=== PATIENT | male | born 1980 | race Caucasian/White ===

== ENCOUNTER → 2017-06-21 13:48 | Outpatient (CLI) | payer BC, SELFPAY ==
[2017-06-21 14:03] LABS: Bacteria 0 SEEN /hpf (None Seen); Mucous, Urine 0 SEEN /hpf (<or=2+); Red Blood Cells-Urine 0 SEEN /hpf (0-5); White Blood Cells 0 SEEN /hpf (0-5)
[2017-06-21 15:11] LABS: Color, Urine Yellow (Yellow); Glucose, Dipstick Normal (Normal); Ketone-Dipstick Negative (Negative); Leukocyte Esterase-Dipstick Negative /ul (Negative); Nitrite-Dipstick Negative (Negative); Occult Blood-Urine 10 /ul (Negative); Protein-Dipstick 30 mg/dl (Negative); Urine Bilirubin Dipstick Negative (Negative); Urine Clarity Clear (Clear); Urine Urobilinogen Normal (Normal)
[2017-06-21 15:25] LABS: Squamous Epithelial Cells - UA 0-5 SEEN /hpf (0-5)
[2017-06-21 15:39] LABS: Microalbumin:Creatinine Ratio 125.4 mg/g CRE (<30 mg/g CRE); Protein, Urine (Random) 38.9 mg/dL (<11.9); Urea Nitrogen, Urine 836 mg/dL (NO RANGE EST.); Urine Sodium 184 mmol/L (Not Establ.)
== END ==
DX: R80.9 Proteinuria, unspecified (principal)
CPT/HCPCS: 36415; 81001; 82043; 82570; 84156; 84300; 84540; 87086

== ENCOUNTER → 2017-06-22 09:23 | Outpatient (CLI) | payer BC, SELFPAY ==
[2017-06-22 10:25] LABS: Absolute Lymphocyte Count 1.66 X10^3/ul (0.83-4.51); Absolute Neutrophil Count 7.6 X10^3/uL (2.0-7.7); Basophil# 0.04 X10^3/uL; Basophil% 0.4 % (0-1); Eosinophil# 0.24 X10^3/uL; Eosinophils% 2.3 % (0-5); Hematocrit 44.6 % (40-54); Hemoglobin 14.1 g/dl (13.0-16.5); Lymphocyte # 1.66 X10^3/ul (4.0); Lymphocyte % 16.1 % (19-41); Mean Corp Hgb Conc 31.6 g/gl (32-36); Mean Corpuscular Hgb 25.5 pg (27.0-32.0); Mean Corpuscular Volume 80.7 fL (80-94); Mean Platelet Vol. 10.7 fl (6.2-12.0); Monocyte# 0.81 X10^3/uL; Monocyte% 7.8 % (0-10); Neutrophil # 7.56 X10^3/uL (2.7-7.7); Neutrophil % 73.1 % (47-70); POSITIVE COUNT NO; POSITIVE DIFFERENTIAL NO; POSITIVE MORPHOLOGY NO; Platelet Count 377 K/mm3 (150-450); RBC Distribution Width CV 14.4 % (11.6-14.6); RBC Distribution Width SD 41.9 fl (35.1-43.9); Red Blood Count 5.53 M/mm3 (4.6-6.2); White Blood Count 10.3 K/mm3 (4.4-11.0)
[2017-06-22 10:52] LABS: Albumin, Serum 3.4 g/dL (3.2-5.0); BUN 17 mg/dL (7-18); BUN/Creat Ratio 17.1 RATIO (10-20); Calcium,Total 8.9 mg/dL (8.5-10.1); Chloride 102 mmol/L (98-107); Cholesterol 80 mg/dL (200); EST Glomerular Filtration Rate 89 mL/min (>60); Est Glom Filt Rate - Afr Amer 107 mL/min (>60); Glucose 90 mg/dL (74-106); High Density Lipoprotein 47 mg/dL; Phosphorus 3.4 mg/dL (2.5-4.9); Potassium 4.1 mmol/L (3.5-5.1); Sodium Level 138 mmol/L (136-145); Triglycerides 25 mg/dL; Very Low Density Lipoprotein 5 mg/dL (5-40)
== END ==
DX: R80.9 Proteinuria, unspecified (principal)
CPT/HCPCS: 36415; 80061; 80069; 85025

== ENCOUNTER → 2018-09-02 | Outpatient (CLI) | payer BC, SELFPAY ==
[2018-09-02 14:58] LABS: Hematocrit 45.4 % (40-54); Hemoglobin 15.5 g/dl (13.0-16.5); Mean Corp Hgb Conc 34.1 g/gl (32-36); Mean Corpuscular Hgb 28.5 pg (27.0-32.0); Mean Corpuscular Volume 83.5 fL (80-94); Mean Platelet Vol. 11.8 fl (6.2-12.0); Platelet Count 257 K/mm3 (150-450); RBC Distribution Width CV 13.8 % (11.6-14.6); RBC Distribution Width SD 41.7 fl (35.1-43.9); Red Blood Count 5.44 M/mm3 (4.6-6.2); White Blood Count 10.7 K/mm3 (4.4-11.0)
[2018-09-02 15:01] LABS: Scan Indicated on CBC? Y/N NO
[2018-09-02 15:10] LABS: Protein, Urine (Random) 8.7 mg/dL (<11.9); Protein:Creat Ratio 208 mg/g CRE (0-200)
[2018-09-02 15:28] LABS: Albumin, Serum 3.6 g/dL (3.2-5.0); BUN 17 mg/dL (7-18); BUN/Creat Ratio 16.7 RATIO (10-20); Calcium,Total 8.4 mg/dL (8.5-10.1); Chloride 106 mmol/L (98-107); Creatinine, Serum 1.02 mg/dL (0.70-1.30); EST Glomerular Filtration Rate 86 mL/min (>60); Est Glom Filt Rate - Afr Amer 104 mL/min (>60); Glucose 87 mg/dL (74-106); Magnesium 1.7 mg/dL (1.6-2.6); Phosphorus 3.2 mg/dL (2.5-4.9); Potassium 3.9 mmol/L (3.5-5.1); Sodium Level 141 mmol/L (136-145)
== END | disposition home or self-care (01) ==
LOC: LAB 13:54
PROVIDERS: Family Provider Internal Medicine; PCP Internal Medicine; Referring Provider Internal Medicine Nephrology; Visit Provider Internal Medicine Nephrology
DX: K51.90 Ulcerative colitis, unspecified, without complications (principal); R80.9 Proteinuria, unspecified
CPT/HCPCS: 36415; 80069; 82570; 83735; 84156; 85027

== ENCOUNTER 2020-05-02 15:17 | Inpatient (IN) | payer BC, SELFPAY ==
[2020-05-02 15:18] VITALS: BP 153/103; PULSE 108; RESP 17; TEMP 36.3; O2SAT 97; BMI 37.2
[2020-05-02] MEDS: 0.9% Normal Saline 1,000 ML 150 ML IV (16:06)
[2020-05-02 16:08] LABS: Absolute Lymphocyte Count 2.09 X10^3/uL (0.83-4.51); Absolute Neutrophil Count 6.9 X10^3/uL (2.0-7.7); Basophil# 0.08 X10^3/uL; Basophil% 0.8 % (0-1); Eosinophil# 0.39 X10^3/uL; Eosinophils% 3.7 % (0-5); Hematocrit 47.6 % (40-54); Hemoglobin 15.8 g/dL (13.0-16.5); Lymphocyte # 2.09 X10^3/ul (4.0); Lymphocyte % 20.1 % (19-41); Mean Corp Hgb Conc 33.2 g/dL (32-36); Mean Corpuscular Volume 84.4 fL (80-94); Mean Platelet Vol. 11.4 fl (6.2-12.0); Monocyte# 0.85 X10^3/uL; Monocyte% 8.2 % (0-10); NRBC Flagged by Analyzer 0.2 % (0-5); Neutrophil # 6.91 X10^3/uL (2.7-7.7); Neutrophil % 66.2 % (47-70); Platelet Count 268 K/mm3 (150-450); RBC Distribution Width CV 12.9 % (11.6-14.6); RBC Distribution Width SD 39.6 fl (35.1-43.9); Red Blood Count 5.64 M/mm3 (4.6-6.2); White Blood Count 10.4 K/mm3 (4.4-11.0)
[2020-05-02 16:18] LABS: Anion Gap 3 (5-15); BUN 22 mg/dL (7-18); Calcium,Total 9.2 mg/dL (8.5-10.1); Chloride 109 mmol/L (98-107); Creatinine, Serum 1.22 mg/dL (0.70-1.30); EST Glomerular Filtration Rate 69 mL/min (>60); Est Glom Filt Rate - Afr Amer 84 mL/min (>60); Estimated Creatinine Clearance 79.68 ml/min; Glucose 92 mg/dL (74-106); Potassium 4.1 mmol/L (3.5-5.1); Sodium Level 141 mmol/L (136-145)
--- NOTE | 2020-05-02 16:33 | NURSING ---
MED SURG PAINTSIL CELLULITIS LEFT LEG, FAILED OP THERAPY
[2020-05-02 16:42] LABS: Lactic Acid 0.9 mmol/L (0.4-1.9)
--- NOTE | 2020-05-02 16:46 | HP.PCM_ITS ---
<Cody Katz - Last Filed: 05/02/20 16:46> Problem List (1) Cellulitis Status: Acute (2) Ulcerative colitis Status: Chronic (3) Ankylosing spondylitis Status: Chronic (4) Iritis Status: Chronic History of Present Illness Date of Admission: 05/02/20 Chief Complaint: left leg erythema The patient is a 39 year old M with pmhx of ulcerative colitis, ankylosing spondylitis, and iritis, also hx of cellulitis and MRSA who presented to the ER with c/o left lower extremity worsening cellulitic changes. 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 His left anterior distal leg was wounded. He developed erythema and swelling around it. He did have some purulent drainage last wednesday. At that point he went to urgent care and was placed on PO Doxycycline. He has had no further drainage, however the redness is spreading and the swelling has worsening, and the area is pruritic. He denies fevers/chills. No sob/cough, no nausea/vomiting/diarrhea/abdominal pain. [] Past Medical History Past Medical History (Chronic Problems): Chronic Problems Ulcerative colitis (Chronic) Ankylosing spondylitis (Chronic) Iritis (Chronic) Hemorrhagic diarrhea (Chronic) Allergies Iodinated Contrast Media [CONTRASTS] Allergy (Verified 05/02/20 15:18) Hives Home Medications: Ambulatory Orders Medication Instructions Recorded Mesalamine [Lialda] 1.2 gm PO BID 11/28/15 Difluprednate [Durezol] 1 drp LEFT EYE DAILY 05/02/20 Doxycycline 100 mg PO BID 05/02/20 Etanercept [Enbrel] 50 mg SQ FR 05/02/20 Surgical History: no surgical history Psychiatric History: No pertinent psych hx Lives: With Family Smoking Status: Never smoker Tobacco Use: Non-smoker Alcohol: Occasional Drugs: None - *Family History Maternal History Items: - - denies heart disease, stroke, diabetes, cancer Paternal History Items: - - denies heart disease, stroke, diabetes, cancer Review of Systems Constitutional: Denies: Chills, Fever, Weight Change HEENT: Denies: Head Aches, Sinus Congestion, Sinus Drainage Cardiovascular: Denies: Chest Pain, Heaviness, Light Headedness, Palpitations Respiratory: Denies: Cough, Shortness of Breath, Shortness of breath at rest, Sputum production Gastrointestinal: Denies: Abdominal Pain, Diarrhea, Nausea, Vomiting Genitourinary: Denies: Dysuria, Hesitancy, Urgency Musculoskeletal: Denies: Joint Pain, Joint Tenderness, Muscle pain Skin: Reports: Rash, Wounds Neurological: Denies: Numbness, Tingling, Focal weakness Psychiatric: Denies: Anxiety, Depression, Homicidal Ideations, Suicidal Ideations Hematologic/ Lymphatic: Denies: Easy Bruising, Easy Bleeding VTE Information - Inpt Only VTE Present on Admission: No VTE Mechan Device Prophylaxis: None VTE Pharm Prophylaxis ordered?: Yes Patient Problems: Active and Suspected Problems Cellulitis (Acute) - Physical Exam Vitals/I&O's: Vital Signs Temp Pulse Resp BP Pulse Ox 97.4 F L 108 H 17 153/103 H 97 05/02/20 15:18 05/02/20 15:18 05/02/20 15:18 05/02/20 15:18 05/02/20 15:18 Oxygen Delivery Method Room Air Weight: 252 lb 3.341 oz Body Mass Index (BMI) 37.2 General: Alert, Oriented x3, Cooperative HEENT: Atraumatic, PERRLA, EOMI, Normocephalic Neck: Supple, No JVD, Negative Carotid Bruits Lungs: Clear to auscultation, Normal air movement Cardiovascular: Regular rate, No murmurs Abdomen: Bowel Sounds Present, Soft, Non Tender Extremities: No edema, Capillary Refill Less than 3 Seconds Skin: - - left distal leg with erythema, warmth, tenderness, swelling. wound is scabbed over no drainage at this time. Musculoskeletal: No Tenderness to Palpation of Joints or Extremities Neurological: Cranial nerves II-XII grossly intact Psych/Mental Status: Normal Affect, Appropriate, Alert and oriented to time, place, person, mood and affect Laboratory Results 05/02/20 15:50: WBC 10.4, RBC 5.64, Hgb 15.8, Hct 47.6, MCV 84.4, MCH 28.0, MCHC 33.2, RDW Std Deviation 39.6, RDW Coeff of Michael 12.9, Plt Count 268, MPV 11.4, Immature Gran % (Auto) 1.000 H, Neut % (Auto) 66.2, Lymph % (Auto) 20.1, [place] % (Auto) 8.2, Eos % (Auto) 3.7, Baso % (Auto) 0.8, Absolute Neuts (auto) 6.9, Absolute Lymphs (auto) 2.09, Nucleated RBC % 0.2 05/02/20 15:50: Sodium 141, Potassium 4.1, Chloride 109 H, Carbon Dioxide 29.0, Anion Gap 3 L, BUN 22 H, Creatinine 1.22, Estim Creat Clear Calc 79.68, Est GFR (MDRD) Af Amer 84, Est GFR (MDRD) Non-Af 69, BUN/Creatinine Ratio 18.0, Glucose 92, Calcium 9.2 05/02/20 15:50: Lactic Acid 0.9 Current Medications Sodium Chloride () 1,000 mls @ 150 mls/hr IV .Q6H40M [facility] Last Admin: 05/02/20 16:06 Dose: 150 mls/hr Documented by: Vancomycin HCl 1,750 mg/ (Sodium Chloride) 535 mls @ 250 mls/hr IV X1 ONE Stop: 05/02/20 18:08 Assessment/Plan All Active Problems Cellulitis (Acute) 1. Acute cellulitis - LLE, failed outpatient doxy. Immunocompromised patient. Hx MRSA. Continue Vanco/Unasyn. Consult ID. No Leukocytosis, tho left shift present. No fever. Lactate negative. Mild tachy. 2. Hx Ankylosing spondylitis, ulcerative colitis, iritis - pt immunocompromised on biologic agents. DVT ppx: lovenox This patient was seen by Cody Katz PA-C under the supervision of Dr. Patel. <Ileana Patel - Last Filed: 05/02/20 19:24> History of Present Illness The patient is a 39 year old M [] Past Medical History Allergies Iodinated Contrast Media [CONTRASTS] Allergy (Verified 05/02/20 15:18) Hives - Physical Exam Vitals/I&O's: Vital Signs Temp Pulse Resp BP Pulse Ox 98.1 F 84 16 145/95 H 95 05/02/20 17:10 05/02/20 17:10 05/02/20 17:10 05/02/20 17:10 05/02/20 17:10 Oxygen Delivery Method Room Air Weight: 112.7 kg Body Mass Index (BMI) 36.6 Intake and Output for Last 24 Hours 04/30/20 05/01/20 05/02/20 23:59 23:59 23:59 Intake Total 112 / 112 Balance 112 / 112 Laboratory Results 05/02/20 15:50: WBC 10.4, RBC 5.64, Hgb 15.8, Hct 47.6, MCV 84.4, MCH 28.0, MCHC 33.2, RDW Std Deviation 39.6, RDW Coeff of Michael 12.9, Plt Count 268, MPV 11.4, Immature Gran % (Auto) 1.000 H, Neut % (Auto) 66.2, Lymph % (Auto) 20.1, [place] % (Auto) 8.2, Eos % (Auto) 3.7, Baso % (Auto) 0.8, Absolute Neuts (auto) 6.9, Absolute Lymphs (auto) 2.09, Nucleated RBC % 0.2 05/02/20 15:50: Sodium 141, Potassium 4.1, Chloride 109 H, Carbon Dioxide 29.0, Anion Gap 3 L, BUN 22 H, Creatinine 1.22, Estim Creat Clear Calc 79.68, Est GFR (MDRD) Af Amer 84, Est GFR (MDRD) Non-Af 69, BUN/Creatinine Ratio 18.0, Glucose 92, Calcium 9.2 05/02/20 15:50: Lactic Acid 0.9 05/02/20 15:50: Total Bilirubin 0.30, Direct Bilirubin 0.11, AST 46 H, ALT 124 H , Alkaline Phosphatase 101, Total Protein 7.8, Albumin 3.8, Globulin 4.0 Current Medications Acetaminophen (Acetaminophen 325 Mg Tablet) 650 mg PO Q6H PRN PRN PRN Reason: Pain Score 1-10/Temp > 100.7 F Enoxaparin Sodium (Enoxaparin 40 Mg/0.4 Ml Syringe) 40 mg SC DAILY [facility] Sodium Chloride () 1,000 mls @ 150 mls/hr IV .Q6H40M [facility] Last Admin: 05/02/20 16:06 Dose: 150 mls/hr Documented by: Vancomycin IV Pharmacy to Dose (1 ea/ Sodium Chloride) 500 mls @ 250 mls/hr IV PRN PRN; Protocol PRN Reason: Rx to Dose Ampicillin Sodium/Sulbactam (Sodium 3 gm/ Sodium Chloride) 112 mls @ 150 mls/hr IV Q8 [facility] Ondansetron HCl (Ondansetron 4 Mg/2 Ml Vial) 4 mg IV Q8H PRN PRN PRN Reason: NAUSEA/VOMITING Oxycodone HCl (Oxycodone 5 Mg Tablet) 5 mg PO Q4H PRN PRN PRN Reason: Pain Score 4-10 Senna/Docusate Sodium (Senna/Docusate Sodium 1 Tablet) 2 tablet PO BID PRN PRN PRN Reason: Constipation Sodium Chloride (0.9% Saline Lock 10 Ml Syringe) 10 - 40 ml IV UD PRN PRN Reason: SALINE FLUSH Assessment/Plan This patient was seen in conjunction with BRENDA Sabillon. I have independently interviewed and examined the patient and reviewed pertinent historical, laboratory, and other data. Please refer to BRENDA Sabillon note for his patient's presentation, findings, and recommendations. I have reviewed and his note and concur with his documentation 39-year-old male with past medical history of ankylosing spondylitis with h/o iritis, ulcerative colitis who comes in with a 3-week history of left lower extremity ulcer and swelling. 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 He tried to keep the wound clean. Developed swelling erythema. He was seen in the urgent care a week later, started on doxycycline with no improvement. He denied any dizziness or palpitations or fever or chills Rest of review of systems is negative Physical Exam: Gen: Appears very comfortable, not pale, not jaundiced, obese CVS:HS I +II, regular, no murmurs RESP: CTA GI: BS present and normal, soft, nontender, no palpable organs EXT: Left lower leg edema and erythema up to the left knee, left anterior leg wound with scab ASSESSMENT: 1. Acute left lower leg cellulitis/ulcer 2. Left lower leg swelling concerning for possible acute DVT 3. History of MRSA 4. Ankylosing spondylitis with iritis, ulcerative colitis Plan: Doppler ultrasound of the lower extremity start Acute left lower leg cellulitis Started on IV vancomycin and Unasyn; continue same ID consult Repeat blood work in a.m. Follow-up on blood cultures Inpatient E&M: 40324 Init Hosp L3
[2020-05-02 16:53] VITALS: BP 140/87; PULSE 65; RESP 16; TEMP 36.6; O2SAT 98
[2020-05-02 17:01] VITALS: BMI 36.6
[2020-05-02 17:05] VITALS: BMI 36.7
[2020-05-02 17:10] VITALS: BP 145/95; PULSE 84; RESP 16; TEMP 36.7; O2SAT 95
--- NOTE | 2020-05-02 17:58 | PCM.RX.CS ---
Consult Pharmacy has been consulted to manage selected antiobiotic: Vancomycin Type of Consult: New start Suspected Infection: Skin/Soft tissue Prior Doses of Antibiotics Received/Current Regimen: Received 1750mg iv x 1. Labs: Sodium 141 mmol/L (136-145) 05/02/20 15:50 Potassium 4.1 mmol/L (3.5-5.1) 05/02/20 15:50 Chloride 109 mmol/L (98-107) H 05/02/20 15:50 Carbon Dioxide 29.0 mmol/L (21.0-32.0) 05/02/20 15:50 Anion Gap 3 (5-15) L 05/02/20 15:50 BUN 22 mg/dL (7-18) H 05/02/20 15:50 Creatinine 1.22 mg/dL (0.70-1.30) 05/02/20 15:50 Est GFR (MDRD) Af Amer 84 mL/min (>60) 05/02/20 15:50 Est GFR (MDRD) Non-Af 69 mL/min (>60) 05/02/20 15:50 BUN/Creatinine Ratio 18.0 RATIO (10-20) 05/02/20 15:50 Glucose 92 mg/dL (74-106) 05/02/20 15:50 Weight used for dosin.7 kg Estimated Creatinine Clearance: ~80 ml/min Goal Trough: 15-20 mcg/mL Pharmacy Plan for Drug Dosing: Will begin 1750mg iv q12h per policy. Pharmacy Service will continue to monitor and adjust dosing as required. Follow-Up Labs: Trough Vancomycin - 2.6.21 @0430 before 0500 dose
[2020-05-02 18:05] LABS: AST(SGOT) 46 U/L (15-37); Alanine Aminotransfer ALT/SGPT 124 U/L (16-61); Albumin, Serum 3.8 g/dL (3.2-5.0); Alkaline Phosphatase 101 U/L (45-117); Bilirubin, Direct 0.11 mg/dL (0.00-0.30); Protein, Total 7.8 g/dL (6.4-8.2)
--- NOTE | 2020-05-02 19:16 | VDLE_ITS ---
Reason For Study: Swelling Procedure LEFT This is a venous duplex using B-mode, color GSV is normal. flow and spectral Doppler. CFV is compressible, spontaneous, phasic, Exam performed portable in patient room. competent, and demonstrates normal A preliminary report was called and/or faxed augmentation. to MS3 RN. FV is compressible, spontaneous, phasic, competent and demonstrates normal augmentation. POP V is compressible, spontaneous, phasic, competent and demonstrates normal augmentation. T/P Trunk is compressible. PTV is compressible. LT PerV is compressible. Interpretation Summary There is no evidence of left lower extremity deep vein thrombosis. Left great saphenous vein appears patent and compressible segmentally. Ordering Physician: Ilaena Patel Referring Physician: Amalia Wu D.O. Performed By: Christy Ansari RVT
[2020-05-02 20:30] VITALS: BP 138/92; PULSE 81; RESP 16; TEMP 36.5; O2SAT 97
[2020-05-02 21:31] LABS: Probe Check PASS
[2020-05-02 21:32] LABS: M R Staph aureus DNA By PCR POSITIVE (Negative)
--- NOTE | 2020-05-02 22:10 | PCS.PANDOC ---
PANDEMIC DOCUMENTATION INITIATED: Date: 05/02/2019 Time: 2209
[2020-05-03] MEDS: 0.9% Normal Saline 1,000 ML 150 ML IV ×2 (01:24→08:52)
[2020-05-03 03:00] VITALS: BP 115/76; PULSE 75; RESP 16; TEMP 36.6; O2SAT 97
[2020-05-03 07:10] LABS: Absolute Lymphocyte Count 1.55 X10^3/uL (0.83-4.51); Absolute Neutrophil Count 5.1 X10^3/uL (2.0-7.7); Basophil# 0.07 X10^3/uL; Basophil% 0.9 % (0-1); Eosinophil# 0.49 X10^3/uL; Eosinophils% 6.2 % (0-5); Hematocrit 48.9 % (40-54); Lymphocyte # 1.55 X10^3/ul (4.0); Lymphocyte % 19.5 % (19-41); Mean Corp Hgb Conc 32.7 g/dL (32-36); Mean Corpuscular Hgb 27.7 pg (27.0-32.0); Mean Corpuscular Volume 84.6 fL (80-94); Monocyte# 0.69 X10^3/uL; Monocyte% 8.7 % (0-10); NRBC Flagged by Analyzer 0 % (0-5); Neutrophil # 5.06 X10^3/uL (2.7-7.7); Neutrophil % 63.8 % (47-70); Platelet Count 244 K/mm3 (150-450); Red Blood Count 5.78 M/mm3 (4.6-6.2); White Blood Count 7.9 K/mm3 (4.4-11.0)
[2020-05-03 07:52] VITALS: BP 161/92; PULSE 74; RESP 14; TEMP 36.7; O2SAT 97
[2020-05-03 07:52] LABS: ALB/GLOB Ratio 0.9 RATIO (0.9-2.4); AST(SGOT) 46 U/L (15-37); Alanine Aminotransfer ALT/SGPT 111 U/L (16-61); Albumin, Serum 3.3 g/dL (3.2-5.0); Alkaline Phosphatase 91 U/L (45-117); Anion Gap 5 (5-15); BUN 18 mg/dL (7-18); BUN/Creat Ratio 16.7 RATIO (10-20); Calcium,Total 8.3 mg/dL (8.5-10.1); Chloride 108 mmol/L (98-107); Creatinine, Serum 1.08 mg/dL (0.70-1.30); EST Glomerular Filtration Rate 80 mL/min (>60); Est Glom Filt Rate - Afr Amer 97 mL/min (>60); Estimated Creatinine Clearance 90.01 ml/min; Globulin 3.6 g/dL (2.2-4.2); Glucose 102 mg/dL (74-106); Potassium 4.3 mmol/L (3.5-5.1); Protein, Total 6.9 g/dL (6.4-8.2); Sodium Level 140 mmol/L (136-145)
--- NOTE | 2020-05-03 07:52 | PCM.PN.HOSP ---
Patient Problems: Active and Suspected Problems Cellulitis (Acute) Reason for Visit: Follow-up on acute left lower extremity cellulitis Subjective: Patient was seen and examined. Denied any new complaints. Erythema and pain in the left lower leg is improved. Doppler ultrasound left lower extremity is negative for acute DVT. Objective: Physical exam: General: Alert, Oriented x3, Cooperative HEENT: Atraumatic, PERRLA, EOMI, Normocephalic Neck: Supple, No JVD, Negative Carotid Bruits Lungs: Clear to auscultation, Normal air movement Cardiovascular: Regular rate, No murmurs Abdomen: Bowel Sounds Present, Soft, Non Tender Extremities: No edema, Capillary Refill Less than 3 Seconds Skin: - - left distal leg with erythema, warmth, tenderness, swelling, improved. wound is scabbed over no drainage at this time. Musculoskeletal: No Tenderness to Palpation of Joints or Extremities Neurological: Cranial nerves II-XII grossly intact Psych/Mental Status: Normal Affect, Appropriate, Alert and oriented to time, place, person, mood and affect Vitals/I&O's: Vital Signs Temp Pulse Resp BP Pulse Ox 97.8 F 75 16 115/76 97 05/03/20 03:00 05/03/20 03:00 05/03/20 03:00 05/03/20 03:00 05/03/20 03:00 Oxygen Delivery Method Room Air Weight: 112.7 kg Body Mass Index (BMI) 36.6 Intake and Output for Last 24 Hours 05/01/20 05/02/20 05/03/20 23:59 23:59 23:59 Intake Total 1759 / 1759 1247 / 1247 Output Total 550 / 550 Balance 1759 / 1759 697 / 697 Laboratory Results 05/02/20 15:50: WBC 10.4, RBC 5.64, Hgb 15.8, Hct 47.6, MCV 84.4, MCH 28.0, MCHC 33.2, RDW Std Deviation 39.6, RDW Coeff of Michael 12.9, Plt Count 268, MPV 11.4, Immature Gran % (Auto) 1.000 H, Neut % (Auto) 66.2, Lymph % (Auto) 20.1, [place] % (Auto) 8.2, Eos % (Auto) 3.7, Baso % (Auto) 0.8, Absolute Neuts (auto) 6.9, Absolute Lymphs (auto) 2.09, Nucleated RBC % 0.2 05/02/20 15:50: Sodium 141, Potassium 4.1, Chloride 109 H, Carbon Dioxide 29.0, Anion Gap 3 L, BUN 22 H, Creatinine 1.22, Estim Creat Clear Calc 79.68, Est GFR (MDRD) Af Amer 84, Est GFR (MDRD) Non-Af 69, BUN/Creatinine Ratio 18.0, Glucose 92, Calcium 9.2 05/02/20 15:50: Lactic Acid 0.9 05/02/20 15:50: Total Bilirubin 0.30, Direct Bilirubin 0.11, AST 46 H, ALT 124 H, Alkaline Phosphatase 101, Total Protein 7.8, Albumin 3.8, Globulin 4.0 05/02/20 19:15: MRSA (PCR) POSITIVE H 05/03/20 06:45: WBC 7.9, RBC 5.78, Hgb 16.0, Hct 48.9, MCV 84.6, MCH 27.7, MCHC 32.7, RDW Std Deviation 40.0, RDW Coeff of Michael 13.0, Plt Count 244, MPV 11.0, Immature Gran % (Auto) 0.900, Neut % (Auto) 63.8, Lymph % (Auto) 19.5, [place] % (Auto) 8.7, Eos % (Auto) 6.2 H, Baso % (Auto) 0.9, Absolute Neuts (auto) 5.1, Absolute Lymphs (auto) 1.55, Nucleated RBC % 0 05/03/20 06:45: Sodium Pending, Potassium Pending, Chloride Pending, Carbon Dioxide Pending, Anion Gap Pending, BUN Pending, Creatinine Pending, Est GFR (MDRD) Af Amer Pending, Est GFR (MDRD) Non-Af Pending, BUN/Creatinine Ratio Pending, Glucose Pending, Calcium Pending, Total Bilirubin Pending, AST Pending, ALT Pending, Alkaline Phosphatase Pending, Total Protein Pending, Albumin Pending Current Medications Acetaminophen (Acetaminophen 325 Mg Tablet) 650 mg PO Q6H PRN PRN PRN Reason: Pain Score 1-10/Temp > 100.7 F Diphenhydramine HCl (Diphenhydramine 25 Mg Capsule) 25 mg PO Q6H PRN PRN PRN Reason: ITCHING Enoxaparin Sodium (Enoxaparin 40 Mg/0.4 Ml Syringe) 40 mg SC DAILY [facility] Sodium Chloride () 1,000 mls @ 150 mls/hr IV .Q6H40M [facility] Last Infusion: 05/03/20 06:24 Dose: 150 mls/hr Documented by: Vancomycin IV Pharmacy to Dose (1 ea/ Sodium Chloride) 500 mls @ 250 mls/hr IV PRN PRN; Protocol PRN Reason: Rx to Dose Ampicillin Sodium/Sulbactam (Sodium 3 gm/ Sodium Chloride) 112 mls @ 150 mls/hr IV Q8 [facility] Last Infusion: 05/03/20 06:24 Dose: Infused Documented by: Ondansetron HCl (Ondansetron 4 Mg/2 Ml Vial) 4 mg IV Q8H PRN PRN PRN Reason: NAUSEA/VOMITING Oxycodone HCl (Oxycodone 5 Mg Tablet) 5 mg PO Q4H PRN PRN PRN Reason: Pain Score 4-10 Senna/Docusate Sodium (Senna/Docusate Sodium 1 Tablet) 2 tablet PO BID PRN PRN PRN Reason: Constipation Sodium Chloride (0.9% Saline Lock 10 Ml Syringe) 10 - 40 ml IV UD PRN PRN Reason: SALINE FLUSH Medical Necessity - Tobacco Use Smoking Status: Never smoker Tobacco Use: Non-smoker Assessment/Plan All Active Problems Cellulitis (Acute) 1. Acute left lower leg cellulitis/ulcer, improving, MRSA PCR positive, continue IV vancomycin and Unasyn ID consulted, follow-up on recommendations 2. Left lower leg swelling, acute DVT ruled out with negative Doppler ultrasound 3. Ankylosing spondylitis with iritis, ulcerative colitis, etanercept, mesalamine and difluprednate on hold 4. DVT PPx- Lovenox SC Inpatient E&M: [id number] [facility] Hosp L2
--- NOTE | 2020-05-03 10:15 | CASEMGMT ---
RN ROCÍO Face to Face with patient for initial transition planning/care coordination assessment. RN CM introduced self and role at [facility]. Patient lying in bed, alert and oriented. Patient willing to participate in assessment and is able to answer all questions appropriately. Care providers, pharmacy, and demographics verified. Patient wishes to discharge home, denies need for home health at this time. Patient states he has no further needs or concerns at this time. CM to follow for discharge planning needs that may arise. PCP: Bryce Specialists: Faustina theater usher; BOLA Rodrigues; [facility] Preferred Pharmacy: [facility] Insurance: [employer] Prescription Benefit: yes Living Will/HPOA: none LNOK: Living Arrangements: Patient lives with in a 2 story home with bed and bath on first floor. Patient is independent and able to ambulate stairs. Transportation: self/ DME/HHC: patient denies DME or previous HHC. Disposition Plan: Patient to discharge home with family support and follow-up plans in place. Christy DAIGLE, RN, CM
[2020-05-03] MEDS: Enoxaparin 40 MG/0.4 ML Syringe SC (11:05)
[2020-05-03] MEDS: Acetaminophen 325 MG Tablet 650 MG PO (11:07)
[2020-05-03] MEDS: DiphenhydrAMINE 25 MG Capsule PO (11:08)
--- NOTE | 2020-05-03 13:49 | PCM.DC ---
- Discharge Diagnoses Current Active Problems: Current Active and Chronic Problems Cellulitis (Acute) Ulcerative colitis (Chronic) Ankylosing spondylitis (Chronic) Iritis (Chronic) Reason(s) for Visit for Discharge Instructions: Left lower leg cellulitis You will use the following diet at home:: Regular Your food should be the consistency of: Regular Your liquids should be the consistency of: Regular/Thin Discharge Activity: Return to Normal Activity Additional Instructions: Complete your doxycycline as prescribed. Complete Keflex for 5 days. Continue to lift your left lower extremity. Follow-up with your primary care doctor within 1 to 2 weeks. Allergies/Adverse Reactions: Allergies Iodinated Contrast Media [CONTRASTS] Allergy (Verified 05/02/20 15:18) Hives Medications to take at Discharge Mesalamine [Lialda] 1.2 gm PO BID 11/28/15 Difluprednate [Durezol] 1 drp LEFT EYE DAILY 05/02/20 Doxycycline 100 mg PO BID 05/02/20 Etanercept [Enbrel] 50 mg SQ FR 05/02/20 Cephalexin [Keflex] 500 mg PO Q6 5 Days #20 cap 05/03/20 The following prescriptions were given: Cephalexin [Keflex] 500 mg PO Q6 5 Days #20 cap Transmission Status: Pending to [facility] Primary Care Physician: Amalia Wu DO [Primary Care Provider] - Please follow up with your Primary Care Physician in: within 1-2 weeks Test Results: Test results from this visit will be discussed in further detail at your follow-up appointment, if applicable. Proposed Discharge Date: 05/03/20
--- NOTE | 2020-05-03 13:50 | DS.PCM_ITS ---
Discharge Date and Diagnosis - Problem List Patient Problems: Active and Suspected Problems Cellulitis (Acute) Date of Admission: 05/02/20 Date of Discharge: 05/03/20 - Primary Discharge Diagnosis Acute Problems: Active Problems Acute left lower leg cellulitis, status post failed outpatient therapy - Secondary Discharge Diagnosis Chronic Problems: Chronic Problems Ulcerative colitis (Chronic) Ankylosing spondylitis (Chronic) Iritis (Chronic) Hemorrhagic diarrhea (Chronic) Hospital Course and Treatment Operations: None Procedures: - - doppler ultrasound of left lower leg- negative Summary of Care Provided: The patient is a 39 year old M with past medical history of ankylosing spondylitis, ulcerative colitis, iritis who comes in with worsening left lower extremity erythema, pain and swelling. Patient had jumped off a trailer 3 weeks ago and bumped his leg against a metal rail of the truck. He developed the left anterior distal leg wound. Subsequently this has developed erythema and swelling. He was started on p.o. doxycycline in the urgent care. Redness and swelling has worsened. He was admitted and started on IV vancomycin and Unasyn with improvement. He was seen by infectious disease and recommended to be discharged to complete doxycycline and Keflex for 5 days. He will need to follow-up in the outpatient by his primary care doctor within 1- 2 weeks. Patient Problems: Active and Suspected Problems Cellulitis (Acute) Subjective: See progress note of the day Objective: See progress note of the day - Physical Exam Vitals/I&O's: Vital Signs Temp Pulse Resp BP Pulse Ox 98.0 F 74 14 161/92 H 97 05/03/20 07:52 05/03/20 07:52 05/03/20 07:52 05/03/20 07:52 05/03/20 07:52 Oxygen Delivery Method Room Air Weight: 112.7 kg Body Mass Index (BMI) 36.6 Intake and Output for Last 24 Hours 05/01/20 05/02/20 05/03/20 23:59 23:59 23:59 Intake Total 1759 / 1759 1612 / 1612 Output Total 550 / 550 Balance 1759 / 1759 1062 / 1062 Laboratory Results 05/02/20 15:50: WBC 10.4, RBC 5.64, Hgb 15.8, Hct 47.6, MCV 84.4, MCH 28.0, MCHC 33.2, RDW Std Deviation 39.6, RDW Coeff of Michael 12.9, Plt Count 268, MPV 11.4, Immature Gran % (Auto) 1.000 H, Neut % (Auto) 66.2, Lymph % (Auto) 20.1, [place] % (Auto) 8.2, Eos % (Auto) 3.7, Baso % (Auto) 0.8, Absolute Neuts (auto) 6.9, Absolute Lymphs (auto) 2.09, Nucleated RBC % 0.2 05/02/20 15:50: Sodium 141, Potassium 4.1, Chloride 109 H, Carbon Dioxide 29.0, Anion Gap 3 L, BUN 22 H, Creatinine 1.22, Estim Creat Clear Calc 79.68, Est GFR (MDRD) Af Amer 84, Est GFR (MDRD) Non-Af 69, BUN/Creatinine Ratio 18.0, Glucose 92, Calcium 9.2 05/02/20 15:50: Lactic Acid 0.9 05/02/20 15:50: Total Bilirubin 0.30, Direct Bilirubin 0.11, AST 46 H, ALT 124 H , Alkaline Phosphatase 101, Total Protein 7.8, Albumin 3.8, Globulin 4.0 05/02/20 19:15: MRSA (PCR) POSITIVE H 05/03/20 06:45: WBC 7.9, RBC 5.78, Hgb 16.0, Hct 48.9, MCV 84.6, MCH 27.7, MCHC 32.7, RDW Std Deviation 40.0, RDW Coeff of Michael 13.0, Plt Count 244, MPV 11.0, Immature Gran % (Auto) 0.900, Neut % (Auto) 63.8, Lymph % (Auto) 19.5, Custer % (Auto) 8.7, Eos % (Auto) 6.2 H, Baso % (Auto) 0.9, Absolute Neuts (auto) 5.1, Absolute Lymphs (auto) 1.55, Nucleated RBC % 0 05/03/20 06:45: Sodium 140, Potassium 4.3, Chloride 108 H, Carbon Dioxide 27.0, Anion Gap 5, BUN 18, Creatinine 1.08, Estim Creat Clear Calc 90.01, Est GFR (MDRD) Af Amer 97, Est GFR (MDRD) Non-Af 80, BUN/Creatinine Ratio 16.7, Glucose 102, Calcium 8.3 L, Total Bilirubin 0.70, AST 46 H, ALT 111 H, Alkaline Phosphatase 91, Total Protein 6.9, Albumin 3.3, Globulin 3.6, Albumin/Globulin Ratio 0.9 Current Medications Acetaminophen (Acetaminophen 325 Mg Tablet) 650 mg PO Q6H PRN PRN PRN Reason: Pain Score 1-10/Temp > 100.7 F Last Admin: 05/03/20 11:07 Dose: 650 mg Documented by: Diphenhydramine HCl (Diphenhydramine 25 Mg Capsule) 25 mg PO Q6H PRN PRN PRN Reason: ITCHING Last Admin: 05/03/20 11:08 Dose: 25 mg Documented by: Enoxaparin Sodium (Enoxaparin 40 Mg/0.4 Ml Syringe) 40 mg SC DAILY [facility] Last Admin: 05/03/20 11:05 Dose: 40 mg Documented by: Sodium Chloride () 1,000 mls @ 150 mls/hr IV .Q6H40M [facility] Last Admin: 05/03/20 08:52 Dose: 150 mls/hr Documented by: Vancomycin IV Pharmacy to Dose (1 ea/ Sodium Chloride) 500 mls @ 250 mls/hr IV PRN PRN; Protocol PRN Reason: Rx to Dose Ampicillin Sodium/Sulbactam (Sodium 3 gm/ Sodium Chloride) 112 mls @ 150 mls/hr IV Q8 [facility] Last Infusion: 05/03/20 06:24 Dose: Infused Documented by: Ondansetron HCl (Ondansetron 4 Mg/2 Ml Vial) 4 mg IV Q8H PRN PRN PRN Reason: NAUSEA/VOMITING Oxycodone HCl (Oxycodone 5 Mg Tablet) 5 mg PO Q4H PRN PRN PRN Reason: Pain Score 4-10 Senna/Docusate Sodium (Senna/Docusate Sodium 1 Tablet) 2 tablet PO BID PRN PRN PRN Reason: Constipation Sodium Chloride (0.9% Saline Lock 10 Ml Syringe) 10 - 40 ml IV UD PRN PRN Reason: SALINE FLUSH Discharge Diet: No Restrictions Discharge Activity: Return to Normal Activity Home Medications: Medications to take at Discharge Mesalamine [Lialda] 1.2 gm PO BID 11/28/15 Difluprednate [Durezol] 1 drp LEFT EYE DAILY 05/02/20 Doxycycline 100 mg PO BID 05/02/20 Etanercept [Enbrel] 50 mg SQ FR 05/02/20 Cephalexin [Keflex] 500 mg PO Q6 5 Days #20 cap 05/03/20 Following Prescriptions Were Given to Patient: Cephalexin [Keflex] 500 mg PO Q6 5 Days #20 cap Transmission Status: Pending to [facility] Primary Care Physician: Amalia Wu DO [Primary Care Provider] - Please follow up with your Primary Care Physician in: within 1-2 weeks Disposition: Home Minutes spent on discharge:: 40 Patient Condition:: Stable Medical Necessity - Tobacco Use Smoking Status: Never smoker Tobacco Use: Non-smoker Meaningful Use Info Meaningful Use Diagnoses (Choose all that apply): None applicable Inpatient E&M: [id number] [facility]
[2020-05-03 14:25] VITALS: BP 145/87; PULSE 71; RESP 14; TEMP 36.7; O2SAT 98
--- NOTE | 2020-05-03 14:56 | PCM.HP.ID ---
Problem List (1) Cellulitis Status: Acute Reason for Consult: cellulitis Consulted by: Dr. Patel History of Present Illness: The patient is a 39 year old M hit and cut his L jc about 2 weeks on his truck, had progressive redness, pain, swelling, serous drainage. Got put on doxy, not much improvement, came to ED, started vanc/unasyn, no drainage, redness much improved. Full ROS performed and neg except as noted above. - Medical History Past Medical History (Chronic Problems): Chronic Problems Ulcerative colitis (Chronic) Ankylosing spondylitis (Chronic) Iritis (Chronic) Hemorrhagic diarrhea (Chronic) Allergies/Adverse Reactions: Allergies Iodinated Contrast Media [CONTRASTS] Allergy (Verified 05/02/20 15:18) Hives Home Medications: Ambulatory Orders Medication Instructions Recorded Mesalamine [Lialda] 1.2 gm PO BID 11/28/15 Difluprednate [Durezol] 1 drp LEFT EYE DAILY 05/02/20 Doxycycline 100 mg PO BID 05/02/20 Etanercept [Enbrel] 50 mg SQ FR 05/02/20 Cephalexin [Keflex] 500 mg PO Q6 5 Days #20 cap 05/03/20 - Social History Tobacco Use: non-smoker Vital Signs Temp Pulse Resp BP Pulse Ox 98.1 F 71 14 145/87 H 98 05/03/20 14:25 05/03/20 14:25 05/03/20 14:25 05/03/20 14:25 05/03/20 14:25 Oxygen Delivery Method Room Air Weight: 112.7 kg Body Mass Index (BMI) 36.6 Laboratory Tests Past 24 Hrs 05/02/20 05/02/20 05/02/20 15:50 15:50 15:50 WBC 10.4 RBC 5.64 Hgb 15.8 Hct 47.6 MCV 84.4 MCH 28.0 MCHC 33.2 RDW Std Deviation 39.6 RDW Coeff of Michael 12.9 Plt Count 268 MPV 11.4 Immature Gran % (Auto) 1.000 H Neut % (Auto) 66.2 Lymph % (Auto) 20.1 [place] % (Auto) 8.2 Eos % (Auto) 3.7 Baso % (Auto) 0.8 Absolute Neuts (auto) 6.9 Absolute Lymphs (auto) 2.09 Nucleated RBC % 0.2 Sodium 141 Potassium 4.1 Chloride 109 H Carbon Dioxide 29.0 Anion Gap 3 L BUN 22 H Creatinine 1.22 Estim Creat Clear Calc 79.68 Est GFR (MDRD) Af Amer 84 Est GFR (MDRD) Non-Af 69 BUN/Creatinine Ratio 18.0 Glucose 92 Lactic Acid 0.9 Calcium 9.2 Total Bilirubin Direct Bilirubin AST ALT Alkaline Phosphatase Total Protein Albumin Globulin Albumin/Globulin Ratio MRSA (PCR) 05/02/20 05/02/20 05/03/20 15:50 19:15 06:45 WBC 7.9 RBC 5.78 Hgb 16.0 Hct 48.9 MCV 84.6 MCH 27.7 MCHC 32.7 RDW Std Deviation 40.0 RDW Coeff of Michael 13.0 Plt Count 244 MPV 11.0 Immature Gran % (Auto) 0.900 Neut % (Auto) 63.8 Lymph % (Auto) 19.5 [place] % (Auto) 8.7 Eos % (Auto) 6.2 H Baso % (Auto) 0.9 Absolute Neuts (auto) 5.1 Absolute Lymphs (auto) 1.55 Nucleated RBC % 0 Sodium Potassium Chloride Carbon Dioxide Anion Gap BUN Creatinine Estim Creat Clear Calc Est GFR (MDRD) Af Amer Est GFR (MDRD) Non-Af BUN/Creatinine Ratio Glucose Lactic Acid Calcium Total Bilirubin 0.30 Direct Bilirubin 0.11 AST 46 H ALT 124 H Alkaline Phosphatase 101 Total Protein 7.8 Albumin 3.8 Globulin 4.0 Albumin/Globulin Ratio MRSA (PCR) POSITIVE H 05/03/20 06:45 WBC RBC Hgb Hct MCV MCH MCHC RDW Std Deviation RDW Coeff of Michael Plt Count MPV Immature Gran % (Auto) Neut % (Auto) Lymph % (Auto) [place] % (Auto) Eos % (Auto) Baso % (Auto) Absolute Neuts (auto) Absolute Lymphs (auto) Nucleated RBC % Sodium 140 Potassium 4.3 Chloride 108 H Carbon Dioxide 27.0 Anion Gap 5 BUN 18 Creatinine 1.08 Estim Creat Clear Calc 90.01 Est GFR (MDRD) Af Amer 97 Est GFR (MDRD) Non-Af 80 BUN/Creatinine Ratio 16.7 Glucose 102 Lactic Acid Calcium 8.3 L Total Bilirubin 0.70 Direct Bilirubin AST 46 H ALT 111 H Alkaline Phosphatase 91 Total Protein 6.9 Albumin 3.3 Globulin 3.6 Albumin/Globulin Ratio 0.9 MRSA (PCR) - Other Studies Radiology: [] reviewed Other Studies: [] Route of nutrition/ use of supplements: [] Nutritional Intake: [] IV Site: [] Walker Catheter: [] - Physical Exam General: Alert, Oriented x3, Cooperative, No apparent distress HEENT: Atraumatic, PERRLA, EOMI Neck: Supple, No Nodes Lungs: Clear to auscultation, Normal air movement Cardiovascular: Regular rate, Regular Rhythm Abdomen: Soft, Non Tender, Non-Distended Skin: Rash Present - fading L jc Musculoskeletal: No Tenderness to Palpation of Joints or Extremities Neurological: Cranial nerves II-XII grossly intact - Assessment/Plan Antibiotics: [] Assessment/Plan: [] Active and Suspected Problems Cellulitis (Acute) L jc cellulitis, no purulence currently, much improved, ok for d/c home on 5 days doxy and keflex. Will follow as needed, d/w Dr. Patel, thank you
--- NOTE | 2020-05-27 15:36 | ED.DCSUM_ITS ---
- ER Visit Summary Date of Service: 05/27/20 Chief Complaint: [Redness and swelling to left leg] History of Present Illness: The patient is a 39 M [presented to the emergency department with redness and swelling to his left leg that started 3 weeks ago. Patient seen at urgent care 5 days ago and started on doxycycline and was given a tetanus shot. Patient initially had a fall and bumped his leg on metal edge of a trailer. Patient continues to have redness and swelling despite being on antibiotics. He denies fevers or chills or sweats. He denies any Covid exposures. Patient does have history of ankylosing spondylitis and history of iritis as well as ulcerative colitis. Patient allergic to IV dye.] Physical Examination: [HEENT-PERRLA, EOMI. Cranial nerves II through XII grossly intact. TMs clear. Mucous membranes moist. No adenopathy. Cardiovascular-regular rate and rhythm without murmur or ectopy Lungs-clear to auscultation, chest wall stable without crepitus or subcu emphysema Abdomen-normoactive bowel sounds, soft, nontender, no rebound or rigidity, no pe ritoneal signs. Extremities-intact ?4, normal range of motion, normal pulses. Left leg-patient does have a area of redness and swelling to the left leg with cellulitic changes. Neurovascular intact distally.] Test Results: [CBC with differential showing a 10.4, hemoglobin 15.8, hematocrit 47.6, platelets 268. Chemistries unremarkable. Lactate normal.] Emergency Department Course and Treatment: [IV line established on arrival. Patient was started on vancomycin and Unasyn.] Case discussed with hospitalist will evaluate patient for admission. Treatment Plan: Admit [] Disposition: [Admit] Impression: [Cellulitis left leg-failed outpatient therapy] This note was generated with [employer] dictation software. It may contain incorrect words, spelling, and punctuation that were not noted in review of the chart prior to signing ED Disposition - Plan for ED Patient: Disposition: Acute [facility]
== END 2020-05-03 18:59 | disposition home or self-care (01) | DRG 603 ==
LOC: ED 15:49 → MS3 16:46
PROVIDERS: Admitting Provider Internal Medicine; Emergency Provider Emergency Medicine; PCP Internal Medicine; Visit Provider Internal Medicine
DX: L03.116 Cellulitis of left lower limb (principal); K51.90 Ulcerative colitis, unspecified, without complications; H20.9 Unspecified iridocyclitis; D84.9 Immunodeficiency, unspecified; S81.812A Laceration without foreign body, left lower leg, initial encounter; B95.62 Methicillin resistant Staphylococcus aureus infection as the cause of diseases classified elsewhere; M45.9 Ankylosing spondylitis of unspecified sites in spine; Z86.14 Personal history of Methicillin resistant Staphylococcus aureus infection; E66.9 Obesity, unspecified; Z68.36 Body mass index [BMI] 36.0-36.9, adult; W19.XXXA Unspecified fall, initial encounter; Y93.9 Activity, unspecified; Y92.9 Unspecified place or not applicable; Z79.899 Other long term (current) drug therapy
CPT/HCPCS: 36415; 80048; 80053; 80076; 83605; 85025; 87040; 87641; 93971; 99284; J7030; J7040; J0295

== ENCOUNTER → 2024-01-14 | Outpatient (CLI) | payer OTHER, SELFPAY ==
--- NOTE | 2024-01-14 09:23 | US_ITS ---
STUDY: ABDOMINAL ULTRASOUND - RIGHT UPPER QUADRANT; ELASTOGRAPHY REASON FOR VISIT: Male, 43 years old. Elevated liver enzymes. TECHNIQUE: Ultrasound evaluation of the right upper quadrant was performed with real-time and static alexandra-scale imaging. Point quantification shear wave elastography was performed ([id number]). TECHNICAL QUALITY: Limited. Examination limited by bowel gas. COMPARISON: None. FINDINGS: Liver: The liver is enlarged and measures 18.5 cm. There is increased echogenicity consistent with fatty infiltration. The bile ducts are within normal limits. There is hepatic color flow. The direction of portal flow is hepatopetal. There is no demonstrated mass lesion. Median liver stiffness measured 9.9 kPa. Gallbladder: Normal distended gallbladder. The gallbladder wall measures 2.8 mm. There is a negative sonographic Enamorado''s sign. There is no pericholecystic fluid. There are no gallstones. Common Bile Duct (C.B.D.): The common bile duct was not measured due to overlying bowel gas. Pancreas: Nonvisualization of pancreas due to overlying bowel gas. Right Kidney: Normal size of the right kidney. The right kidney measures 13.5 cm x 5.2 cm x 5.8 cm. Normal renal cortex. The right cortex measures 1.7 cm. There is no demonstrated renal mass or cyst. There is no right hydronephrosis. US/ABD Limited w/ Elastography IMPRESSION: 1. Liver stiffness measures 9.9 kPa compatible with F2-F3 (Mild to moderate liver fibrosis) Metavir score. Electronically Signed: Andrew Ramirez MD at 10:21 EDT ,
== END | disposition home or self-care (01) ==
PROVIDERS: PCP Internal Medicine; Referring Provider Internal Medicine Gastroenterology; Visit Provider Internal Medicine Gastroenterology
DX: R94.5 Abnormal results of liver function studies (principal)
CPT/HCPCS: 76705; 76981

== ENCOUNTER 2024-01-31 20:05 | Emergency (ER) | payer OTHER, SELFPAY ==
[2024-01-31 20:05] VITALS: BP 176/111; PULSE 86; RESP 16; TEMP 36.7; O2SAT 98; BMI 36.0
--- NOTE | 2024-01-31 20:21 | EDS_ITS ---
HPI <BRENDA Cervantes - Last Filed: 01/31/24 21:20> History of Present Illness Chief Complaint: Foreign Body Narrative Narrative: 43-year-old male states he was drinking a seltzer and ingested a piece of metal that had broken off the can. It was a small round circular piece that you pop open with the tab. He states he had some irritation in his throat so he drank the rest of the seltzer and it seemed to go down but now is worried maybe he should not have done that. He has no difficulty swallowing or breathing. PFSH <BRENDA Cervantes - Last Filed: 01/31/24 21:20> [facility] Medical History (Updated 01/31/24 @ 21:16 by BRENDA Cervantes) Liver fibrosis Fatty liver Home Medications ?Medication ?Instructions ?Recorded ?Last Taken ?Type mesalamine 1.2 gram tablet,delayed 1.2 g PO BID 11/28/15 05/02/20 History release difluprednate 0.05 % eye drops 1 drp LEFT EYE DAILY 05/02/20 05/01/20 History infliximab 100 mg intravenous IV .q6w 01/31/24 01/03/24 History solution (Remicade) Allergy/AdvReac Type Severity Reaction Status Date / Time Iodinated Contrast Media Allergy Hives Verified 01/31/24 20:06 (CONTRASTS) Social History Smoking Status: Never smoker ROS <BRENDA Cervantes - Last Filed: 01/31/24 21:20> ROS ED ROS Narrative CVS: Negative for chest pain. Respiratory: Negative for shortness of breath. GI: Negative for abdominal pain, nausea, vomiting. EXAM <BRENDA Cervantes - Last Filed: 01/31/24 21:20> Physical Exam Narrative Exam Narrative: CONST: Patient sitting in no acute distress. EYES: Normal inspection. ENT: Normal inspection, moist mucous membranes. NECK: Normal inspection. RESP: No respiratory distress, CTAB. CVS: Regular rate and rhythm, no murmur, no gallop. ABD: Soft and nontender, no guarding or rebound, nondistended. SKIN: Color normal, no rash, warm, dry, intact. EXTREMITIES: Normal appearance, no pedal edema. NEURO: Alert and answering questions appropriately. PSYCH: Normal affect. Const Vital Signs: 01/31/24 20:05 01/31/24 20:28 Temperature 98.1 F Temperature Source Oral Pulse Rate 86 Respiratory Rate 16 Respiratory Effort Normal Respiratory Pattern Normal Blood Pressure 176/111 H Blood Pressure Mean 132 Pulse Ox 98 Oxygen Delivery Method Room Air <Dr. Jason Gomez DO - Last Filed: 01/31/24 21:18> Physical Exam Const Vital Signs: 01/31/24 20:05 01/31/24 20:28 Temperature 98.1 F Temperature Source Oral Pulse Rate 86 Respiratory Rate 16 Respiratory Effort Normal Respiratory Pattern Normal Blood Pressure 176/111 H Blood Pressure Mean 132 Pulse Ox 98 Oxygen Delivery Method Room Air MDM <Amarilis Doran PA - Last Filed: 01/31/24 21:20> [facility] MDM Narrative Medical decision making narrative: Patient thinks he swallowed the metal part of the pop can. PA and lateral of the chest was obtained which showed no foreign body so additional x-rays of the soft tissue neck and KUB were obtained. There is no foreign body seen. This point patient is asymptomatic and is tolerating p.o. intake and can be discharged home. He was told of his findings and return precautions were discussed. He was discharged in stable condition. Radiography Diagnostic Testing: Clinical Impression(s) from Imaging Studies Chest X-Ray 01/31/24 20:30 IMPRESSION: 1. No foreign body identified. 2. Findings consistent with ankylosing spondylitis. Electronically Signed: Justin VHans Klein DO at 21:02 EST , KUB X-Ray 01/31/24 20:45 IMPRESSION: 1. No foreign body is identified. 2. Ankylosing spondylitis. Electronically Signed: Justintrell Klein DO at 21:08 EST , Soft Tissue Neck X-Ray 01/31/24 20:45 IMPRESSION: 1. No evidence of foreign body identified in the [id number]. 2. Evidence of ankylosing spondylitis. Electronically Signed: Justin Klein at 21:08 EST , <Dr. Jason Gomez, DO - Last Filed: 01/31/24 21:18> MDM Radiography Diagnostic Testing: Clinical Impression(s) from Imaging Studies Chest X-Ray 01/31/24 20:30 IMPRESSION: 1. No foreign body identified. 2. Findings consistent with ankylosing spondylitis. Electronically Signed: Justin Klein at 21:02 EST , KUB X-Ray 01/31/24 20:45 IMPRESSION: 1. No foreign body is identified. 2. Ankylosing spondylitis. Electronically Signed: Justin Klein at 21:08 EST , Soft Tissue Neck X-Ray 01/31/24 20:45 IMPRESSION: 1. No evidence of foreign body identified in the [id number]. 2. Evidence of ankylosing spondylitis. Electronically Signed: Justin KleinDO at 21:08 EST , Treatment and Re-Evaluation :: I have personally performed a face to face assessment of the patient and have reviewed the CHRIS Note. I performed a substantive portion of the visit including all aspects of the following. My gil findings include: History: Patient presents with possible foreign body ingestion. Patient states that the top of a soda can came off of his can and he swallowed it. Patient states it felt like something was stuck in his throat. Patient states his pain is worse with swallowing. Patient states his pain feels like a pressure like something is stuck. Patient states it is over the lower neck area. Patient states this occurred approximately 35 minutes prior to arrival. Exam: Vital signs are stable. Patient is afebrile. Patient is in no acute distress. Oral mucosa is pink and moist. Neck is supple. Trachea is midline. There is no JVD. Heart was regular rate and rhythm. Lungs are clear and equal bilaterally. Abdomen is soft. Bowel sounds are normal. There is no tenderness. Cranial nerves II through XII are intact. There are no focal motor or sensory deficits noted. Medical Decision Making: Differential diagnosis includes swallowed foreign body and esophageal abrasion. PA and lateral x-ray of the chest will be obtained to assess for metallic foreign body. X-ray of the soft tissue neck will be obtained to assess for metallic foreign body. KUB will be obtained to assess for metallic foreign body. PA and lateral chest x-ray was obtained. There are 2 views. On my independent interpretation, there is no radiopaque foreign body. There is no acute cardiopulmonary process. Radiologist also interpreted the x-rays and agrees. X-rays of the soft tissue neck were obtained. There are 2 views. On my independent interpretation, there is no radiopaque foreign body. There is no free air. There is no soft tissue swelling. Radiologist also interpreted the x-rays and agrees. X-rays of the abdomen were obtained. There are 2 views. On my independent interpretation, there is no radiopaque foreign body. There is no free air. There is no evidence of obstruction. Radiologist also interpreted the x-rays and agrees. Patient was advised of his findings. Patient was instructed to follow-up with his primary care physician in 5 to 7 days. Patient understood and was agreeable with the plan. All questions were answered. Discharge Plan Triage Chief Complaint: Foreign Body ED Midlevel Provider: Amarilis Doran ED Provider: Jason Gomez Dx/Rx/DC Orders Clinical Impression: Foreign body, swallowed Instructions: ED Swallowed Foreign Body (Adult) Prescriptions: No Action mesalamine 1.2 GM tablet 1.2 g PO BID Patient Comments: difluprednate 5 ML drops 1 drp LEFT EYE DAILY Patient Comments: 1 drop in left eye every other day infliximab [Remicade] 100 mg recon soln IV .q6w Primary Care Provider: Amalia Wu Referrals: Amalia Wu DO [Primary Care Provider] - Print Language: Portuguese Disposition Disposition: Home, Self Care
--- NOTE | 2024-01-31 20:30 | RAD_ITS ---
EXAM: XR CHEST, 2 VIEWS CLINICAL INDICATION: swallowed foreign body TECHNIQUE: Frontal and lateral views of the chest. COMPARISON: 11/28/2015 as well as neck and abdomen radiograph, 01/31/2024. FINDINGS: LUNGS AND PLEURAL SPACES: No significant abnormality. No consolidation or edema. No pneumothorax. No effusion. HEART: No significant abnormality. Cardiac silhouette not enlarged. MEDIASTINUM: Central airways and mediastinal contour are unremarkable. BONES/JOINTS: Findings consistent with ankylosing spondylitis. Diffuse enthesopathic/annular bridging of the vertebrae. No acute fracture. SOFT TISSUES: No significant abnormality. RAD/Chest PA and Lateral IMPRESSION: 1. No foreign body identified. 2. Findings consistent with ankylosing spondylitis. Electronically Signed: Justin Klein DO at 21:02 EST ,
--- NOTE | 2024-01-31 20:45 | RAD_ITS ---
EXAM: XR ABDOMEN, 1 VIEW CLINICAL INDICATION: Swallowed foreign body TECHNIQUE: Frontal supine view of the abdomen/pelvis. COMPARISON: Chest radiograph on the same date. FINDINGS: GASTROINTESTINAL TRACT: No significant abnormality. Non-obstructive. No bowel or stomach distention. ORGANS: Normal as visualized. No organomegaly. No abnormal calcifications. BONES/JOINTS: Ankylosis of spinous processes and bridging enthesophytes are present. Asymmetric bilateral SI joint ankylosis to a greater extent on the right. SOFT TISSUES: No acute pathology. RAD/Abdomen Single View IMPRESSION: 1. No foreign body is identified. 2. Ankylosing spondylitis. Electronically Signed: Justin Klein DO at 21:08 EST ,
--- NOTE | 2024-01-31 20:45 | RAD_ITS ---
EXAM: XR SOFT TISSUE NECK CLINICAL INDICATION: Swallowed foreign body TECHNIQUE: Frontal and lateral views of the soft tissues of the neck. COMPARISON: Chest radiograph on the same date. FINDINGS: AIRWAY: No significant abnormality. Grossly patent. BONES/JOINTS: Ankylosis of multiple cervical segments and additional degenerative changes. SOFT TISSUES: No significant abnormality. No pathologic thickening or enlargement of the epiglottis. No evidence of foreign body identified in the [id number]. RAD/Neck for Soft Tissue IMPRESSION: 1. No evidence of foreign body identified in the [id number]. 2. Evidence of ankylosing spondylitis. Electronically Signed: Justin Klein DO at 21:08 EST ,
[2024-01-31 21:26] VITALS: BP 163/114; PULSE 90; RESP 20; TEMP 36.6; O2SAT 98
== END 2024-01-31 21:27 | disposition home or self-care (01) ==
PROVIDERS: Emergency Provider Emergency Medicine; PCP Internal Medicine; Referring Provider Emergency Medicine; Visit Provider Emergency Medicine
DX: T18.9XXA Foreign body of alimentary tract, part unspecified, initial encounter (principal); W44.D9XA Other magnetic metal objects entering into or through a natural orifice, initial encounter
CPT/HCPCS: 70360; 71046; 74018; 99282

== ENCOUNTER → 2024-03-01 | Outpatient (CLI) | payer OTHER, SELFPAY ==
[2024-03-01 18:29] LABS: Ferritin 189 ng/mL (26-388)
[2024-03-03 14:09] LABS: ANTINUCLEAR ANTIBODIES DIRECT Positive (Negative); Anti-Mitochondrial AB <20.0 Units (0.0-20.0); Anti-Smooth Muscle ABS 10 Units (0-19)
== END | disposition home or self-care (01) ==
PROVIDERS: PCP Internal Medicine; Referring Provider Internal Medicine Gastroenterology; Visit Provider Internal Medicine Gastroenterology
DX: K75.9 Inflammatory liver disease, unspecified (principal)
CPT/HCPCS: 36415; 82728; 83516; 86038

== ENCOUNTER → 2024-03-23 | Outpatient (CLI) | payer OTHER, SELFPAY ==
[2024-03-23 10:33] LABS: Bacteria 0 SEEN /hpf (None Seen); Mucous, Urine 0 SEEN /hpf (<or=2+); Red Blood Cells-Urine 0 SEEN /hpf (0-5); Squamous Epithelial Cells - UA 0 SEEN /hpf (0-5); White Blood Cells 0 SEEN /hpf (0-5)
[2024-03-23 12:09] LABS: Color, Urine Yellow (Yellow); Glucose, Dipstick Normal (Normal); Ketone-Dipstick Negative (Negative); Leukocyte Esterase-Dipstick Negative /ul (Negative); Nitrite-Dipstick Negative (Negative); Occult Blood-Urine Negative /ul (Negative); Protein-Dipstick 30 mg/dl (Negative); Urine Bilirubin Dipstick Negative (Negative); Urine Clarity Clear (Clear); Urine Urobilinogen Normal (Normal); Urine pH 6.5 (5.0 - 8.0)
[2024-03-23 12:10] LABS: Absolute Lymphocyte Count 1.94 X10^3/uL (0.83-4.51); Absolute Neutrophil Count 5.2 X10^3/uL (2.0-7.7); Basophil# 0.07 X10^3/uL; Basophil% 0.9 % (0-1); Eosinophil# 0.18 X10^3/uL; Eosinophils% 2.2 % (0-5); Hematocrit 48.8 % (40-54); Hemoglobin 16.4 g/dL (13.0-16.5); Lymphocyte # 1.94 X10^3/ul (0.83-4.51); Lymphocyte % 24.1 % (19-41); Mean Corp Hgb Conc 33.6 g/dL (32-36); Mean Corpuscular Hgb 29.2 pg (27.0-32.0); Mean Corpuscular Volume 86.8 fL (80-94); Mean Platelet Vol. 11.8 fl (6.2-12.0); Monocyte# 0.67 X10^3/uL; Monocyte% 8.3 % (0-10); NRBC Flagged by Analyzer 0 % (0-5); Neutrophil # 5.15 X10^3/uL (2.7-7.7); Neutrophil % 63.9 % (47-70); Platelet Count 208 K/mm3 (150-450); RBC Distribution Width CV 12.7 % (11.6-14.6); RBC Distribution Width SD 39.8 fl (35.1-43.9); Red Blood Count 5.62 M/mm3 (4.6-6.2); White Blood Count 8.1 K/mm3 (4.4-11.0)
[2024-03-23 12:32] LABS: ALB/GLOB Ratio 0.9 RATIO (0.9-2.4); AST(SGOT) 52 U/L (15-37); Alanine Aminotransfer ALT/SGPT 155 U/L (16-61); Albumin, Serum 3.7 g/dL (3.2-5.0); Alkaline Phosphatase 80 U/L (45-117); Anion Gap 6 (5-15); BUN 13 mg/dL (7-18); BUN/Creat Ratio 14.9 RATIO (10-20); Calcium,Total 8.8 mg/dL (8.5-10.1); Chloride 104 mmol/L (98-107); Cholesterol 116 mg/dL (200); Creatinine, Serum 0.87 mg/dL (0.70-1.30); EST Glomerular Filtration Rate 100 mL/min (>60); Est Glom Filt Rate - Afr Amer 121 mL/min (>60); Globulin 4.1 g/dL (2.2-4.2); Glucose 103 mg/dL (74-106); High Density Lipoprotein 60 mg/dL; Magnesium 2.1 mg/dL (1.6-2.6); Potassium 3.8 mmol/L (3.5-5.1); Protein, Total 7.8 g/dL (6.4-8.2); Sodium Level 135 mmol/L (136-145); T4 Free Direct 1.27 ng/dL (0.76-1.46); Triglycerides 77 mg/dL; Very Low Density Lipoprotein 15 mg/dL (5-40)
[2024-03-25 07:07] LABS: Thyroid Peroxidase AB 12 IU/mL (0-34); Thyroid Stim Immunoglob <0.10 IU/L (0.00-0.55)
[2024-03-28 15:43] LABS: Hemoglobin A1c 5.3 % (3.8-5.6)
== END | disposition home or self-care (01) ==
LOC: MFPLAB 10:28
PROVIDERS: PCP Internal Medicine; Referring Provider Family Medicine; Visit Provider Family Medicine
DX: I10 Essential (primary) hypertension (principal); E01.0 Iodine-deficiency related diffuse (endemic) goiter
CPT/HCPCS: 80053; 80061; 81001; 83036; 83735; 84439; 84443; 84445; 85025; 86376

== ENCOUNTER → 2024-03-27 | Outpatient (CLI) | payer OTHER, SELFPAY ==
--- NOTE | 2024-03-27 14:01 | US_ITS ---
STUDY: THYROID ULTRASOUND REASON FOR EXAM: Male, 43 years old. THYROMEGALY felt by doctor TECHNIQUE: Ultrasound evaluation of the thyroid was performed with real-time and static alexandra-scale imaging. COMPARISON: None. FINDINGS: RIGHT LOBE: The right lobe of the thyroid gland measures 5.4 x 2.0 x 1.8 cm. There is a homogeneous echotexture. There are no demonstrated solid, cystic or complex lesions. LEFT LOBE: The left lobe of the thyroid gland measures 4.9 x 1.9 x 1.8 cm. There is a homogeneous echotexture. There are no demonstrated solid, cystic or complex lesions. ISTHMUS: The isthmus measures 4 mm thick. . The regional lymph nodes are normal. US/Thyroid IMPRESSION: Normal ultrasound examination of the thyroid. Electronically Signed: Quique Oro MD at 13:06 EST ,
== END | disposition home or self-care (01) ==
LOC: US 14:00
PROVIDERS: PCP Family Medicine; Referring Provider Family Medicine; Visit Provider Family Medicine
DX: E01.0 Iodine-deficiency related diffuse (endemic) goiter (principal)
CPT/HCPCS: 76536

== ENCOUNTER → 2024-04-27 | Outpatient (CLI) | payer OTHER, SELFPAY ==
[2024-04-27 13:00] LABS: AST(SGOT) 40 U/L (15-37); Alanine Aminotransfer ALT/SGPT 124 U/L (16-61); Alkaline Phosphatase 93 U/L (45-117); Anion Gap 6 (5-15); BUN 19 mg/dL (7-18); BUN/Creat Ratio 19.7 RATIO (10-20); Calcium,Total 9.1 mg/dL (8.5-10.1); Chloride 106 mmol/L (98-107); Creatinine, Serum 0.96 mg/dL (0.70-1.30); EST Glomerular Filtration Rate 89 mL/min (>60); Est Glom Filt Rate - Afr Amer 108 mL/min (>60); Glucose 104 mg/dL (74-106); Potassium 3.8 mmol/L (3.5-5.1); Sodium Level 138 mmol/L (136-145)
== END | disposition home or self-care (01) ==
LOC: MTLAB 10:02
PROVIDERS: PCP Family Medicine; Referring Provider Family Medicine; Visit Provider Family Medicine
DX: I10 Essential (primary) hypertension (principal)
CPT/HCPCS: 36415; 80053

== ENCOUNTER → 2024-05-11 | Outpatient (CLI) | payer OTHER, SELFPAY ==
--- NOTE | 2024-05-11 12:24 | US_ITS ---
EXAM: US Retroperitoneal Limited, Renal CLINICAL INDICATION: TECHNIQUE: Real-time limited ultrasound of the retroperitoneum with image documentation. COMPARISON: No relevant prior studies available. FINDINGS: RIGHT KIDNEY: Right renal cysts measuring up to 1.9 cm. No stones. No hydronephrosis. The right kidney measures 13.5 x 5.7 x 6.7 cm. LEFT KIDNEY: Unremarkable. No stones. No hydronephrosis. The left kidney measures 30.0 x 5.1 x 6.4 cm. OTHER FINDINGS: Prevoid volume 335 cc. Postvoid volume of 166 cc. US/Kidney and Bladder IMPRESSION: Urinary retention. Simple right renal cyst. Reading [facility]
== END | disposition home or self-care (01) ==
PROVIDERS: PCP Family Medicine; Referring Provider Family Medicine; Visit Provider Family Medicine
DX: I10 Essential (primary) hypertension (principal)
CPT/HCPCS: 76770

== ENCOUNTER → 2024-06-02 | Outpatient (CLI) | payer OTHER, SELFPAY ==
--- NOTE | 2024-06-02 08:52 | RDU_ITS ---
Reason For Study Reason For Study: HTN Right Renal Artery Left Renal Artery Right renal artery ostium 83/27 RSV/EDV. Left renal artery ostium 67/21 PSV/EDV. Right renal artery proximal 92/25 Left renal artery proximal PSV/EDV PSV/EDV. 122/32 . Right renal artery mid 178/57 PSV/EDV. Left renal artery mid 181/45 PSV/EDV . Right renal artery distal 93/24 PSV/EDV. Left renal artery distal 66/23 PSV/EDV. Right Renal Parenchyma Left Renal Parenchyma Upper Pole Medula 51/17 PSV/EDV. Left upper pole medulla 51/17 PSV/EDV . Right upper pole medulla EDR 0.33 . Left upper pole medulla EDR 0.33 . Right upper pole medulla R.I. 0.66 . Left upper pole medulla R.I. 0.68 . Upper Maurice Cortx 27/12 PSV/EDV. UP Cortex 21/8 PSV/EDV. Right upper pole cortex EDR 0.44 . Left upper pole cortex EDR 0.38 . Right upper pole cortex R.I. 0.57 . Left upper pole cortex R.I. 0.60 . Right lower Pole medulla 33/12 PSV/EDV . Left lower Pole medulla 37/12 PSV/EDV . Right lower pole medulla EDR 0.36 . Left lower pole medulla EDR 0.32 . Right lower pole medulla R.I. 0.64 . Left lower pole medulla R.I. 0.67 . Lower Pole Cortex 26/9 PSV/EDV. Lower Pole Cortx 21/8 PSV/EDV. Right lower pole cortex EDR 0.35 . Left lower pole cortex EDR 0.38 . Right lower pole cortex R.I. 0.65 . Left lower pole cortex R.I. 0.60 . Right Renal Hilar Left Renal Hilar Right Hilar avg 108/35 PSV/EDV. LT Hilar avg 60/23 PSV/EDV . Right hilar acceleration time 50 m/sec. Left hilar acceleration time 40 m/sec. Right Renal Dimensions Left Renal Dimensions Right kidney size 13.0 cm . Left kidney size 12.77 cm . Right cortical dimension 1.93 cm . Left cortical dimension 1.95 cm . Aorta Proximal abdominal aorta 1.81cm x 2.06 cm . Proximal abdominal aorta peak systolic velocity is 109 cm/sec . Distal abdominal aorta 1.77cm x 1.97 cm . Distal abdominal aorta peak systolic velocity is 55 cm/sec . VL/Renal Artery Duplex Ultrasound Interpretation Summary Right renal artery patent with normal velocities and no evidence of stenosis. Left renal artery patent with normal velocities and no evidence of stenosis. Right renal vein patent. Left renal vein patent. Right kidney normal in size. Left kidney normal in size. Ordering Physician: Edmund Awan Referring Physician: Edmund Awan Performed By: Lola Sue, MARLENI, RVT
== END | disposition home or self-care (01) ==
LOC: CVS 08:52
PROVIDERS: PCP Family Medicine; Referring Provider Family Medicine; Visit Provider Family Medicine
DX: I10 Essential (primary) hypertension (principal)
CPT/HCPCS: 93975

== ENCOUNTER → 2024-08-10 | Outpatient (CLI) | payer OTHER, SELFPAY ==
[2024-08-10 11:37] LABS: Bacteria 0 SEEN /hpf (None Seen); Mucous, Urine 0 SEEN /hpf (<or=2+); Red Blood Cells-Urine 0 SEEN /hpf (0-5); Squamous Epithelial Cells - UA 0 SEEN /hpf (0-5); White Blood Cells 0 SEEN /hpf (0-5)
[2024-08-10 12:32] LABS: Absolute Neutrophil Count 7.2 X10^3/uL (2.0-7.7); Basophil# 0.07 X10^3/uL; Basophil% 0.7 % (0-1); Eosinophil# 0.18 X10^3/uL; Eosinophils% 1.7 % (0-5); Hematocrit 48.5 % (40-54); Hemoglobin 16.6 g/dL (13.0-16.5); Lymphocyte % 16.5 % (19-41); Mean Corp Hgb Conc 34.2 g/dL (32-36); Mean Corpuscular Hgb 30.3 pg (27.0-32.0); Mean Corpuscular Volume 88.5 fL (80-94); Monocyte# 1.12 X10^3/uL; Monocyte% 10.8 % (0-10); NRBC Flagged by Analyzer 0 % (0-5); Neutrophil # 7.22 X10^3/uL (2.7-7.7); Neutrophil % 69.9 % (47-70); Platelet Count 258 K/mm3 (150-450); RBC Distribution Width CV 12.9 % (11.6-14.6); RBC Distribution Width SD 40.8 fl (35.1-43.9); Red Blood Count 5.48 M/mm3 (4.6-6.2); White Blood Count 10.3 K/mm3 (4.4-11.0)
[2024-08-10 12:45] LABS: Color, Urine Yellow (Yellow); Glucose, Dipstick Normal (Normal); Ketone-Dipstick Negative (Negative); Leukocyte Esterase-Dipstick Negative /ul (Negative); Nitrite-Dipstick Negative (Negative); Occult Blood-Urine Negative /ul (Negative); Protein-Dipstick 15 mg/dl (Negative); Specific Gravity, Urine 1.015 (1.002-1.030); Urine Bilirubin Dipstick Negative (Negative); Urine Clarity Clear (Clear); Urine Urobilinogen Normal (Normal)
[2024-08-10 13:17] LABS: ALB/GLOB Ratio 1.3 RATIO (0.9-2.4); AST(SGOT) 43 U/L (<=37); Alanine Aminotransfer ALT/SGPT 82 U/L (<=46); Albumin, Serum 4.5 g/dL (3.5-5.0); Alkaline Phosphatase 91 U/L (40-129); Anion Gap 11 (5-15); BUN 16 mg/dL (4-19); BUN/Creat Ratio 15.2 RATIO (10-20); Calcium,Total 9.8 mg/dL (7.6-11.0); Carbon Dioxide 27.5 mmol/L (21.0-32.0); Chloride 102 mmol/L (98-108); Cholesterol 105 mg/dL (<=200); Creatinine, Serum 1.05 mg/dL (0.70-1.20); EST Glomerular Filtration Rate 89 (>60); Globulin 3.6 g/dL (2.2-4.2); Glucose 93 mg/dL (70-99); High Density Lipoprotein 51 mg/dL; Low Density Lipoprotein Calc. 40 mg/dL; PSA,Total - Annual Screen 0.56 ng/mL (0.02-4.00); Potassium 4.7 mmol/L (3.3-5.1); Protein, Total 8.1 g/dL (5.9-8.4); Sodium Level 140 mmol/L (133-145); Total Bilirubin 0.77 mg/dL (0.00-1.30); Triglycerides 70 mg/dL; Very Low Density Lipoprotein 14 mg/dL (5-40); cholesterol:hdl ratio screen 2.04
== END | disposition home or self-care (01) ==
LOC: MFPLAB 11:12
PROVIDERS: PCP Family Medicine; Referring Provider Family Medicine; Visit Provider Family Medicine
DX: E03.8 Other specified hypothyroidism (principal); I10 Essential (primary) hypertension; N40.1 Benign prostatic hyperplasia with lower urinary tract symptoms
CPT/HCPCS: 36415; 80053; 80061; 81001; 84153; 84439; 84443; 85025; G0103

== ENCOUNTER → 2024-08-15 | Outpatient (CLI) | payer OTHER, SELFPAY ==
[2024-08-15 12:42] LABS: CPK Total, Creatine Kinase 108 U/L (24-195); Ferritin 190 ng/mL (37-417); HIV Nonreactive (Nonreactive)
[2024-08-15 13:04] LABS: Iron 112 ug/dL (65-175); Iron Binding Capacity,Total 318 ug/dL (250-450); Iron Binding Capacity,Unsat 206 ug/dL (228-428)
[2024-08-18 14:08] LABS: Anti-Centromere B Ab <0.2 AI (0.0-0.9); Anti-Chromatin <0.2 AI (0.0-0.9); Anti-Jo <0.2 AI (0.0-0.9); Anti-Mitochondrial AB <20.0 Units (0.0-20.0); Anti-Scleroderma-70 AB <0.2 AI (0.0-0.9); Anti-dsDNA Ab <1 IU/mL (0-9); Clam <0.10 kU/L (Class 0); Codfish <0.10 kU/L (Class 0); Corn <0.10 kU/L (Class 0); Egg, White <0.10 kU/L (Class 0); Milk (Cow) <0.10 kU/L (Class 0); Peanut <0.10 kU/L (Class 0); RNP Ab <0.2 AI (0.0-0.9); SCALLOP <0.10 kU/L (Class 0); SESAME SEED <0.10 kU/L (Class 0); SJOGREN'S Anti-SS-A test 1.6 AI (0.0-0.9); SJOGREN'S Anti-SS-B test < 0.2 AI (0.0-0.9); Shrimp <0.10 kU/L (Class 0); Smith Ab <0.2 AI (0.0-0.9); Soybean <0.10 kU/L (Class 0); Walnut, (Food) <0.10 kU/L (Class 0); Wheat <0.10 kU/L (Class 0)
== END | disposition home or self-care (01) ==
LOC: LAB 10:33
PROVIDERS: PCP Family Medicine; Referring Provider Internal Medicine Gastroenterology; Visit Provider Internal Medicine Gastroenterology
DX: K75.9 Inflammatory liver disease, unspecified (principal); E66.9 Obesity, unspecified
CPT/HCPCS: 36415; 80074; 82085; 82390; 82525; 82550; 82728; 82784; 83010; 83516; 83540; 83550; 84165; 84402; 84403; 86003; 86037; 86225; 86235; 86334; 86480; 86703

== ENCOUNTER → 2024-08-30 | Outpatient (CLI) | payer OTHER, SELFPAY ==
[2024-08-30] VITALS (14 sets, daily range): BP systolic 115–152; BP diastolic 64–95; PULSE 82–95; RESP 14–18; TEMP 36.5; O2SAT 93–97; BMI 34.0
--- NOTE | 2024-08-30 09:01 | CT_ITS ---
PROCEDURE: LIVER BIOPSY UNDER CT GUIDANCE 08/30/2024 REASON FOR EXAM: ELEVATED LIVER ENZYMES FATTY LIVER. TECHNIQUE: Contiguous axial scans of 2.5 mm slice thicknesses obtained through the liver. One or more dose reduction techniques were used (e.g., automated exposure control, adjustment of mA and/or kv according to patient size, use of iterative reconstruction technique). RADIATION DOSE SUMMARY: DLP: 1153.15 mGycm COMPARISON: Ultrasound dated 05/11/2024 and 01/14/2024. KUB dated 01/31/2024. FINDINGS: The biopsy procedure was explained to the patient. Informed consent was obtained and the patient was given the opportunity to ask questions concerning the procedure. Patient was placed on the gantry table in a supine position. The marker grid was placed on the right hemiabdomen and scanning was initiated. The site of biopsy was localized as usual and documented. Sterile preparation of the skin was performed in the usual fashion. Local anesthesia was accomplished with lidocaine 2%. An 18 gauge, 10 cm in length, coaxial CorVocet biopsy set was utilized to perform the biopsies. A total of 3 core biopsy specimens were obtained and preserved in formalin. Adequate specimens were documented. Following the final biopsy the coaxial needle was removed and firm pressure was applied to the biopsy site. Sterile dressing was applied as usual. Post biopsy imaging shows no signs of hemorrhage or other abnormalities. SEDATION: 3 MG of Versed intravenously. 50 MCG of fentanyl intravenously. The patient's vital signs were monitored by telemetry during the procedure. CT/Biopsy/Inj or Needle Placement IMPRESSION: 1. SUCCESSFUL RANDOM DIAGNOSTIC LIVER BIOPSY UNDER CT GUIDANCE. PATIENT TOLERATED THE PROCEDURE WELL. THANK YOU FOR THIS REFERRAL. Reading Location: [place] [id number]
[2024-08-30 09:11] LABS: Absolute Lymphocyte Count 2.07 X10^3/uL (0.83-4.51); Absolute Neutrophil Count 4.4 X10^3/uL (2.0-7.7); Basophil# 0.07 X10^3/uL; Eosinophil# 0.17 X10^3/uL; Eosinophils% 2.3 % (0-5); Hematocrit 47.6 % (40-54); Hemoglobin 16.3 g/dL (13.0-16.5); Lymphocyte # 2.07 X10^3/ul (0.83-4.51); Lymphocyte % 28.1 % (19-41); Mean Corp Hgb Conc 34.2 g/dL (32-36); Mean Corpuscular Hgb 29.1 pg (27.0-32.0); Mean Corpuscular Volume 84.8 fL (80-94); Mean Platelet Vol. 11.3 fl (6.2-12.0); Monocyte% 8.2 % (0-10); NRBC Flagged by Analyzer 0 % (0-5); Neutrophil # 4.41 X10^3/uL (2.7-7.7); Neutrophil % 59.9 % (47-70); Platelet Count 239 K/mm3 (150-450); RBC Distribution Width CV 12.4 % (11.6-14.6); RBC Distribution Width SD 37.7 fl (35.1-43.9); Red Blood Count 5.61 M/mm3 (4.6-6.2); White Blood Count 7.4 K/mm3 (4.4-11.0)
[2024-08-30 09:19] LABS: International Normalized Ratio 0.9; Prothrombin Time (Protime)PT. 12.5 SECONDS (11.7-14.9)
[2024-08-30 09:20] LABS: Partial Thromboplast Time 25.3 Seconds (24.1-36.2)
[2024-08-30] MEDS: 0.9% Normal Saline (250mL Bag) 250 ML 15 ML IV (09:50)
[2024-08-30] MEDS: Midazolam 2 MG/2 ML Syringe IV ×3 (09:52→10:04)
[2024-08-30] MEDS: fentaNYL 100 MCG/2 ML Ampul IV (09:53)
[2024-08-30] MEDS: Lidocaine 2% (20 ml mdv) 20 ML Vial INFILT (10:07)
[2024-08-30 10:44] LABS: Pathology Sent to OSU SEE PATHOLOGY REPORT
== END | disposition home or self-care (01) ==
LOC: CT 08:48
PROVIDERS: Radiology Diagnostic Radiology; PCP Family Medicine; Referring Provider Internal Medicine Gastroenterology; Visit Provider Internal Medicine Gastroenterology
DX: Z01.818 Encounter for other preprocedural examination (principal); K75.9 Inflammatory liver disease, unspecified; R74.8 Abnormal levels of other serum enzymes; E66.9 Obesity, unspecified
CPT/HCPCS: 47000; 36415; 77012; 85025; 85610; 85730; 99156; A4216

== ENCOUNTER → 2024-09-20 | Outpatient (CLI) | payer OTHER, SELFPAY ==
--- NOTE | 2024-09-20 07:28 | MRI_ITS ---
PROCEDURE: MRCP ABDOMEN WITHOUT CONTRAST, 09/20/2024 REASON FOR EXAM: HEPATITIS TECHNIQUE: Multiplanar multisequence MRI abdomen was performed without IV contrast. MRCP was performed including generation of MIP reconstructions and 3D reformats. COMPARISON: Neither the report nor images from an ultrasound dated 01/14/2024 could be retrieved at the time of dictation. FINDINGS: Variable overall mild motion limitation. Note that the exam is optimized for evaluation of the gallbladder and biliary tree rather than the remaining abdominal viscera. Note also that sensitivity is limited in the absence of IV contrast. Liver: Grossly unremarkable on limited noncontrast evaluation. Gallbladder: Suspected 3 mm polyp along the anterior fundus. No dependent filling defects to suggest cholelithiasis. No wall thickening or convincing adjacent inflammation. Biliary tree: Unremarkable. Nondilated CBD measures 4 mm. No definite choledocholithiasis. Pancreatic ducts: Unremarkable. Other: Tiny presumed renal cyst on the LEFT incompletely characterized in the absence of IV contrast. Likely cortical scarring along the anterior RIGHT lower renal pole. Lumbar spondylosis. MRI/MRCP Abdomen without Contrast IMPRESSION: 1. No biliary dilatation, cholelithiasis, or definite choledocholithiasis ident ified. 2. Suspected 3 mm gallbladder polyp, which would be best evaluated sonographica lly. 3. Additional description as above. Reading Location: [id number]
--- OUTSIDE RECORDS SUMMARY | 2024-09-20 07:28 | XMS RPT_ITS | CCD ---
Author Organization [facility] Care Team Providers Care Customer Consulting Manager Name Role Phone DEX, NIKKI Unavailable Unavailable DEX, NIKKI Unavailable Unavailable DEX, NIKKI Unavailable Unavailable ART GROSS (FOOT CASTER) Unavailable Unavailab le ART GROSS (FOOT CASTER) Unavailable Unavailab le Fast, Amalia A Unavailable Manchak, Alka Unavailable Unavailable Unavailable Unavailable Manchak, Alka Unavailable Unavailable Fast DO, Amalia A Unavailable Manchak ELECTRONIC PUBLISHER, Alka Unavailable Unavailable Unavailable Unavailable Fast DO, Amalia A Attending Unavailable Fast DO, Amalia A Consulting Unavailable Fast DO, Amalia A Unavailable Dr. Amalia Wu DO Primary Care Provider [phone] Dr. Amari Serra MD Attending Provider Dr. Amari Serra MD Referring Provider Dr. Edmund Awan MD Attending Provider Dr. Edmund Awan MD Referring Provider [phone] Dr. Edmund Awan MD Primary Care Provider Dr. Jason Krishna MD Attending Provider Dr. Edmund Awan MD Primary Care Provider Dr. Edmund Awan MD Attending Provider Dr. Edmund Awan MD Referring Provider Dr. Agusto North DO Attending Provider Can DO, Dr. Liz Referring Provider Lv DOWNS, Dr. Edmund Hatfield Primary Care Provider [phone] Lv DOWNS, Dr. Edmund Hatfield Attending Provider Lv DOWNS, Dr. Edmund Hatfield Referring Provider [phone] James DOWNS, Dr. Morales Other Provider Unava onelia Awan MD, Dr. Edmund Hatfield Primary Care Provider Lv DOWNS, Dr. Edmund Hatfield Attending Provider Lv DOWNS, Dr. Edmund Hatfield Referring Provider [phone] Edmund Awan Primary Care Unavailable Friend, Agusto Referring Unavailable Friend, Agusto Attending Unavailable Fast, Amalia Primary Care Unavailable Jabour, Vincent Referring Unavailable Jabour, Vincent Attending Unavailable Fast, Amalia Primary Care Unavailable Jabour, Vincent Referring Unavailable Jabour, Amari Attending Unavailable Schinner, Edmund E Referring Unavailable Jason Krishna Attending Unavailable Schinner, Edmund E Primary Care Unavailable Schinner, Edmund E Primary Care Unavailable Friend, Agusto Attending Unavailable Schinner, Edmund E Referring Unavailable Schinner, Edmund E Referring Unavailable Fast, Amalia Primary Care Unavailable Schinner, Edmund E Attending Unavailable Schinner, Edmund E Referring Unavailable Schinner, Edmund E Attending Unavailable Schinner, Edmund E Primary Care Unavailable Schinner, Edmund E Referring Unavailable Schinner, Edmund E Attending Unavailable Schinner, Edmund E Primary Care Unavailable Fast, Amalia Primary Care Unavailable Schwiger, Jason Referring Unavailable Schwiger Jason Attending Unavailable Schinner, Edmund E Referring Unavailable Schinner, Edmund E Attending Unavailable Schinner, Edmund E Primary Care Unavailable Friend, Agusto Attending Unavailable Schinner, Edmund E Primary Care Unavailable Schinner, Edmund E Referring Unavailable Schinner, Edmund E Primary Care Unavailable Friend, Agusto Referring Unavailable Friend, Agusto Attending Unavailable Schinner, Edmund E Primary Care Unavailable Friend, Agusto Referring Unavailable Friend, Agusto Attending Unavailable Andrew Ramirez Consulting Unavailable Schinner, Edmund E Referring Unavailable Schinner, Edmund E Attending Unavailable Schinner, Edmund E Primary Care Unavailable Schinner, Edmund E Primary Care Unavailable Edmund Awan Referring Unavailable Edmund Awan Attending Unavailable Allergies Allergy Classification Reported Allergen(s) Allergy Type Date of Onset Reaction(s) Facility (1 source) acetaminophen; Translations: [ACETAMINOPHEN] Drug Allergy 06-13-19 [facility] (1 source) aspirin; Translations: [ASPIRIN] Drug Allergy 06-13-19 [facility] (1 source) Cat; Translations: [CATS] Propensity to adverse reactions (disorder) 06-13-19 [facility] Repository (1 source) Contrast media; Translations: [CONTRAST DYE] Propensity to adverse reactions to drug (disorder) 06-30-19 [facility] (1 source) NSAIDs; Translations: [NSAIDS (NON-STEROIDAL ANTI-INFLAMMATORY DRUG)] Propensity to adverse reactions to drug (disorder) 06-13-19 [facility] (13 sources) Cat dander extract Drug Allergy [facility]prehen [facility] Work Phone: (13 sources) Iodinated Contrast; Translations: [Iodinated Contrast] allergy to substance [facility] Work Phone: Comment on above: hives (6 sources) Triiodobenzoic Acids Allergy to substance 01-31-20 [facility] (1 source) Iodinated Contrast Media Drug allergy (disorder) 08-31-19 [facility] Rep[facility] Medications Current Medications Medication Drug Class(es) Dates Sig (Normalized) Sig (Original) amLODIPine 10 mg oral tablet (2 sources) Dihydropyridine Calcium Channel Ángel Start: 08-31-19 25 take 1 tablet by mouth once daily Amlodipine 10 mg tablet Active 10 mg PO DAILY August 30, 2024 12:00am Difluprednate 5 ML drops (6 sources) Start: 05-02-19 21 take 5 mL into the eye(s) once daily Difluprednate 5 ML drops Active 1 NMA LEFT EYE DAILY May 02, 2020 1:00am hydroCHLOROthiazide 25 mg oral tablet (2 sources) Thiazide Diuretic Start: 08-31-19 25 take 1 tablet by mouth once daily Hydrochlorothiazide 25 mg tablet Active 25 mg PO DAILY August 30, 2024 12:00am Infliximab (Remicade) 100 mg recon soln (6 sources) Start: 01-31-20 Infliximab (Remicade) 100 mg recon soln Active 100 mg IV .q6w January 31, 2024 1:00am Start: 01-31-2024 Infliximab (Re micade) 100 mg recon soln Active IV .q6w January 31, 2024 1:00am mesalamine 1200 mg delayed release oral tablet (19 sources) Aminosalicylate Start: 11-28-2015 End: 11-14-2017 take 1 tablet by mouth twice daily Mesalamine 1.2 GM tablet Active 1.2 g PO TWICE A DAY November 28, 2015 12:00am metoprolol tartrate 25 mg oral tablet (2 sources) beta-Adrenergic Ángel Start: 08-30-2024 take 1 tablet by mouth twice daily Metoprolol Tartrate 25 mg tablet Active 25 mg PO TWICE A DAY August 30, 2024 12:00am Resmetirom (Rezdiffra) 100 mg tablet (2 sources) Start: 08-30-2024 take 1 tablet by mouth once daily Resmetirom (Rezdiffra) 100 mg tablet Active 100 mg PO DAILY August 30, 2024 12:00am tamsulosin hydrochloride 0.4 mg oral capsule (2 sources) alpha-Adrenergic Ángel Start: 08-30-2024 take 1 capsule by mouth at bedtime Tamsulosin 0.4 mg capsule Active 0.4 mg PO AT BEDTIME August 30, 2024 12:00am Vitamin E (5 sources) Start: 08-15-2024 vitamin E Active PO August 15, 2024 12:00am Completed/Discontinued Medications Medication Drug Class(es) Dates Sig (Normalized) Sig (Original) [id number] 200 actuat albuterol 0.09 mg/actuat metered dose inhaler (13 sources) beta2-Adrenergic Agonist Start: 10-15-2017 ProAir HFA 108 (90 Base) MCG/ACT Inhalation Aerosol Solution 2 (two) Puff puffs qid prn for 0 days Quantity: 1 {Inhalation} Refills: 3 Ordered: 15-Oct-2017 Fast DO, Amalia A Fast DO, Amalia A Start : 15-Oct-2017 Active Start: 10-15-2017 ProAir HFA 108 (90 Base) MCG/ACT Inhalation Aerosol Solution 2 (two) Puff puffs qid prn for 0 days Quantity: 1 {Inhalation} Refills: 3 Ordered: 15-Oct-2017 Fast DO, Amalia A Fast DO, Amalia A Start : 15-Oct-2017 Active cephalexin 500 mg oral capsule (6 sources) Cephalosporin Antibacterial Start: 05-03-2020 End: 05-08-2020 take 1 capsule by mouth every six hours Cephalexin 500 MG capsule Discontinued 500 mg PO EVERY 6 HOURS 20 May 03, 2020 1:00am May 07, 2020 1:00am May 08, 2020 1:03am difluprednate 0.5 mg/ml ophthalmic suspension (13 sources) Start: 10-15-2017 End: 11-14-2017 Durezol 0.05 % Ophthalmic Emulsion 1 (one) Metric Drop uad for 30 days Refills: 0 Ordered: 30-Nov-2017 DO, Amalia A Fast DO, Amalia A Start : 15-Oct-2017 End : 14-Nov-2017 Inactive Comments: [facility] Comment on above: [facility] doxycycline monohydrate 100 mg oral capsule (6 sources) Tetracycline-class Drug Start: 05-02-2020 End: 01-31-2024 take 1 capsule by mouth twice daily Doxycycline Monohydrate 100 MG capsule Discontinued 100 mg PO TWICE A DAY May 02, 2020 1:00am January 31, 2024 9:34pm Enbrel Mini 50 MG/ML Subcutaneous Solution Cartridge (3 sources) Start: 10-15-2017 End: 11-14-2017 inject 1 mL by subcutaneous injection every week Enbrel Mini 50 MG/ML Subcutaneous Solution Cartridge 1 (one) Milliliter once a week for 30 days Refills: 0 Ordered: 30-Nov-2017 Fast DO, Amalia A Fast DO, Amalia A Start : 15-Oct-2017 End : 14-Nov-2017 Inactive 1 ml etanercept 50 mg/ml prefilled syringe (16 sources) Tumor Necrosis Factor Ángel Start: 05-02-2020 End: 01-31-2024 Etanercept 50 MG/ML syringe Discontinued 50 mg SQ FR May 02, 2020 1:00am January 31, 2024 9:35pm Start: 10-15-2017 End: 11-14-2017 inject 1 mL by subcutaneous injection every week Enbrel Mini 50 MG/ML Subcutaneous Solution Cartridge 1 (one) Milliliter once a week for 30 days Refills: 0 Ordered: 30-Nov-2017 Fast DO, Amalia A Fast DO, Amalia A Start : 15-Oct-2017 End : 14-Nov-2017 Inactive Start: 10-15-2017 End: 11-14-2017 inject 1 mL by subcutaneous injection every week Enbrel Mini 50 MG/ML Subcutaneous Solution Cartridge 1 (one) Milliliter once a week for 30 days Refills: 0 Ordered: 30-Nov-2017 Fast DO, Amalia A Fast DO, Amalia A Start : 15-Oct-2017 End : 14-Nov-2017 Inactive montelukast 10 mg oral tablet (13 sources) Leukotriene Receptor Antagonist Start: 10-15-2017 take 1 tablet by mouth once daily at bedtime Montelukast Sodium 10 MG Oral Tablet 1 (one) Tablet qhs for 0 days Quantity: 30 {Tablet} Refills: 3 Ordered: 15-Oct-2017 Fast DO, Amalia A Fast DO, Amalia A Start : 15-Oct-2017 Active Problems Active Problems Problem Classification Problem Date Documented Da te Episodic/Chronic Acute bronchitis (6 sources) Acute bronchitis; Translations: [Acute bronchitis, unspecified] 11-29-2015 Episodic Asthma (20 sources) Asthma; Translations: [Asthma] 10-15-2017 Chronic Comment on above: hx of silica exposur e- 91/2 years Essential hypertension (1 source) Essential (primary) hypertension; Translations: [Essential (primary) hypertension] Onset: 06-12-2024 Chronic Genitourinary symptoms and ill-defined conditions (20 sources) Proteinuria, unspecified; Translations: [Proteinuria] Onset: 09-22-2017 10-15-2017 Episodic Inflammation; infection of eye (except that caused by tuberculosis or sexually transmitteddisease) (20 sources) Uveitis; 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] Resolved: 10-19-2017 10-19-2017 Episodic Comment on above: Dr Schulz Malaise and fatigue (20 sources) Fatigue; Translations: [Fatigue] 10-15-2017 Episodic Comment on above: needs sleep study Mood disorders (1 source) Major depressive disorder, single episode, severe without psychotic features; Translations: [Major depressive disorder, single episode, severe without psychotic features] Onset: 09-22-2017 Chronic Other aftercare (1 source) Other half-way (current) drug therapy; Translations: [Other half-way (current) drug therapy] Onset: 01-04-2018 Episodic Other gastrointestinal disorders (6 sources) Hemorrhagic diarrhea ; Translations: [Diarrhea, unspecified] 11-28-2015 Episodic Other injuries and conditions due to external causes (6 sources) Swallowed foreign body; Translations: [Foreign body of alimentary tract, part unspecified, initial encounter] 02-08-2024 Episodic Other liver diseases (10 sources) Inflammatory disease of liver; Translations: [Inflammatory liver disease, unspecified] 08-15-2024 Chronic Other liver diseases (2 sources) Inflammatory liver disease, unspecified; Translations: [Inflammatory liver disease, unspecified] Onset: 08-20-2024 Chronic Other lower respiratory disease (20 sources) Hemoptysis; Translations: [Hemoptysis] 10-15-2017 Episodic Other nutritional; endocrine; and metabolic disorders (18 sources) Body mass index 30+ - obesity; Translations: [BMI 33.0-33.9,adult] 10-15-2017 Chronic Other nutritional; endocrine; and metabolic disorders (10 sources) Obesity; Translations: [Obesity, unspecified] 08-15-2024 Chronic Other nutritional; endocrine; and metabolic disorders (2 sources) Obesity, unspecified; Translations: [Obesity, unspecified] Onset: 08-15-2024 Chronic Other upper respiratory disease (20 sources) Allergic rhinitis; Translations: [Allergic rhinitis] 10-15-2017 Chronic Regional enteritis and ulcerative colitis (20 sources) Ulcerative colitis; Translations: [Ulcerative colitis] 10-15-2017 Chronic Residual codes; unclassified (18 sources) H/O: Disorder; Translations: [History of Henoch-Schonlein purpura] 10-15-2017 Episodic Residual codes; unclassified (12 sources) Non-smoker; Translations: [Nonsmoker] 10-15-2017 Episodic Rheumatoid arthritis and related disease (20 sources) Ankylosing spondylitis of multiple sites in spine; Translations: [Ankylosing spondylitis] Onset: 09-24-2017 10-15-2017 Chronic Comment on above: Dr Weems diagnosed around 2014- Skin and subcutaneous tissue infections (6 sources) Cellulitis; Translations: [Cellulitis, unspecified] 05-02-2020 Episodic Spondylosis; intervertebral disc disorders; other back problems (13 sources) Ankylosis of spine; Translations: [Ankylosis of spine] 10-15-2017 Episodic Systemic lupus erythematosus and connective tissue disorders (13 sources) Autoimmune disease; Translations: [Autoimmune disorder] 10-15-2017 Chronic Thyroid disorders (2 sources) Other specified hypothyroidism; Translations: [Iodine-deficiency related diffuse (endemic) goiter] Onset: 04-20-2024 Chronic Past or Other Problems Problem Classification Problem Date Documented Da te Episodic/Chronic Other injuries and conditions due to external causes (1 source) Foreign body of alimentary tract, part unspecified, initial encounter; Translations: [Foreign body of alimentary tract, part unspecified, initial encounter] Onset: 03-31-2024 Episodic Other screening for suspected conditions (not mental disorders or infectious disease) (1 source) Abnormal results of liver function studies; Translations: [Abnormal results of liver function studies] Onset: 02-09-2024 Episodic Unclassified (8 sources) Recurrent iridocyclitis, left Unclassified (20 sources) Unclassified (8 sources) History of Henoch-Schonlein purpura Unclassified (14 sources) Nonsmoker; Translations: [Non-smoker] 10-15-2017 Unclassified (8 sources) BMI 33.0-33.9,adult NEGATED: Highlighted row has been ruled out!Unclassified (13 sources) Problem Onset: 10-15-2017 10-15-2017 Results Test Name Value Interpretation Reference Range Facility Gastroenterology Visit Repor [facility] 09-14-2024 Gastroenterology Visit Report [facility] Gastroenterology [address] [place] [address] OFFICE VISIT Date of Service: 09/14/24 MR#: [id number] Acct: [id number] Name: DORENE VÁZQUEZ Rep #: [id number] : 1980 Provider: Agusto North DO Age/Sex: 44/M Location: [facility] Status: Signed Intake Vital Signs 08/30/24 09:18 Height 5 ft 9 in Intake Visit Reasons: Test Result Allergies Iodinated Contrast Media (CONTRASTS) Allergy (Verified 08/30/24 09:14) Hives Medications ???Medication ???Instructions ???Recorded ???Confirmed ???Type mesalamine 1.2 gram tablet,delayed 1.2 g PO BID 11/28/15 09/14/24 H istory release difluprednate 0.05 % eye drops 1 drp LEFT EYE DAILY 05/02/2008/27 History infliximab 100 mg intravenous 100 mg IV .q6w 01/31/24 09/14/24 H istory solution (Remicade) vitamin E PO 08/15/24 09/14/24 History amlodipine 10 mg tablet 10 mg PO DAILY 08/30/24 09/14/24 H istory hydrochlorothiazide 25 mg tablet 25 mg PO DAILY 08/30/24 09/14/24 H istory metoprolol tartrate 25 mg tablet 25 mg PO BID 08/30/24 09/14/24 His tory resmetirom 100 mg tablet 100 mg PO DAILY 08/30/24 09/14/24 History (Rezdiffra) tamsulosin 0.4 mg capsule 0.4 mg PO QHS 08/30/24 09/14/24 Hi story [facility] Medical History (Updated 08/30/24 @ 09:21 by Vero Booker) Iritis Ankylosing spondylitis Ulcerative colitis Hypertension Liver fibrosis Fatty liver Social History (Updated 08/15/24 @ 11:56 by Jannie Javed) Smoking Status: Never smoker alcohol intake: never substance use type: does not use frequency: 1-2 times per week HPI HPI Details: DORENE VÁZQUEZ, is a 44 M who presents to the office today for follow up. US and elastography 01.14.24 hepatic measurement 18.5cm with fatty infiltration, stiffness measures 9.9kPa compatible with F2-F3 Metavir score. *BGI established 5.20.25 pt reports a PMH of ulcerative colitis, ankylosing spondylitis, and fatty liver. Pt reports that he sees Dr Serra and Dr Awan and they have been trying to get pt on Rezdiffra for about 5 months now, insurance is not approving it, so pt was told he needs to lose weight. Pt reports he would like a second opinion or other advice on how to manage his fatty liver. Has been taking Mesalamine for 8 years for UC and reports it is effective. liver biopsy .07.21 OV 09.14.24 pt reports new symptom of constipation, is having a bm once a day; used to have 2-3 daily. Pt wonders if this is related to increased stress due to waiting for test results. Pt is here to review test results. ROS Const Constitutional: Positive for fatigue; No fever(s) or weight change ENT ENT: No difficulty swallowing Gastro GI: Positive for bloating, change in bowel habits, constipation and excessive flatus; No abdominal pain, belching, change in stool character, coffee ground emesis, cramping, diarrhea, heartburn, difficulty swallowing, feeling full early, incontinent of stools, Vomiting blood/hematemesis, Blood in stool, loose stools, Black,tarry stools, nausea/dyspepsia, pain with swallowing, vomiting or other Musc Musculoskeletal: Positive for joint pain, back pain, joint swelling and stiffness Skin Skin: Positive for itchy eyes; No yellowing of the eye Psych Psychiatric: No anxiety and No depression Endo Endocrine: Positive for fatigue; No weight change Aller/Imm Allergy/Immunologic: Positive for itchy eyes Eze/Lymp Hematologic/Lymphatic: No easy bleeding or easy bruising Assessment and Plan Assessment and Plan (1) Obesity: Status: Acute (2) Hepatitis: Status: Acute Plan: 44-year-old gentleman with past medical history of ankylosing spondylitis on Remicade infusion after failing Humira and Enbrel. Patient also has a history also colitis on Lialda therapy 2.4 g a day. He was identified as having elevated LFTs and underwent FibroScan and was shown to have a fibrosis score of 9.9 kPa. They were trying to get him on Rezdiffra. However his insurance will not pay for it. I do not know if he had any workup for any other chronic liver disease. He has never had a blood transfusion. He has no history of viral hepatitis. Is no family history of liver disease. His current BMI is 30. If Differential diagnosis does include hereditary hemochromatosis, alpha-1 antitrypsin disease, sarcoidosis, amyloidosis, nonalcoholic steatohepatitis, drug-induced liver injury, elevated muscle enzymes. We will do biochemical workup and MRCP. Also different diagnosis is a primary bili cirrhosis and primary sclerosing cholangitis in the setting of ulcerative colitis. His liver biopsy results displayed mild interface hepatitis, mild to moderate macrovascular steatosis, negative iron deposition and negative PASD. His MASH activity score was +1 lobular inflammation +1 hepatocyte (more content not included)... Normal [facility] Absolute lymphocyte countOrd ered By: Andrew Ramirez on 08-30-2024 Lymphocytes Auto (Unsp spec) [#/Vol] 2.07 10*3/uL 0.83-4.51 [facility] Absolute neutrophil countOrd ered By: Andrew Ramirez on 08-30-2024 Neutrophils (Bld) [#/Vol] 4.4 10*3/uL 2.0-7.7 [facility] Activated partial thrombopla stin time (aPTT) in platelet poor plasma by coagulation aOrdered By: Andrew Archerfabiano on 08-30-2024 aPTT Coag (PPP) [Time] 25.3 s 24.1-36.2 [facility] Automated lymphocyte count a s percentage of total leukocytesOrdered By: Andrew Ramirez on 08-30-2024 Lymphocytes/100 WBC Auto (Unsp spec) 28.1 % 19-41 [facility] Basophil percentageOrdered B y: Andrew Ramirez on 08-30-2024 Basophils/100 WBC (Bld) 1.0 % 0-1 [facility] Biopsy/Inj or Needle Placeme nton 08-30-2024 Biopsy/Inj or Needle Placement [facility] Services [address] [place] [id number] Biopsy/Inj or Needle Placement MR#: [id number] Acct: [id number] Name: DORENE VÁZQUEZ Rep #: [id number] : 1980 M 44 From: Jason Egan MD PCP: Dr. Edmund Awan MD Status: [facility] Study: Biopsy/Inj or Needle Placement Date of Exam: 0 08/30/24 Exam# [id number] Ordering Dr: Agusto North DO PROCEDURE: LIVER BIOPSY UNDER CT GUIDANCE 08/30/2024 REASON FOR EXAM: ELEVATED LIVER ENZYMES FATTY LIVER. TECHNIQUE: Contiguous axial scans of 2.5 mm slice thicknesses obtained through the liver. One or more dose reduction techniques were used (e.g., automated exposure control, adjustment of mA and/or kv according to patient size, use of iterative reconstruction technique). RADIATION DOSE SUMMARY: DLP: 1153.15 mGycm COMPARISON: Ultrasound dated 05/11/2024 and 01/14/2024. KUB dated 01/31/2024. FINDINGS: The biopsy procedure was explained to the patient. Informed consent was obtained and the patient was given the opportunity to ask questions concerning the procedure. Patient was placed on the gantry table in a supine position. The marker grid was placed on the right hemiabdomen and scanning was initiated. The site of biopsy was localized as usual and documented. Sterile preparation of the skin was performed in the usual fashion. Local anesthesia was accomplished with lidocaine 2%. An 18 gauge, 10 cm in length, coaxial CorVocet biopsy set was utilized to perform the biopsies. A total of 3 core biopsy specimens were obtained and preserved in formalin. Adequate specimens were documented. Following the final biopsy the coaxial needle was removed and firm pressure was applied to the biopsy site. Sterile dressing was applied as usual. Post biopsy imaging shows no signs of hemorrhage or other abnormalities. SEDATION: 3 MG of Versed intravenously. 50 MCG of fentanyl intravenously. The patient's vital signs were monitored by telemetry during the procedure. CT/Biopsy/Inj or Needle Placement IMPRESSION: 1. SUCCESSFUL RANDOM DIAGNOSTIC LIVER BIOPSY UNDER CT GUIDANCE. PATIENT TOLERATED THE PROCEDURE WELL. THANK YOU FOR THIS REFERRAL. Reading Location: [place] [address] CC: Dr. Edmund Awan MD; Agusto North, Runner Man: Signed Normal [facility] CBC W/Diff, Automatedon 06-0 Absolute Lymph 2.07 X10 3/uL Normal 0.83-4.51 [facility] Comment on above: Performed By: #### L 100.0100, L500.4100, L501.5200, L500.4050, L501.9520 #### [facility] [address] [place], [address] Absolute Neut 4.4 X10 3/uL Normal 2.0-7.7 [facility] Comment on above: Performed By: #### L 100.0100, L500.4100, L501.5200, L500.4050, L501.9520 #### [facility] [address] [place], [address] Basophils/100 WBC (Bld) 1.0 % Normal 0-1 [facility] Comment on above: Performed By: #### L 100.0100, L500.4100, L501.5200, L500.4050, L501.9520 #### [facility] [address] [place], [address] Eosinophils/100 WBC (Bld) 2.3 % Normal 0-5 [facility] Comment on above: Performed By: #### L 100.0100, L500.4100, L501.5200, L500.4050, L501.9520 #### [facility] [address] [place], [address] Erythrocyte distribution width (RBC) [Ratio] 12.4 % Normal 11.6-14.6 [facility] Comment on above: Performed By: #### L 100.0100, L500.4100, L501.5200, L500.4050, L501.9520 #### [facility] [address] [place], [address] Hematocrit (Bld) [Volume fraction] 47.6 % Normal 40-54 [facility] Comment on above: Performed By: #### L 100.0100, L500.4100, L501.5200, L500.4050, L501.9520 #### [facility] [address] [place], [address] Hemoglobin (Bld) [Mass/Vol] 16.3 g/dL Normal 13.0-16.5 [facility] Comment on above: Performed By: #### L 100.0100, L500.4100, L501.5200, L500.4050, L501.9520 #### [facility] [address] [place], [address] IG% 0.500 Normal 0.0-0.9 [facility] Comment on above: Result Comment: IG% - Immature Granulocytes (promyelocytes, myelocytes and metamyelocytes) > 1% indicates that a LEFT SHIFT is Present. Performed By: #### L 100.0100, L500.4100, L501.5200, L500.4050, L501.9520 #### [facility] [address] [place], [address] Lymphocytes/100 WBC (Bld) 28.1 % Normal 19-41 [facility] Comment on above: Performed By: #### L 100.0100, L500.4100, L501.5200, L500.4050, L501.9520 #### [facility] [address] [place], [address] MCH (RBC) [Entitic mass] 29.1 pg Normal 27.0-32.0 [facility] Comment on above: Performed By: #### L 100.0100, L500.4100, L501.5200, L500.4050, L501.9520 #### [facility] [address] [place], [address] MCHC (RBC) [Mass/Vol] 34.2 g/dL Normal 32-36 [facility] Comment on above: Performed By: #### L 100.0100, L500.4100, L501.5200, L500.4050, L501.9520 #### [facility] [address] [place], [address] MCV (RBC) [Entitic vol] 84.8 fL Normal 80-94 [facility] Comment on above: Performed By: #### L 100.0100, L500.4100, L501.5200, L500.4050, L501.9520 #### [facility] [address] [place], [address] Monocytes/100 WBC (Bld) 8.2 % Normal 0-10 [facility] Comment on above: Performed By: #### L 100.0100, L500.4100, L501.5200, L500.4050, L501.9520 #### [facility] [address] [place], [address] Neutrophils/100 WBC (Bld) 59.9 % Normal 47-70 [facility] Comment on above: Performed By: #### L 100.0100, L500.4100, L501.5200, L500.4050, L501.9520 #### [facility] [address] [place], [address] Nucleated RBC (Bld) [#/Vol] 0 10*3/uL Normal 0-5 [facility] Comment on above: Performed By: #### L 100.0100, L500.4100, L501.5200, L500.4050, L501.9520 #### [facility] [address] [place], [address] Platelet mean volume (Bld) [Entitic vol] 11.3 fL Normal 6.2-12.0 [facility] Comment on above: Performed By: #### L 100.0100, L500.4100, L501.5200, L500.4050, L501.9520 #### [facility] [address] [place], [address] Platelets (Bld) [#/Vol] 239 10*3/uL Normal 150-450 [facility] Comment on above: Performed By: #### L 100.0100, L500.4100, L501.5200, L500.4050, L501.9520 #### [facility] [address] [place], [address] RBC (Bld) [#/Vol] 5.61 10*6/uL Normal 4.6-6.2 [facility] Comment on above: Performed By: #### L 100.0100, L500.4100, L501.5200, L500.4050, L501.9520 #### [facility] [address] [place], [address] RDW SD 37.7 fl Normal 35.1-43.9 [facility] Comment on above: Performed By: #### L 100.0100, L500.4100, L501.5200, L500.4050, L501.9520 #### [facility] [address] [place], [address] WBC (Bld) [#/Vol] 7.4 10*3/uL Normal 4.4-11.0 [facility] Comment on above: Performed By: #### L 100.0100, L500.4100, L501.5200, L500.4050, L501.9520 #### [facility] [address] [place], [address] Eosinophil percentageOrdered By: Andrew Ramirez on 08-30-2024 Eosinophils/100 WBC (Bld) 2.3 % 0-5 [facility] Erythrocyte distribution wid th ratioOrdered By: Andrew Ramirez on 08-30-2024 Erythrocyte distribution width (RBC) [Ratio] 12.4 % 11.6-14.6 [facility] Erythrocyte distribution wid th standard deviationOrdered By: Andrew Ramirez on 08-30-2024 Erythrocyte distribution width (RBC) [Ratio] 37.7 fl 35.1-43.9 [facility] Hematocrit Auto (Bld) [Volum e fraction]Ordered By: Andrew Ramirez on 08-30-2024 Hematocrit (Bld) [Volume fraction] 47.6 % 40-54 [facility] Hemoglobin measurementOrdere d By: Andrew Ramirez on 08-30-2024 Hemoglobin (Bld) [Mass/Vol] 16.3 g/dL 13.0-16.5 [facility] Immature granulocytes/100 WB C Auto (Bld)Ordered By: Andrew Ramirez on 08-30-2024 Immature granulocytes/100 WBC (Bld) 0.500 % 0.0-0.9 [facility] Comment on above: IG% - Immature Granu locytes (promyelocytes, myelocytes and metamyelocytes) > 1% indicates that a LEFT SHIFT is Present. International normalized rat io (INR) calculationOrdered By: Andrew Ramirez on 08-30-2024 INR Coag (Bld) [Relative time] 0.9 {INR} [facility] L305.1805on 08-30-2024 Path [facility] SEE PATHOLOGY REPORT Normal [facility] Comment on above: Order Comment: Order Date: 03/23/24 Order Info: 0786-1 - CMP Order Info: [id number] - LIPID Order Info: [id number] - MG Order Info: 3016-3 - TSH Order Info: 3024-7 - T4F Result Comment: Spec imen sent to [facility] Pathology Department. Report available in EMR. Performed By: #### L 100.0100, L500.4100, L501.5200, L500.4050, L501.9520 #### [facility] [address] [place], [place], [address] MCV (mean corpuscular volume ) determinationOrdered By: Andrew Ramirez on 08-30-2024 MCV (RBC) [Entitic vol] 84.8 fL 80-94 [facility] Mean corpuscular hemoglobin (MCH) determinationOrdered By: Andrew Ramirez on 08-30-2024 MCH (RBC) [Entitic mass] 29.1 pg 27.0-32.0 [facility] Mean corpuscular hemoglobin concentration (MCHC) determinationOrdered By: Andrew Ramirez on 08-30-2024 MCHC (RBC) [Mass/Vol] 34.2 g/dL 32-36 [facility] Mean platelet volume determi nationOrdered By: Andrew Ramirez on 08-30-2024 Platelet mean volume (Bld) [Entitic vol] 11.3 fL 6.2-12.0 [facility] Monocyte percentageOrdered B y: Andrew Ramirez on 08-30-2024 Monocytes/100 WBC (Bld) 8.2 % 0-10 [facility] Neutrophil percentageOrdered By: Andrew Ramirez on 08-30-2024 Neutrophils/100 WBC (Bld) 59.9 % 47-70 [facility] Nucleated red blood cell per centageOrdered By: Andrew Ramirez on 08-30-2024 Nucleated RBC/100 WBC (Bld) [Ratio] 0 % 0-5 [facility] Partial Thromboplast Timeon 08-30-2024 aPTT Coag (Bld) [Time] 25.3 s Normal 24.1-36.2 [facility] Comment on above: Performed By: #### L 100.0100, L500.4100, L501.5200, L500.4050, L501.9520 #### [facility] [address] [place], [address] Platelet countOrdered By: Steven Ramirez on 08-30-2024 Platelets (Bld) [#/Vol] 239 10*3/uL 150-450 [facility] Prothrombin Time w/INRon INR Coag (PPP) [Relative time] 0.9 {INR} Normal [facility] Comment on above: Performed By: #### L 100.0100, L500.4100, L501.5200, L500.4050, L501.9520 #### [facility] [address] [place], [address] PT Coag (PPP) [Time] 12.5 s Normal 11.7-14.9 [facility] Comment on above: Performed By: #### L 100.0100, L500.4100, L501.5200, L500.4050, L501.9520 #### [facility] [address] [place], [address] Prothrombin timeOrdered By: Andrew Ramirez on 08-30-2024 PT Coag (PPP) [Time] 12.5 s 11.7-14.9 [facility] RBC Auto (Bld) [#/Vol]Ordere d By: Andrew Ramirez on 08-30-2024 RBC (Bld) [#/Vol] 5.61 10*6/uL 4.6-6.2 [facility] White blood cell (WBC) count Ordered By: Andrew Ramirez on 08-30-2024 WBC (Bld) [#/Vol] 7.4 10*3/uL 4.4-11.0 [facility] ANCAon 08-24-2024 Atypical pANCA <1:20 Normal Neg:<1:20 [facility] Comment on above: Order Comment: Order Date: 03/23/24 Order Info: 0786-1 - CMP Order Info: [id number] - LIPID Order Info: [id number] - MG Order Info: 301-3 - TSH Order Info: 7 - T4F Result Comment: The atypical pANCA pattern has been observed in a significant percentage of patients with ulcerative colitis, primary sclerosing cholangitis and autoimmune hepatitis. Performed By: #### L 100.0100, L500.4100, L501.5200, L500.4050, L501.9520 #### [facility] [address] [place], [address] Cytoplasmic Ab <1:20 Normal Neg:<1:20 [facility] Comment on above: Order Comment: Order Date: 03/23/24 Order Info: 0786-1 - CMP Order Info: [id number] - LIPID Order Info: [id number] - MG Order Info: 3016-3 - TSH Order Info: 302-7 - T4F Performed By: #### L 100.0100, L500.4100, L501.5200, L500.4050, L501.9520 #### [facility] [address] [place], [address] Perinuclear Ab. 1:20 Abnormal Neg:<1:20 [facility] Comment on above: Order Comment: Order Date: 03/23/24 Order Info: 0786-1 - CMP Order Info: [id number] - LIPID Order Info: [id number] - MG Order Info: 3 - TSH Order Info: 3023-09 - T4F Result Comment: The presence of positive fluorescence exhibiting P-ANCA or C-ANCA patterns alone is not specific for the diagnosis of Pari's Granulomatosis (WG) or microscopic polyangiitis. Decisions about treatment should not be based solely on ANCA IFA results. The [employer] ANCA Group Consensus recommends follow up testing of positive sera with both ME- 3 and MPO-ANCA enzyme immunoassays. As many as 5% serum samples are positive only by EIA. Ref. AM J Clin Pathol 1999;111:507-513. Performed By: #### L 100.0100, L500.4100, L501.5200, L500.4050, L501.9520 #### [facility] [address] [place], [place], [address] Aldolaseon 08-24-2024 ALDOLASE 6.1 U/L Normal 3.3-10.3 [facility] Comment on above: Order Comment: Order Date: 03/23/24 Order Info: 0786-1 - CMP Order Info: [id number] - LIPID Order Info: [id number] - MG Order Info: 3 - TSH Order Info: [id number] - T4F Performed By: #### L 100.0100, L500.4100, L501.5200, L500.4050, L501.9520 #### [facility] [address] [place], [place], [address] Anti-Smooth Muscle ABSon ANTISMOOTH MUSC 9 Units Normal 0-19 [facility] Comment on above: Order Comment: Order Date: 03/23/24 Order Info: 0184-1 - CBCD Result Comment: Nega tive 0 - 19 Weak positive 20 - 30 Moderate to strong positive >30 Actin Antibodies are found in 52-85% of patients with autoimmune hepatitis or chronic active hepatitis and in 22% of patients with primary biliary cirrhosis. Performed By: #### L 100.0100, L500.4100, L501.5200, L500.4050, L501.9520 #### [facility] [address] [place], [place], [id number] [phone] Ceruloplasminon 08-24-2024 CERULOPLASMIN 23.6 mg/dL Normal 16.0-31.0 [facility] Comment on above: Order Comment: Order Date: 03/23/24 Order Info: 0786-1 - CMP Order Info: [id number] - LIPID Order Info: [id number] - MG Order Info: 3015-3 - TSH Order Info: 7 - T4F Performed By: #### L 100.0100, L500.4100, L501.5200, L500.4050, L501.9520 #### [facility] [address] [place], [address] Copper, Serum or Plasmaon COPPER, SERUM 98 ug/dL Normal 69-132 [facility] Comment on above: Order Comment: Order Date: 03/23/24 Order Info: 0786- - CMP Order Info: [id number] - LIPID Order Info: 75312-0 - MG Order Info: 3015-3 - TSH Order Info: 7 - T4F Result Comment: Dete ction Limit = 5 Performed By: #### L 100.0100, L500.4100, L501.5200, L500.4050, L501.9520 #### [facility] [address] [place], [place], [address] Haptoglobinon 08-24-2024 HAPTOGLOBIN 51 mg/dL Normal 23-355 [facility] Comment on above: Order Comment: Order Date: 03/23/24 Order Info: 0184-1 - CBCD Performed By: #### L 100.0100, L500.4100, L501.5200, L500.4050, L501.9520 #### [facility] [address] [place], [address] Hepatitis Panel Acuteon 05-2 COMMENT Comment Normal . [facility] Comment on above: Order Comment: Order Date: 03/23/24 Order Info: 0184-1 - CBCD Result Comment: Not infected with HCV unless early or acute infection is suspected (which may be delayed in an immunocompromised individual), or other evidence exists to indicate HCV infection. Performed By: #### L 100.0100, L500.4100, L501.5200, L500.4050, L501.9520 #### [facility] [address] [place], [address] HEP B CORE,IgM Negative Normal Negative [facility] Comment on above: Order Comment: Order Date: 03/23/24 Order Info: 0184- - CBCD Performed By: #### L 100.0100, L500.4100, L501.5200, L500.4050, L501.9520 #### [facility] [address] [place], [place], [id number] [phone] HEP B SURF AG Negative Normal Negative [facility] Comment on above: Order Comment: Order Date: 03/23/24 Order Info: 0184-1 - CBCD Performed By: #### L 100.0100, L500.4100, L501.5200, L500.4050, L501.9520 #### [facility] [address] [place], [place], [id number] [phone] HEP C VIRUS AB Non-Reactive Normal Non Reactive [facility] Comment on above: Order Comment: Order Date: 03/23/24 Order Info: 0184-1 - CBCD Performed By: #### L 100.0100, L500.4100, L501.5200, L500.4050, L501.9520 #### [facility] [address] [place], [address] HEPATITIS A-IgM Negative Normal Negative [facility] Comment on above: Order Comment: Order Date: 03/23/24 Order Info: 0184-1 - CBCD Result Comment: A ne gative anti-HAV IgM result suggests no recent or current HAV infection. Performed By: #### L 100.0100, L500.4100, L501.5200, L500.4050, L501.9520 #### [facility] [address] [place], [address] BO + Protein Elect, Serumon 08-24-2024 Albumin [Mass/Vol] 4.3 g/dL Normal 2.9-4.4 [facility] Comment on above: Order Comment: Order Date: 03/23/24 Order Info: 0184-1 - CBCD Performed By: #### L 100.0100, L500.4100, L501.5200, L500.4050, L501.9520 #### [facility] [address] [place], [address] Albumin/Globulin [Mass ratio] 1.2 {ratio} Normal 0.7-1.7 [facility] Comment on above: Order Comment: Order Date: 03/23/24 Order Info: 0184-1 - CBCD Performed By: #### L 100.0100, L500.4100, L501.5200, L500.4050, L501.9520 #### [facility] [address] [place], [address] WHVIS-9-NRIA 0.2 g/dL Normal 0.0-0.4 [facility] Comment on above: Order Comment: Order Date: 03/23/24 Order Info: 0184-1 - CBCD Performed By: #### L 100.0100, L500.4100, L501.5200, L500.4050, L501.9520 #### [facility] [address] [place], [address] ZULDR-4-DSGK 0.6 g/dL Normal 0.4-1.0 [facility] Comment on above: Order Comment: Order Date: 03/23/24 Order Info: 0184-1 - CBCD Performed By: #### L 100.0100, L500.4100, L501.5200, L500.4050, L501.9520 #### [facility] [address] [place], [address] BETA GLOBULIN 1.1 g/dL Normal 0.7-1.3 [facility] Comment on above: Order Comment: Order Date: 03/23/24 Order Info: 018- - CBCD Performed By: #### L 100.0100, L500.4100, L501.5200, L500.4050, L501.9520 #### [facility] [address] [place], [address] GAMMA GLOBULIN 1.9 g/dL High 0.4-1.8 [facility] Comment on above: Order Comment: Order Date: 03/23/24 Order Info: [id number] - CBCD Performed By: #### L 100.0100, L500.4100, L501.5200, L500.4050, L501.9520 #### [facility] [address] [place], [address] Globulin (S) [Mass/Vol] 3.8 g/dL Normal 2.2-3.9 [facility] Comment on above: Order Comment: Order Date: 03/23/24 Order Info: [id number] - CBCD Performed By: #### L 100.0100, L500.4100, L501.5200, L500.4050, L501.9520 #### [facility] [address] [place], [address] BO RESULT,S Comment Normal . [facility] Comment on above: Order Comment: Order Date: 03/23/24 Order Info: 018- - CBCD Result Comment: No m onoclonality detected. Performed By: #### L 100.0100, L500.4100, L501.5200, L500.4050, L501.9520 #### [facility] [address] [place], [address] IMMUNOGLOB A QN 290 mg/dL Normal 90-386 [facility] Comment on above: Order Comment: Order Date: 03/23/24 Order Info: 0184- - CBCD Performed By: #### L 100.0100, L500.4100, L501.5200, L500.4050, L501.9520 #### [facility] [address] [place], [address] IMMUNOGLOB G QN 1834 mg/dL High 603-1613 [facility] Comment on above: Order Comment: Order Date: 03/23/24 Order Info: 018- - CBCD Performed By: #### L 100.0100, L500.4100, L501.5200, L500.4050, L501.9520 #### [facility] [address] [place], [address] IMMUNOGLOB M QN 89 mg/dL Normal 20-172 [facility] Comment on above: Order Comment: Order Date: 03/23/24 Order Info: 0184- - CBCD Performed By: #### L 100.0100, L500.4100, L501.5200, L500.4050, L501.9520 #### [facility] [address] [place], [address] M-Bobby Not Observed Normal Not Observed [facility] Comment on above: Order Comment: Order Date: 03/23/24 Order Info: 0184- - CBCD Performed By: #### L 100.0100, L500.4100, L501.5200, L500.4050, L501.9520 #### [facility] [address] [place], [address] NOTE: Comment Normal . [facility] Comment on above: Order Comment: Order Date: 03/23/24 Order Info: 0184- - CBCD Result Comment: Prot ein electrophoresis scan will follow via computer, mail, or blood collector delivery. Performed By: #### L 100.0100, L500.4100, L501.5200, L500.4050, L501.9520 #### [facility] [address] [place], [place], [address] Protein [Mass/Vol] 8.1 g/dL Normal 6.0-8.5 [facility] Comment on above: Order Comment: Order Date: 03/23/24 Order Info: 018- - CBCD Performed By: #### L 100.0100, L500.4100, L501.5200, L500.4050, L501.9520 #### [facility] [address] [place], [place], [id number] [phone] Quantiferon TB-Gold+on 08-24 QFT MITOGEN JOANNE TNP Normal . [facility] Comment on above: Order Comment: Order Date: 03/23/24 Order Info: 018- - CBCD Result Comment: Test not performed Performed By: #### L 100.0100, L500.4100, L501.5200, L500.4050, L501.9520 #### [facility] [address] [place], [address] QFT NIL VALUE TNP Normal . [facility] Comment on above: Order Comment: Order Date: 03/23/24 Order Info: 01806-27 - CBCD Result Comment: Test not performed Performed By: #### L 100.0100, L500.4100, L501.5200, L500.4050, L501.9520 #### [facility] [address] [place], [address] [phone] QFT TB GOLD+ TNP Normal . [facility] Comment on above: Order Comment: Order Date: 03/23/24 Order Info: 0184- - CBCD Performed By: #### L 100.0100, L500.4100, L501.5200, L500.4050, L501.9520 #### [facility] [address] [place], [address] QFT TB POS CRIT TNP Normal . [facility] Comment on above: Order Comment: Order Date: 03/23/24 Order Info: 0184-1 - CBCD Performed By: #### L 100.0100, L500.4100, L501.5200, L500.4050, L501.9520 #### [facility] [address] [place], [address] QFT TB1+ AG JOANNE TNP Normal . [facility] Comment on above: Order Comment: Order Date: 03/23/24 Order Info: 0184 - CBCD Result Comment: Test not performed. Insufficient specimen to perform or complete analysis. Performed By: #### L 100.0100, L500.4100, L501.5200, L500.4050, L501.9520 #### [facility] [address] [place], [address] QFT TB2+ AG JOANNE TNP Normal . [facility] Comment on above: Order Comment: Order Date: 03/23/24 Order Info: 0184- - CBCD Result Comment: Test not performed Performed By: #### L 100.0100, L500.4100, L501.5200, L500.4050, L501.9520 #### [facility] [address] [place], [address] Testosterone, Total / Freeon 08-24-2024 TESTOSTER,FREE 10.63 ng/dL Normal 5.00-21.00 [facility] Comment on above: Order Comment: Order Date: 03/23/24 Order Info: 0184-1 - CBCD Performed By: #### L 100.0100, L500.4100, L501.5200, L500.4050, L501.9520 #### [facility] [address] [place], [address] TESTOSTER,TOTAL 425 ng/dL Normal 264-916 [facility] Comment on above: Order Comment: Order Date: 03/23/24 Order Info: 0184-1 - CBCD Result Comment: Adul t male reference interval is based on a population of healthy nonobese males (BMI <30) between 19 and 39 years old. eugenie Liz.al. JCEM 2017,102;2362-3255. PMID: [id number]. Performed By: #### L 100.0100, L500.4100, L501.5200, L500.4050, L501.9520 #### [facility] [address] [place], [address] TESTOSTERONE,%F 2.50 Normal 1.50-4.20 [facility] Comment on above: Order Comment: Order Date: 03/23/24 Order Info: 0184-1 - CBCD Performed By: #### L 100.0100, L500.4100, L501.5200, L500.4050, L501.9520 #### [facility] [address] [place], [address] L3410.9996on 08-23-2024 [facility] Misc. 3 Normal [facility] Comment on above: Order Comment: Order Date: 03/23/24 Order Info: 0184-1 - CBCD Result Comment: TEST RESULTS LIMITS Hered.Hemochromatosis, DNA Hereditary Hemochromatosis Result: c.845G>A (p.Pnt325Oop) - Not Detected c.187C>G (p.Kve67Hfh) - Not Detected c.193A>T (p.Sbj30Nff) - Not Detected Not associated with increased risk to develop clinical symptoms of Hereditary Hemochromatosis. In symptomatic individuals, other causes of iron overload should be evaluated. See Additional Information and Comments. Please Note: Additional Clinical Information: Hereditary hemochromatosis (HFE related) is an autosomal recessive iron storage disorder. Patients may have a genetic diagnosis of hereditary hemochromatosis and never show clinical symptoms. Clinical symptoms typically appear between 40 to 60 years in males and after menopause in females. Signs and symptoms may include organ damage, primarily in the liver, risk for hepatocellular carcinoma, diabetes, and heart disease due to iron accumulation. Life expectancy may be decreased in individuals who develop cirrhosis. Treatment for clinically symptomatic individuals may include therapeutic phlebotomy. Liver transplant may be used to treat end stage liver failure. For preventive care, monitoring for iron overload is recommended for patients who are homozygous for c.845G>A (p.Ezz104Lsm) and have yet to experience clinical symptoms. Comments: The most common HFE variants associated with hereditary hemochromatosis are c.845G>A (p.Tcy250Zdj), c.187C>G (p.Nnx26Brh), c.193A>T (p.Tvh34Gil). While patients homozygous for c.845G>A (p.Iyh180Ura) are the most likely to present clinical symptoms, less than 10% develop clinically significant iron overload with tissue and organ damage. Genetic counseling is recommended to discuss the potential clinical implications of positive results, as well as recommendations for testing family members. Genetic Coordinators are available for health care providers to discuss results at [phone] Test Details: Three variants analyzed: c.845G>A (p.Tii828Pnf), commonly referred to as C282Y c.187C>G (p.Iwq69Hmv), commonly referred to as H63D c.193A>T (p.Mot66Hqv), commonly referred to as S65C Methods/Limitations: DNA Analysis of the HFE gene (NM_[id number]) was performed by PCR amplification followed by restriction enzyme digestion analyses. Results must be combined with clinical information for the most accurate interpretation. Molecular-based testing is highly accurate, but as in any laboratory test, diagnostic errors may occur. False positive or false negative results may occur for reasons that include genetic variants, blood transfusions, bone marrow transplantation, somatic or tissue-specific mosaicism, mislabeled samples, or erroneous representation of family relationships. This test was developed and its performance characteristics determined by [employer]. It has not been cleared or approved by the Food and Drug Administration. References: Tato BR, Emmanuel PC, Arturo KV, Alex LW, Frank ; [employer]. Diagnosis and management of hemochromatosis: 2011 practice guideline by the [employer]. Hepatology. 2011 Sep;54(1):328-43. doi: 10.1002/hep.22515. PMID: 85594952; PMCID: NPO3194885. Bao G, Nedra P, Antonio DW, Koki H, Erwin O, Malcom S, Wali I, Bernabe M, Ivette Lino. [facility] best practice guidelines for the molecular genetic diagnosis of hereditary hemochromatosis (HH). Eur J Hum Agueda. 2016 Apr;24(4):479-95. doi: 10.1038/ejhg.2015.128. Epub 2014Oct 03. PMID: 03667429; PMCID: [id number]. Reviewed by: Technical Component performed at [facility] Professional Component performed by: Piero Garcia, PhD, [facility] [id number], [facility], [address] [place] [address] TESTING PERFORMED AT [facility]. ORIGINAL REPORT ON FILE IN LAB CONTAINS ADDITIONAL TEST SITE INFORMATION. Performed By: #### L 100.0100, L500.4100, L501.5200, L500.4050, L501.9520 #### [facility] [address] [place], [address] CHIP Comprehensive Panelon ANTI-DNA (DS)AB <1 Normal 0-9 [facility] Comment on above: Result Comment: Nega tive <5 Equivocal 5 - 9 Positive >9 Performed By: #### L 3400.0700, L3300.0100, L3100.7000, L3410.9996, L503.6030, L3100.1850, L3000.0375, L3100.5440, L3300.1200, L501.3620, L5500.0410, L503.6550, L3100.3425, L3100.5310, L3890.6006, L800.1280, L803.2200, L3400.8000 #### [facility] [address] [place], [place], [id number] ANTI-SS-A 1.6 AI High 0.0-0.9 [facility] Comment on above: Performed By: #### L 3400.0700, L3300.0100, L3100.7000, L3410.9996, L503.6030, L3100.1850, L3000.0375, L3100.5440, L3300.1200, L501.3620, L5500.0410, L503.6550, L3100.3425, L3100.5310, L3890.6006, L800.1280, L803.2200, L3400.8000 #### [facility] [address] [place], [address] ANTI-SS-B < 0.2 Normal 0.0-0.9 [facility] Comment on above: Performed By: #### L 3400.0700, L3300.0100, L3100.7000, L3410.9996, L503.6030, L3100.1850, L3000.0375, L3100.5440, L3300.1200, L501.3620, L5500.0410, L503.6550, L3100.3425, L3100.5310, L3890.6006, L800.1280, L803.2200, L3400.8000 #### [facility] [address] [place], [address] Allergen, Food Profileon CLAM <0.10 Normal Class 0 [facility] Comment on above: Performed By: #### L 100.0100, L500.4100, L501.5200, L500.4050, L501.9520 #### [facility] [address] [place], [address] CODFISH <0.10 Normal Class 0 [facility] Comment on above: Performed By: #### L 100.0100, L500.4100, L501.5200, L500.4050, L501.9520 #### [facility] [address] [place], [address] COMMENT Comment Normal . [facility] Comment on above: Result Comment: [place] melendez of Specific IgE Class Description of Class ----- < 0.10 0 Negative 0.10 - 0.31 0/I Equivocal/Low 0.32 - 0.55 I Low 0.56 - 1.40 II Moderate 1.41 - 3.90 III High 3.91 - 19.00 IV Very High 19.01 - 100.00 V Very High >100.00 Very High Performed By: #### L 100.0100, L500.4100, L501.5200, L500.4050, L501.9520 #### [facility] [address] [place], [address] CORN <0.10 Normal Class 0 [facility] Comment on above: Performed By: #### L 100.0100, L500.4100, L501.5200, L500.4050, L501.9520 #### [facility] [address] [place], [address] EGG, WHITE <0.10 Normal Class 0 [facility] Comment on above: Performed By: #### L 100.0100, L500.4100, L501.5200, L500.4050, L501.9520 #### [facility] [address] [place], [address] MILK (COW) <0.10 Normal Class 0 [facility] Comment on above: Performed By: #### L 100.0100, L500.4100, L501.5200, L500.4050, L501.9520 #### [facility] [address] [place], [address] PEANUT <0.10 Normal Class 0 [facility] Comment on above: Performed By: #### L 100.0100, L500.4100, L501.5200, L500.4050, L501.9520 #### [facility] [address] [place], [address] SCALLOP <0.10 Normal Class 0 [facility] Comment on above: Performed By: #### L 100.0100, L500.4100, L501.5200, L500.4050, L501.9520 #### [facility] [address] [place], [place], [facility] SESAME SEED <0.10 Normal Class 0 [facility] Comment on above: Result Comment: Perf ormed at: [facility] [address] [id number] Client Relation Specialist: Amari Gonsales PhD, Phone: [phone] Performed at: [facility] [address] [id number] Client Relation Specialist: Castillo Mujica MD, Phone: [phone] Performed By: #### L 100.0100, L500.4100, L501.5200, L500.4050, L501.9520 #### [facility] [address] [place], [address] SHRIMP <0.10 Normal Class 0 [facility] Comment on above: Performed By: #### L 100.0100, L500.4100, L501.5200, L500.4050, L501.9520 #### [facility] [address] [place], [address] SOYBEAN <0.10 Normal Class 0 [facility] Comment on above: Performed By: #### L 100.0100, L500.4100, L501.5200, L500.4050, L501.9520 #### [facility] [address] [place], [address] WALNUT,(Food) <0.10 Normal Class 0 [facility] Comment on above: Performed By: #### L 100.0100, L500.4100, L501.5200, L500.4050, L501.9520 #### [facility] [address] [place], [address] WHEAT <0.10 Normal Class 0 [facility] Comment on above: Performed By: #### L 100.0100, L500.4100, L501.5200, L500.4050, L501.9520 #### [facility] [address] [place], [address] Anti-Mitochondrial ABon 05- ANTIMITOCHON AB <20.0 Normal 0.0-20.0 [facility] Comment on above: Result Comment: Nega tive 0.0 - 20.0 Equivocal 20.1 - 24.9 Positive >24.9 Mitochondrial (M2) Antibodies are found in 90-96% of patients with primary biliary cirrhosis. Performed By: #### L 100.0100, L500.4100, L501.5200, L500.4050, L501.9520 #### [facility] [address] [place], [address] Albumin Elph [Mass/Vol]Order ed By: Agusto North on 08-15-2024 Albumin [Mass/Vol] 4.3 g/dL 2.9-4.4 [facility] Aldolase ser/plasOrdered By: Agusto North on 08-15-2024 Aldolase [Catalytic activity/Vol] 6.1 mU/mL 3.3-10.3 [facility] CPK Total, Creatine Kinaseon 08-15-2024 CPK TOTAL 108 U/L Normal 24-195 [facility] Comment on above: Performed By: #### L 3400.0700, L3300.0100, L3100.7000, L3410.9996, L503.6030, L3100.1850, L3000.0375, L3100.5440, L3300.1200, L501.3620, L5500.0410, L503.6550, L3100.3425, L3100.5310, L3890.6006, L800.1280, L803.2200, L3400.8000 #### [facility] [address] [place], [place], [id number] Ferritinon 08-15-2024 Ferritin [Mass/Vol] 190 ng/mL Normal 37-417 [facility] Comment on above: Performed By: #### L 3400.0700, L3300.0100, L3100.7000, L3410.9996, L503.6030, L3100.1850, L3000.0375, L3100.5440, L3300.1200, L501.3620, L5500.0410, L503.6550, L3100.3425, L3100.5310, L3890.6006, L800.1280, L803.2200, L3400.8000 #### [facility] [address] [place], [place], [address] Free testosterone percentage Ordered By: Agusto North on 08-15-2024 Testosterone Free/Testosterone.total [Mass fraction] 2.50 % 1.50-4.20 [facility] Gastroenterology Visit Repor ton 08-15-2024 Gastroenterology Visit Report [facility] [address] [place] [address] OFFICE VISIT Date of Service: 08/15/24 MR#: [id number] Acct: [id number] Name: DORENE VÁZQUEZ Rep #: [id number] : 1980 Provider: Agusto North DO Age/Sex: 44/M [place] [facility] [place]: Signed Intake Vital Signs 01/31/24 20:05 Height 5 ft 8 in Intake Visit Reasons: 2ND OPINION -FATTY LIVER - PER HIS MOM SEE DR. Ordoñez Allergies Iodinated Contrast Media (CONTRASTS) Allergy (Verified 01/31/24 20:06) Hives Medications ???Medication ???Instructions ???Recorded ???Confirmed ???Type mesalamine 1.2 gram tablet,delayed 1.2 g PO BID 11/28/15 08/15/24 H istory release difluprednate 0.05 % eye drops 1 drp LEFT EYE DAILY 05/02/20 110 07/20 History infliximab 100 mg intravenous IV .q6w 01/31/24 08/15/24 History solution (Remicade) vitamin E PO 08/15/24 History PFSH Medical History (Updated 08/15/24 @ 10:[address] Liz Friend, DO) Liver fibrosis Fatty liver Social History (Updated 08/15/24 @ 11:56 by Jannie Javed) Smoking Status: Never smoker alcohol intake: never substance use type: does not use frequency: 1-2 times per week HPI HPI Details: DORENE VÁZQUEZ, is a 44 M who presents to the office today for initial consult. US and elastography 01.14.24 hepatic measurement 18.5cm with fatty infiltration, stiffness measures 9.9kPa compatible with F2-F3 Metavir score. *BGI established 5.20.25 pt reports a PMH of ulcerative colitis, ankylosing spondylitis, and fatty liver. Pt reports that he sees Dr Serra and Dr Awan and they have been trying to get pt on Rezdiffra for about 5 months now, insurance is not approving it, so pt was told he needs to lose weight. Pt reports he would like a second opinion or other advice on how to manage his fatty liver. Has been taking Mesalamine for 8 years for UC and reports it is effective. ROS Const Constitutional: Positive for fatigue and headache(s); No fever(s) or weight change ENT ENT: Positive for headache(s); No difficulty swallowing Gastro GI: Positive for change in bowel habits; No abdominal pain, belching, bloating, change in stool character, coffee ground emesis, constipation, cramping, diarrhea, heartburn, difficulty swallowing, feeling full early, excessive flatus, incontinent of stools, Vomiting blood/hematemesis, Blood in stool, loose stools, Black,tarry stools, nausea/dyspepsia, pain with swallowing, vomiting or other Musc Musculoskeletal: Positive for back pain, numbness, tingling and Arthritis; No joint pain Skin Skin: No yellowing of the eye or itchy eyes Neuro Neurology: Positive for headache(s), numbness and tingling Psych Psychiatric: No anxiety and Positive for depression Endo Endocrine: Positive for fatigue; No weight change Aller/Imm Allergy/Immunologic: No itchy eyes Eze/Lymp Hematologic/Lymphatic: No easy bleeding or easy bruising Exam Const General: cooperative, healthy appearing, comfortable and no acute distress Nutritional Appearance: average body habitus and well nourished Orientation: alert, awake and oriented x3 HENMT Head: normal to inspection Nose: external nose normal Eyes Eyelids: eyelids normal Sclera: sclerae normal Resp Effort Inspection: normal respiratory effort Auscultation: Bilateral: Clear to Auscultation Cardio Rate: regular rate Rhythm: regular rhythm GI Inspection: normal to inspection Auscultation: normal bowel sounds Palpation: soft Rectal Exam: visual inspection normal and deferred Assessment and Plan Assessment and Plan (1) Obesity: Status: Acute (2) Hepatitis: Status: Acute Plan: 44-year-old gentleman with past medical history of ankylosing spondylitis on Remicade infusion after failing Humira and Enbrel. Patient also has a history also colitis on Lialda therapy 2.4 g a day. He was identified as having elevated LFTs and underwent FibroScan and was shown to have a fibrosis score of 9.9 kPa. They were trying to get him on Rezdiffra. However his insurance will not pay for it. I do not know if he had any workup for any other chronic liver disease. He has never had a blood transfusion. He has no history of viral hepatitis. Is no family history of liver disease. His current BMI is 30. If Differential diagnosis does include hereditary hemochromatosis, alpha-1 antitrypsin disease, sarcoidosis, amyloidosis, nonalcoholic steatohepatitis, drug-induced liver injury, elevated muscle enzymes. We will do biochemical workup and MRCP. Also different diagnosis is a primary bili cirrhosis and primary sclerosing cholangitis in the setting of ulcerative colitis. Orders: Orders [facility] Misc. 2 Today E66.9 - Obesity, unspecified Testosterone, Total / Free Today E66.9 - Obesity, unspecified Anti-Mitochondria (more content not included)... Normal [facility] HIVon 08-15-2024 HIV Non-Reactive Normal Nonreactive [facility] Comment on above: Result Comment: Non- Reactive Reactive Repeatedly reactive samples must be confirmed according to CDC recommended confirmatory algorithms. The subresults for either HIVAG or AHIV can be used as an aid in the selection of the confirmation algorithm for reactive samples. Send out specimens with Reactive results to [facility] for confirmation. Order the HIV antibody detection and differentiation: lc#[id number] Performed By: #### L 3400.0700, L3300.0100, L3100.7000, L3410.9996, L503.6030, L3100.1850, L3000.0375, L3100.5440, L3300.1200, L501.3620, L5500.0410, L503.6550, L3100.3425, L3100.5310, L3890.6006, L800.1280, L803.2200, L3400.8000 #### [facility] [address] [place], [address] Interpretation of serum or p lasma protein pattern by immunofixation (narrative resultOrdered By: Agusto North on 08-15-2024 Protein Fractions Immunofixation Michael [Interp] Not Observed g/dL Not Observed [facility] Iron measurement (mass/mass) Ordered By: Agusto North on 08-15-2024 Iron (Unsp spec) [Mass/Mass] 112 ug/dL 65-175 [facility] Iron+Iron Binding Capacityon 08-15-2024 Iron [Mass/Vol] 112 ug/dL Normal 65-175 [facility] Comment on above: Performed By: #### L 100.0100, L500.4100, L501.5200, L500.4050, L501.9520 #### [facility] [address] [place], [address] IRON SATURATION 35.0 Normal 9-55 [facility] Comment on above: Performed By: #### L 100.0100, L500.4100, L501.5200, L500.4050, L501.9520 #### [facility] [address] [place], [address] TIBC 318 ug/dL Normal 250-450 [facility] Comment on above: Performed By: #### L 100.0100, L500.4100, L501.5200, L500.4050, L501.9520 #### [facility] [address] [place], [address] (265) UIBC 206 ug/dL Low 228-428 [facility] Comment on above: Performed By: #### L 100.0100, L500.4100, L501.5200, L500.4050, L501.9520 #### [facility] [address] [place], [place], [id number] Laboratory - Miscellaneous t estsOrdered By: Agusto North on 08-15-2024 Service comment (Unsp spec) [Interp] Comment . [facility] Comment on above: Levels of Specific I gE Class Description of Class ----- < 0.10 0 Negative 0.10 - 0.31 0/I Equivocal/Low 0.32 - 0.55 I Low 0.56 - 1.40 II Moderate 1.41 - 3.90 III High 3.91 - 19.00 IV Very High 19.01 - 100.00 V Very High >100.00 Very High No Panel InformationOrdered By: Agusto North on 08-15-2024 Addendum Document Comment . [facility] Comment on above: Protein electrophore sis scan will follow via computer,mail, or blood collector delivery. Hepatitis C Antibody Comment Comment . [facility] Comment on above: Not infected with HC V unless early or acute infection issuspected (which may be delayed in an immunocompromisedindividual), or other evidence exists to indicate HCVinfection. HIV (1&2) Antibody Non-Reactive Nonreactive [facility] Comment on above: Non-ReactiveReactive Repeatedly reactive samples must be confirmed according to CDC recommended confirmatory algorithms. The subresults for either HIVAG or AHIV can be used as an aid in the selection of the confirmation algorithm for reactive samples.Send out specimens with Reactive results to [facility] for confirmation.Order the HIV antibody detection and differentiation: #[id number] Unsaturated Iron Binding Capacity 206 ug/dL Low 228-428 [facility] Qualitative QuantiFERON-TB g old in tube testOrdered By: Agusto North on 08-15-2024 M. tuberculosis tuberculin stim IFN-g Ql (Bld) [facility] Comment on above: Test not performedTe st not performed. Insufficient specimen to perform orcomplete analysis. Serum DNA double strand anti body assay (units/volume)Ordered By: Agusto North on 08-15-2024 DNA double strand Ab Qn (S) [IU]/mL 0-9 [facility] Comment on above: Negative <5 Equivoca l 5 - 9 Positive >9 Serum Scl-70 antibody assay (units/volume)Ordered By: Agusto North on 08-15-2024 SCL-70 extractable nuclear Ab Qn (S) [facility] Comment on above: Test not performed SCL-70 extractable nuclear Ab Qn (S) <0.2 AI 0.0-0.9 [facility] Comment on above: Previous reported re sult: TNP AIEdited by: BIA on 08/18/24:1408 AMENDED REPORT 08/18/24 1408 ANTISCLER previously reported as: Test not performed Serum black walnut IgE antib oral assay (units/volume)Ordered By: Agusto North on 08-15-2024 Black [place] IgE Qn (S) <0.10 kU/L Class 0 [facility] Serum clam IgE antibody assa y (units/volume)Ordered By: Agusto North on 08-15-2024 Clam IgE Qn (S) <0.10 kU/L Class 0 [facility] Serum classic neutrophil cyt oplasmic antibody assay (units/volume)Ordered By: Agusto North on 08-15-2024 Neutrophil cytoplasmic Ab.classic Qn (S) <1:20 titer Neg:<1:20 [facility] Serum codfish IgE antibody a ssay (units/volume)Ordered By: Agusto North on 08-15-2024 Codfish IgE Qn (S) <0.10 kU/L Class 0 [facility] Serum corn IgE antibody assa y (units/volume)Ordered By: Agusto North on 08-15-2024 [place] IgE Qn (S) <0.10 kU/L Class 0 [facility] Serum cow milk IgE antibody assay (units/volume)Ordered By: Agusto North on 08-15-2024 Cow milk IgE Qn (S) <0.10 kU/L Class 0 [facility] Serum egg white IgE antibody assay (units/volume)Ordered By: Agusto North on 08-15-2024 Egg white IgE Qn (S) <0.10 kU/L Class 0 [facility] Serum globulin measurement ( mass/volume)Ordered By: Agusto North on 08-15-2024 Globulin (S) [Mass/Vol] 3.8 g/dL 2.2-3.9 [facility] Serum mitochondria antibody detectionOrdered By: Agusto North on 08-15-2024 Mitochondria Ab Ql (S) <20.0 Units 0.0-20.0 [facility] Comment on above: Negative 0.0 - 20.0 Equivocal 20.1 - 24.9 Positive >24.9Mitochondrial (M2) Antibodies are found in 90-96% ofpatients with primary biliary cirrhosis. Serum or plasma IgA measurem ent (mass/volume)Ordered By: Agusto North on 08-15-2024 IgA [Mass/Vol] 290 mg/dL 90-386 [facility] Serum or plasma IgG measurem ent (mass/volume)Ordered By: Agusto North on 08-15-2024 IgG [Mass/Vol] 1834 mg/dL High 603-1613 [facility] Serum or plasma actin IgG an tibody assay (units/volume)Ordered By: Agusto North on 08-15-2024 Actin IgG Qn 9 Units 0-19 [facility] Comment on above: Negative 0 - 19 Weak positive 20 - 30 Moderate to strong positive >30 Actin Antibodies are found in 52-85% of patients with autoimmune hepatitis or chronic active hepatitis and in 22% of patients with primary biliary cirrhosis. Serum or plasma alpha 1 glob ulin measurement by electrophoresis (mass/volume)Ordered By: Agusto North on 08-15-2024 Alpha 1 globulin Elph [Mass/Vol] 0.2 g/dL 0.0-0.4 [facility] Alpha 1 globulin Elph [Mass/Vol] 0.6 g/dL 0.4-1.0 [facility] Serum or plasma beta globuli n measurement by electrophoresis (mass/volume)Ordered By: Agusto North on 08-15-2024 Beta globulin Elph [Mass/Vol] 1.1 g/dL 0.7-1.3 [facility] Serum or plasma creatine kin ase activityOrdered By: Agusto North on 08-15-2024 CK [Catalytic activity/Vol] 108 U/L 24-195 [facility] Serum or plasma ferritin sandra surement (mass/volume)Ordered By: Agusto North on 08-15-2024 Ferritin [Mass/Vol] 190 ng/mL 37-417 [facility] Serum or plasma free testost erone measurement (mass/volume)Ordered By: Agusto North on 08-15-2024 Testosterone Free [Mass/Vol] 10.63 ng/dL 5.00-21.00 [facility] Serum or plasma gamma globul in measurement by electrophoresis (mass/volume)Ordered By: Agusto North on 08-15-2024 Gamma globulin Elph [Mass/Vol] 1.9 g/dL High 0.4-1.8 [facility] Serum or plasma hepatitis B virus surface antigen detection by immunoassayOrdered By: Agusto North on 08-15-2024 HBV surface Ag IA Ql Negative Negative [facility] Serum or plasma immunoelectr ophoresis interpretation (nominal result)Ordered By: Agusto North on 08-15-2024 Interpretation IEP [Interp] Comment . [facility] Comment on above: No monoclonality det ected. Serum or plasma iron saturat ion measurement (mass fraction)Ordered By: Agusto oNrth on 08-15-2024 Iron saturation [Mass fraction] 35.0 % 9-55 [facility] Serum or plasma protein andi urement (mass/volume)Ordered By: Agusto North on 08-15-2024 Protein [Mass/Vol] 8.1 g/dL 6.0-8.5 [facility] Serum peanut IgE antibody as say (units/volume)Ordered By: Agusto North on 08-15-2024 Peanut IgE Qn (S) <0.10 kU/L Class 0 [facility] Serum perinuclear neutrophil cytoplasmic antibody titer by immunofluorescenceOrdered By: Agusto North on 08-15-2024 Neutrophil cytoplasmic Ab.perinuclear IF (S) [Titer] 1:20 titer High Neg:<1:20 [facility] Comment on above: The presence of posi tive fluorescence exhibiting P-ANCA orC-ANCA patterns alone is not specific for the diagnosis ofWegener's Granulomatosis (WG) or microscopic polyangiitis.Decisions about treatment should not be based solely onANCA IFA results. The International ANCA Group Consensusrecommends follow up testing of positive sera with both ME-3 and MPO-ANCA enzyme immunoassays. As many as 5% serumsamples are positive only by EIA. Ref. AM J Clin [id number];111:507-513. Serum soybean IgE antibody a ssay (units/volume)Ordered By: Agustopollo North on 08-15-2024 Soybean IgE Qn (S) <0.10 kU/L Class 0 [facility] Serum wheat IgE antibody ass ay (units/volume)Ordered By: Agustopollo North on 08-15-2024 Wheat IgE Qn (S) <0.10 kU/L Class 0 [facility] Testosterone, totalOrdered B y: Agusto North on 08-15-2024 Testosterone [Mass/Vol] 425 ng/dL 264-916 [facility] Comment on above: Adult male reference interval is based on a population ofhealthy nonobese males (BMI <30) between 19 and 39 yearsold. Agusto et.al. JCEM 2017,102;3323-3756. PMID:[id number]. Absolute lymphocyte countOrd ered By: Edmund Awan on 08-10-2024 Lymphocytes Auto (Unsp spec) [#/Vol] 1.70 10*3/uL 0.83-4.51 [facility] Absolute neutrophil countOrd ered By: Edmund Awan on 08-10-2024 Neutrophils (Bld) [#/Vol] 7.2 10*3/uL 2.0-7.7 [facility] Anion gap in Serum or Plasma Ordered By: Edmund Awan on 08-10-2024 Anion gap [Moles/Vol] 11 mmol/L 08-10 [facility] Automated lymphocyte count a s percentage of total leukocytesOrdered By: Edmund Awan on 08-10-2024 Lymphocytes/100 WBC Auto (Unsp spec) 16.5 % Low - [facility] BUN/creatinine ratioOrdered By: Edmund Awan on 08-10-2024 Urea nitrogen/Creatinine [Mass ratio] 15.2 mg/mg 10- [facility] Basophil percentageOrdered B y: Edmund Awan on 08-10-2024 Basophils/100 WBC (Bld) 0.7 % 0-1 [facility] Bilirubin Test strip Ql (U)O rdered By: Edmund Awan on 08-10-2024 Bilirubin Ql (U) Negative Negative [facility] Bilirubin, totalOrdered By: Edmund Awan on 08-10-2024 Bilirubin [Mass/Vol] 0.77 mg/dL 0.00-1.30 [facility] CBC W/Diff, Automatedon 07-27 Absolute Lymph 1.70 X10 3/uL Normal 0.83-4.51 [facility] Comment on above: Order Comment: Order Date: 03/23/24 Order Info: [id number] - CMP Order Info: [id number] - LIPID Order Info: [id number] - MG Order Info: [id number] - TSH Order Info: [id number] - T4F Performed By: #### L 100.0100, L500.4100, L501.5200, L500.4050, L501.9520 #### [facility] [address] [place], [place], [id number] [phone] Absolute Neut 7.2 X10 3/uL Normal 2.0-7.7 [facility] Comment on above: Order Comment: Order Date: 03/23/24 Order Info: [id number] - CMP Order Info: [id number] - LIPID Order Info: [id number] - MG Order Info: 3016-3 - TSH Order Info: 3024-7 - T4F Performed By: #### L 100.0100, L500.4100, L501.5200, L500.4050, L501.9520 #### [facility] [address] [place], [address] Basophils/100 WBC (Bld) 0.7 % Normal 0-1 [facility] Comment on above: Order Comment: Order Date: 03/23/24 Order Info: 785-1 - CMP Order Info: [id number] - LIPID Order Info: [id number] - MG Order Info: 3015-3 - TSH Order Info: 3024-7 - T4F Performed By: #### L 100.0100, L500.4100, L501.5200, L500.4050, L501.9520 #### [facility] [address] [place], [address] Eosinophils/100 WBC (Bld) 1.7 % Normal 0-5 [facility] Comment on above: Order Comment: Order Date: 03/23/24 Order Info: 0786-1 - CMP Order Info: [id number] - LIPID Order Info: [id number] - MG Order Info: 3016-3 - TSH Order Info: 3024-7 - T4F Performed By: #### L 100.0100, L500.4100, L501.5200, L500.4050, L501.9520 #### [facility] [address] [place], [address] Erythrocyte distribution width (RBC) [Ratio] 12.9 % Normal 11.6-14.6 [facility] Comment on above: Order Comment: Order Date: 03/23/24 Order Info: 0786-1 - CMP Order Info: - LIPID Order Info: [id number] - MG Order Info: 3 - TSH Order Info: 7 - T4F Performed By: #### L 100.0100, L500.4100, L501.5200, L500.4050, L501.9520 #### [facility] [address] [place], [address] Hematocrit (Bld) [Volume fraction] 48.5 % Normal 40-54 [facility] Comment on above: Order Comment: Order Date: 03/23/24 Order Info: 785-03 - CMP Order Info: - LIPID Order Info: [id number] - MG Order Info: 3015-05 - TSH Order Info: 3023-09 - T4F Performed By: #### L 100.0100, L500.4100, L501.5200, L500.4050, L501.9520 #### [facility] [address] [place], [place], [address] Hemoglobin (Bld) [Mass/Vol] 16.6 g/dL High 13.0-16.5 [facility] Comment on above: Order Comment: Order Date: 03/23/24 Order Info: 785-03 - CMP Order Info: - LIPID Order Info: [id number] - MG Order Info: 3015-05 - TSH Order Info: 3023-09 - T4F Performed By: #### L 100.0100, L500.4100, L501.5200, L500.4050, L501.9520 #### [facility] [address] [place], [place], [address] IG% 0.400 Normal 0.0-0.9 [facility] Comment on above: Order Comment: Order Date: 03/23/24 Order Info: 785-03 - CMP Order Info: 79815-8 - LIPID Order Info: [id number] - MG Order Info: 3 - TSH Order Info: 30247 - T4F Result Comment: IG% - Immature Granulocytes (promyelocytes, myelocytes and metamyelocytes) > 1% indicates that a LEFT SHIFT is Present. Performed By: #### L 100.0100, L500.4100, L501.5200, L500.4050, L501.9520 #### [facility] [address] [place], [address] Lymphocytes/100 WBC (Bld) 16.5 % Low 19-41 [facility] Comment on above: Order Comment: Order Date: 03/23/24 Order Info: 785-1 - CMP Order Info: [id number] - LIPID Order Info: [id number] - MG Order Info: 3016-3 - TSH Order Info: 3024-7 - T4F Performed By: #### L 100.0100, L500.4100, L501.5200, L500.4050, L501.9520 #### [facility] [address] [place], [address] MCH (RBC) [Entitic mass] 30.3 pg Normal 27.0-32.0 [facility] Comment on above: Order Comment: Order Date: 03/23/24 Order Info: 785- - CMP Order Info: [id number] - LIPID Order Info: [id number] - MG Order Info: 3016-3 - TSH Order Info: 3024-7 - T4F Performed By: #### L 100.0100, L500.4100, L501.5200, L500.4050, L501.9520 #### [facility] [address] [place], [address] MCHC (RBC) [Mass/Vol] 34.2 g/dL Normal 32-36 [facility] Comment on above: Order Comment: Order Date: 03/23/24 Order Info: 86-1 - CMP Order Info: [id number] - LIPID Order Info: 71307-6 - MG Order Info: 3016-3 - TSH Order Info: 3024-7 - T4F Performed By: #### L 100.0100, L500.4100, L501.5200, L500.4050, L501.9520 #### [facility] [address] [place], [address] MCV (RBC) [Entitic vol] 88.5 fL Normal 80-94 [facility] Comment on above: Order Comment: Order Date: 03/23/24 Order Info: 0786-1 - CMP Order Info: [id number] - LIPID Order Info: [id number] - MG Order Info: 3016-3 - TSH Order Info: 3024-7 - T4F Performed By: #### L 100.0100, L500.4100, L501.5200, L500.4050, L501.9520 #### [facility] [address] [place], [address] Monocytes/100 WBC (Bld) 10.8 % High 0-10 [facility] Comment on above: Order Comment: Order Date: 03/23/24 Order Info: 86-1 - CMP Order Info: 70870-8 - LIPID Order Info: 80729-2 - MG Order Info: 3016-3 - TSH Order Info: 3024-7 - T4F Performed By: #### L 100.0100, L500.4100, L501.5200, L500.4050, L501.9520 #### [facility] [address] [place], [address] Neutrophils/100 WBC (Bld) 69.9 % Normal 47-70 [facility] Comment on above: Order Comment: Order Date: 03/23/24 Order Info: 0786-1 - CMP Order Info: 65548-2 - LIPID Order Info: 66610-8 - MG Order Info: 3016-3 - TSH Order Info: 3024-7 - T4F Performed By: #### L 100.0100, L500.4100, L501.5200, L500.4050, L501.9520 #### [facility] [address] [place], [address] Nucleated RBC (Bld) [#/Vol] 0 10*3/uL Normal 0-5 [facility] Comment on above: Order Comment: Order Date: 03/23/24 Order Info: 0786-1 - CMP Order Info: 20624-4 - LIPID Order Info: [id number] - MG Order Info: 3015-3 - TSH Order Info: 3024-7 - T4F Performed By: #### L 100.0100, L500.4100, L501.5200, L500.4050, L501.9520 #### [facility] [address] [place], [address] Platelet mean volume (Bld) [Entitic vol] 12.0 fL Normal 6.2-12.0 [facility] Comment on above: Order Comment: Order Date: 03/23/24 Order Info: 785-1 - CMP Order Info: 54749-1 - LIPID Order Info: [id number] - MG Order Info: 3015-3 - TSH Order Info: 3024-7 - T4F Performed By: #### L 100.0100, L500.4100, L501.5200, L500.4050, L501.9520 #### [facility] [address] [place], [address] Platelets (Bld) [#/Vol] 258 10*3/uL Normal 150-450 [facility] Comment on above: Order Comment: Order Date: 03/23/24 Order Info: 0786-1 - CMP Order Info: [id number] - LIPID Order Info: 90424-3 - MG Order Info: 301-3 - TSH Order Info: 3024-7 - T4F Performed By: #### L 100.0100, L500.4100, L501.5200, L500.4050, L501.9520 #### [facility] [address] [place], [address] RBC (Bld) [#/Vol] 5.48 10*6/uL Normal 4.6-6.2 [facility] Comment on above: Order Comment: Order Date: 03/23/24 Order Info: 0786-1 - CMP Order Info: [id number] - LIPID Order Info: 78978-7 - MG Order Info: 3015-3 - TSH Order Info: 302-7 - T4F Performed By: #### L 100.0100, L500.4100, L501.5200, L500.4050, L501.9520 #### [facility] [address] [place], [address] RDW SD 40.8 fl Normal 35.1-43.9 [facility] Comment on above: Order Comment: Order Date: 03/23/24 Order Info: 07-1 - CMP Order Info: - LIPID Order Info: [id number] - MG Order Info: 3 - TSH Order Info: 7 - T4F Performed By: #### L 100.0100, L500.4100, L501.5200, L500.4050, L501.9520 #### [facility] [address] [place], [address] WBC (Bld) [#/Vol] 10.3 10*3/uL Normal 4.4-11.0 [facility] Comment on above: Order Comment: Order Date: 03/23/24 Order Info: 0786-1 - CMP Order Info: 18808-1 - LIPID Order Info: 72871-0 - MG Order Info: 63 - TSH Order Info: 302-7 - T4F Performed By: #### L 100.0100, L500.4100, L501.5200, L500.4050, L501.9520 #### [facility] [address] [place], [address] Calculated very low density lipoprotein (VLDL) cholesterol measurementOrdered By: Edmund Awan on 08-10-2024 Calculated very low density lipoprotein (VLDL) cholesterol measurement 14 mg/dL 5-40 [facility] Carbon dioxide, total [Moles /volume] in Central venous bloodOrdered By: Edmund Awan on 08-10-2024 CO2 [Moles/Vol] 27.5 mmol/L 21.0-32.0 [facility] Chloride assayOrdered By: Radha Awan on 08-10-2024 Chloride [Moles/Vol] 102 mmol/L 98-108 [facility] Metabolic Prof ilon 08-10-2024 Albumin [Mass/Vol] 4.5 g/dL Normal 3.5-5.0 [facility] Comment on above: Order Comment: Order Date: 03/23/24 Order Info: 86-1 - CMP Order Info: 00516-2 - LIPID Order Info: [id number] - MG Order Info: 3016-3 - TSH Order Info: 3024-7 - T4F Performed By: #### L 100.0100, L500.4100, L501.5200, L500.4050, L501.9520 #### [facility] [address] [place], [address] Albumin/Globulin [Mass ratio] 1.3 {ratio} Normal 0.9-2.4 [facility] Comment on above: Order Comment: Order Date: 03/23/24 Order Info: 785-1 - CMP Order Info: 02593-1 - LIPID Order Info: [id number] - MG Order Info: 3016-3 - TSH Order Info: 3024-7 - T4F Performed By: #### L 100.0100, L500.4100, L501.5200, L500.4050, L501.9520 #### [facility] [address] [place], [address] ALK PHOS 91 U/L Normal 40-129 [facility] Comment on above: Order Comment: Order Date: 03/23/24 Order Info: 86-1 - CMP Order Info: [id number] - LIPID Order Info: [id number] - MG Order Info: 3016-3 - TSH Order Info: 3024-7 - T4F Performed By: #### L 100.0100, L500.4100, L501.5200, L500.4050, L501.9520 #### [facility] [address] [place], [address] ALT [Catalytic activity/Vol] 82 U/L High <=46 [facility] Comment on above: Order Comment: Order Date: 03/23/24 Order Info: 0786-1 - CMP Order Info: 86620-1 - LIPID Order Info: [id number] - MG Order Info: 3016-3 - TSH Order Info: 3024-7 - T4F Performed By: #### L 100.0100, L500.4100, L501.5200, L500.4050, L501.9520 #### [facility] [address] [place], [address] AST [Catalytic activity/Vol] 43 U/L High <=37 [facility] Comment on above: Order Comment: Order Date: 03/23/24 Order Info: 86-1 - CMP Order Info: [id number] - LIPID Order Info: 11138-3 - MG Order Info: 3016-3 - TSH Order Info: 3024-7 - T4F Performed By: #### L 100.0100, L500.4100, L501.5200, L500.4050, L501.9520 #### [facility] [address] [place], [address] Bilirubin [Mass/Vol] 0.77 mg/dL Normal 0.00-1.30 [facility] Comment on above: Order Comment: Order Date: 03/23/24 Order Info: 86-1 - CMP Order Info: 03054-2 - LIPID Order Info: [id number] - MG Order Info: 3016-3 - TSH Order Info: 3024-7 - T4F Performed By: #### L 100.0100, L500.4100, L501.5200, L500.4050, L501.9520 #### [facility] [address] [place], [address] BUN/CRE 15.2 RATIO Normal 10-20 [facility] Comment on above: Order Comment: Order Date: 03/23/24 Order Info: 0786-1 - CMP Order Info: [id number] - LIPID Order Info: [id number] - MG Order Info: 301-3 - TSH Order Info: 3024-7 - T4F Performed By: #### L 100.0100, L500.4100, L501.5200, L500.4050, L501.9520 #### [facility] [address] [place], [address] Calcium [Mass/Vol] 9.8 mg/dL Normal 7.6-11.0 [facility] Comment on above: Order Comment: Order Date: 03/23/24 Order Info: 785-1 - CMP Order Info: 28162-7 - LIPID Order Info: 70042-2 - MG Order Info: 3013 - TSH Order Info: 3024-7 - T4F Performed By: #### L 100.0100, L500.4100, L501.5200, L500.4050, L501.9520 #### [facility] [address] [place], [address] Chloride [Moles/Vol] 102 mmol/L Normal 98-108 [facility] Comment on above: Order Comment: Order Date: 03/23/24 Order Info: 785-1 - CMP Order Info: 25560-3 - LIPID Order Info: 48930-0 - MG Order Info: 3016-3 - TSH Order Info: 3024-7 - T4F Performed By: #### L 100.0100, L500.4100, L501.5200, L500.4050, L501.9520 #### [facility] [address] [place], [address] CO2 [Moles/Vol] 27.5 mmol/L Normal 21.0-32.0 [facility] Comment on above: Order Comment: Order Date: 03/23/24 Order Info: 86-1 - CMP Order Info: 00118-7 - LIPID Order Info: [id number] - MG Order Info: 3016-3 - TSH Order Info: 3024-7 - T4F Performed By: #### L 100.0100, L500.4100, L501.5200, L500.4050, L501.9520 #### [facility] [address] [place], [address] Creatinine [Mass/Vol] 1.05 mg/dL Normal 0.70-1.20 [facility] Comment on above: Order Comment: Order Date: 03/23/24 Order Info: 86-1 - CMP Order Info: [id number] - LIPID Order Info: 93347-8 - MG Order Info: 3016-3 - TSH Order Info: 3027 - T4F Performed By: #### L 100.0100, L500.4100, L501.5200, L500.4050, L501.9520 #### [facility] [address] [place], [place], [address] GAP 11 Normal 5-15 [facility] Comment on above: Order Comment: Order Date: 03/23/24 Order Info: 785-1 - CMP Order Info: 92783-5 - LIPID Order Info: [id number] - MG Order Info: 3 - TSH Order Info: 7 - T4F Performed By: #### L 100.0100, L500.4100, L501.5200, L500.4050, L501.9520 #### [facility] [address] [place], [place], [address] GFR/1.73 sq M.predicted among non-blacks MDRD (S/P/Bld) [Vol rate/Area] 89 mL/min/{1.73_m2} Normal >60 [facility] Comment on above: Order Comment: Order Date: 03/23/24 Order Info: 86-1 - CMP Order Info: 16917-9 - LIPID Order Info: 87425-1 - MG Order Info: 3016-3 - TSH Order Info: 3024-7 - T4F Result Comment: mL/m in/1.73m2 CKD-EPI Creatinine Equation (2020) Performed By: #### L 100.0100, L500.4100, L501.5200, L500.4050, L501.9520 #### [facility] [address] [place], [address] Globulin (S) [Mass/Vol] 3.6 g/dL Normal 2.2-4.2 [facility] Comment on above: Order Comment: Order Date: 03/23/24 Order Info: 0786-1 - CMP Order Info: 31482-9 - LIPID Order Info: 24255-1 - MG Order Info: 3016-3 - TSH Order Info: 3024-7 - T4F Performed By: #### L 100.0100, L500.4100, L501.5200, L500.4050, L501.9520 #### [facility] [address] [place], [address] Glucose [Mass/Vol] 93 mg/dL Normal 70-99 [facility] Comment on above: Order Comment: Order Date: 03/23/24 Order Info: 785-1 - CMP Order Info: 46037-2 - LIPID Order Info: 15235-2 - MG Order Info: 3016-3 - TSH Order Info: 3024-7 - T4F Performed By: #### L 100.0100, L500.4100, L501.5200, L500.4050, L501.9520 #### [facility] [address] [place], [address] Potassium [Moles/Vol] 4.7 mmol/L Normal 3.3-5.1 [facility] Comment on above: Order Comment: Order Date: 03/23/24 Order Info: 86-1 - CMP Order Info: 62721-2 - LIPID Order Info: [id number] - MG Order Info: 3016-3 - TSH Order Info: 3024-7 - T4F Performed By: #### L 100.0100, L500.4100, L501.5200, L500.4050, L501.9520 #### [facility] [address] [place], [address] Sodium [Moles/Vol] 140 mmol/L Normal 133-145 [facility] Comment on above: Order Comment: Order Date: 03/23/24 Order Info: 0786-1 - CMP Order Info: 37793-6 - LIPID Order Info: 62063-4 - MG Order Info: 3016-3 - TSH Order Info: 3024-7 - T4F Performed By: #### L 100.0100, L500.4100, L501.5200, L500.4050, L501.9520 #### [facility] [address] [place], [address] T PROT 8.1 g/dL Normal 5.9-8.4 [facility] Comment on above: Order Comment: Order Date: 03/23/24 Order Info: 07-1 - CMP Order Info: 35780-1 - LIPID Order Info: 88809-1 - MG Order Info: 3 - TSH Order Info: 302-7 - T4F Performed By: #### L 100.0100, L500.4100, L501.5200, L500.4050, L501.9520 #### [facility] [address] [place], [address] Urea nitrogen [Mass/Vol] 16 mg/dL Normal 4-19 [facility] Comment on above: Order Comment: Order Date: 03/23/24 Order Info: 0786-1 - CMP Order Info: 89547-3 - LIPID Order Info: 82024-7 - MG Order Info: 3016-3 - TSH Order Info: 3024-7 - T4F Performed By: #### L 100.0100, L500.4100, L501.5200, L500.4050, L501.9520 #### [facility] [address] [place], [address] Eosinophil percentageOrdered By: Edmund Awan on 08-10-2024 Eosinophils/100 WBC (Bld) 1.7 % 0-5 [facility] Erythrocyte distribution wid th ratioOrdered By: Edmund Awan on 08-10-2024 Erythrocyte distribution width (RBC) [Ratio] 12.9 % 11.6-14.6 [facility] Erythrocyte distribution wid th standard deviationOrdered By: Edmund Awan on 08-10-2024 Erythrocyte distribution width (RBC) [Ratio] 40.8 fl 35.1-43.9 [facility] Glomerular filtration rate ( GFR) estimation/1.73 sq m using serum, plasma, or whole bOrdered By: Edmund Awan on 08-10-2024 GFR/1.73 sq M.predicted among non-blacks MDRD (S/P/Bld) [Vol rate/Area] 89 mL/min/{1.73_m2} >60 [facility] Comment on above: mL/min/1.73m2 CKD-EP I Creatinine Equation (2020) Hematocrit Auto (Bld) [Volum e fraction]Ordered By: Edmund Awan on 08-10-2024 Hematocrit (Bld) [Volume fraction] 48.5 % 40-54 [facility] Hemoglobin measurementOrdere d By: Edmund Awan on 08-10-2024 Hemoglobin (Bld) [Mass/Vol] 16.6 g/dL High 13.0-16.5 [facility] Immature granulocytes/100 WB C Auto (Bld)Ordered By: Edmund Awan on 08-10-2024 Immature granulocytes/100 WBC (Bld) 0.400 % 0.0-0.9 [facility] Comment on above: IG% - Immature Granu locytes (promyelocytes, myelocytes and metamyelocytes) > 1% indicates that a LEFT SHIFT is Present. Ketones Test strip Ql (U)Ord ered By: Edmund Awan on 08-10-2024 Ketones Ql (U) Negative Negative [facility] LDL calc ser/plasOrdered By: Edmund Awan on 08-10-2024 Cholesterol in LDL [Mass/Vol] 40 mg/dL [facility] Comment on above: Muqhsmpcrd=768-397 m g/dL & Higher Hvbf=530 mg/dL or greater Laboratory - Chemistry and C hemistry - challengeOrdered By: Edmund Awan on 08-10-2024 AST [Catalytic activity/Vol] 43 U/L High <38 [facility] Lipid Profileon 08-10-2024 CHOL:HDL 2.04 Normal [facility] Comment on above: Order Comment: Order Date: 03/23/24 Order Info: 785-1 - CMP Order Info: [id number] - LIPID Order Info: 72377-3 - MG Order Info: 3 - TSH Order Info: 3023-09 T4F Performed By: #### L 100.0100, L500.4100, L501.5200, L500.4050, L501.9520 #### [facility] [address] [place], [place], [address] Cholesterol [Mass/Vol] 105 mg/dL Normal <=200 [facility] Comment on above: Order Comment: Order Date: 03/23/24 Order Info: 785- - CMP Order Info: [id number] - LIPID Order Info: [id number] - MG Order Info: 3 - TSH Order Info: 3023-09 - T4F Result Comment: Chol esterol level, Desirable <200 mg/dL Borderline high cholesterol 200-239 mg/dL High cholesterol >=240 mg/dL Recommendations of the NCEP Adult Treatment Panel for the following risk-cutoff thresholds for the [place] population. Performed By: #### L 100.0100, L500.4100, L501.5200, L500.4050, L501.9520 #### [facility] [address] [place], [address] Cholesterol in HDL [Mass/Vol] 51 mg/dL Normal [facility] Comment on above: Order Comment: Order Date: 03/23/24 Order Info: 785-1 - CMP Order Info: 32736-7 - LIPID Order Info: 10703-1 - MG Order Info: 3 - TSH Order Info: 3023-09 - T4F Result Comment: [facility] Cholesterol Education Program (NCEP) guidelines: <40 mg/dL: Low HDL-cholesterol (major risk factor for CHD) >= 60 mg/dL: High HDL-cholesterol (negative risk factor for CHD) HDL-cholesterol is affected by a number of factors, e.g. smoking, exercise, hormones, sex and age. Performed By: #### L 100.0100, L500.4100, L501.5200, L500.4050, L501.9520 #### [facility] [address] [place], [address] Cholesterol in LDL [Mass/Vol] 40 mg/dL Normal [facility] Comment on above: Order Comment: Order Date: 03/23/24 Order Info: 86-1 - CMP Order Info: 10817-7 - LIPID Order Info: 23827-4 - MG Order Info: 3 - TSH Order Info: 7 - T4F Result Comment: Bord tjnitk=240-539 mg/dL Higher Bwxa=230 mg/dL or greater Performed By: #### L 100.0100, L500.4100, L501.5200, L500.4050, L501.9520 #### [facility] [address] [place], [address] Cholesterol in VLDL [Mass/Vol] 14 mg/dL Normal 5-40 [facility] Comment on above: Order Comment: Order Date: 03/23/24 Order Info: 785- - CMP Order Info: - LIPID Order Info: [id number] - MG Order Info: 3 - TSH Order Info: 7 - T4F Performed By: #### L 100.0100, L500.4100, L501.5200, L500.4050, L501.9520 #### [facility] [address] [place], [address] Triglyceride [Mass/Vol] 70 mg/dL Normal [facility] Comment on above: Order Comment: Order Date: 03/23/24 Order Info: 785-1 - CMP Order Info: 72688-0 - LIPID Order Info: 97574-0 - MG Order Info: 3013 - TSH Order Info: 3027 - T4F Result Comment: The drugs N-Acetylcysteine and Metamizole may falsely depress this assay. Normal range: <150 mg/dL Borderline High: 150-199 mg/dL High: 200-499 mg/dL Very High: >500 mg/dL Performed By: #### L 100.0100, L500.4100, L501.5200, L500.4050, L501.9520 #### [facility] [address] [place], [address] MCV (mean corpuscular volume ) determinationOrdered By: Edmund Awan on 08-10-2024 MCV (RBC) [Entitic vol] 88.5 fL 80-94 [facility] Mean corpuscular hemoglobin (MCH) determinationOrdered By: Edmund Awan on 08-10-2024 MCH (RBC) [Entitic mass] 30.3 pg 27.0-32.0 [facility] Mean corpuscular hemoglobin concentration (MCHC) determinationOrdered By: Edmund Awan on 08-10-2024 MCHC (RBC) [Mass/Vol] 34.2 g/dL 32-36 [facility] Mean platelet volume determi nationOrdered By: Edmund Awan on 08-10-2024 Platelet mean volume (Bld) [Entitic vol] 12.0 fL 6.2-12.0 [facility] Microscopic analysis of urin e for red blood cells (RBC)Ordered By: Edmund Awan on 08-10-2024 Microscopic analysis of urine for red blood cells (RBC) 0 SEEN /hpf 0- [facility] Monocyte percentageOrdered B y: Edmund Awan on 08-10-2024 Monocytes/100 WBC (Bld) 10.8 % High 0-10 [facility] Mucus LM Ql (Urine sed)Order ed By: Edmund Awan on 08-10-2024 Mucus Ql (Urine sed) 0 SEEN /hpf [facility] Neutrophil percentageOrdered By: Edmund Awan on 08-10-2024 Neutrophils/100 WBC (Bld) 69.9 % 47-70 [facility] Nitrite Test strip Ql (U)Ord ered By: Edmund Awan on 08-10-2024 Nitrite Ql (U) Negative Negative [facility] Nucleated red blood cell per centageOrdered By: Edmund Awan on 08-10-2024 Nucleated RBC/100 WBC (Bld) [Ratio] 0 % 0- [facility] PSA,Total - Annual Screenon 08-10-2024 PSA,TOT SCREEN 0.56 ng/mL Normal 0.02-4.00 [facility] Comment on above: Order Comment: Order Date: 03/23/24 Order Info: 0786-1 - CMP Order Info: [id number] - LIPID Order Info: [id number] - MG Order Info: 3016-3 - TSH Order Info: 3024-7 - T4F Result Comment: This test was performed using the [employer] tPSA method. Measured values of a patient??sample can vary depending on the testing procedure used. PSA values determined on patient samples by different testing procedures cannot be used interchangeably. If there is a change in PSA assays while monitoring therapy, sequential testing should be performed to confirm baseline values. Performed By: #### L 100.0100, L500.4100, L501.5200, L500.4050, L501.9520 #### [facility] [place], [address] Platelet countOrdered By: Radha Awan on 08-10-2024 Platelets (Bld) [#/Vol] 258 10*3/uL 150-450 [facility] Potassium measurement (mass/ volume)Ordered By: Edmund Awan on 08-10-2024 Potassium (Unsp spec) [Mass/Vol] 4.7 mmol/L 3.3-5.1 [facility] Protein Test strip Ql (U)Ord ered By: Edmund Awan on 08-10-2024 Protein Ql (U) 15 mg/dl High Negative [facility] RBC Auto (Bld) [#/Vol]Ordere d By: Edmund Awan on 08-10-2024 RBC (Bld) [#/Vol] 5.48 10*6/uL 4.6-6.2 [facility] Screening total cholesterol/ high density lipoprotein (HDL) cholesterol ratioOrdered By: Edmund Awan on 08-10-2024 Cholesterol.total/Choles terol in HDL [Mass ratio] 2.04 {ratio} [facility] Serum creatinine measurement (mass/volume)Ordered By: Edmund Awan on 08-10-2024 Creatinine [Mass/Vol] 1.05 mg/dL 0.70-1.20 [facility] Serum globulin measurementOr dered By: Edmund Awan on 08-10-2024 Globulin (S) [Mass/Vol] 3.6 g/dL 2.2-4.2 [facility] Serum glucose measurement (m ass/volume)Ordered By: Edmund Awan on 08-10-2024 Glucose [Mass/Vol] 93 mg/dL 70-99 [facility] Serum or plasma alanine thomason otransferase (ALT) measurementOrdered By: Edmund Awan on 08-10-2024 ALT [Catalytic activity/Vol] 82 U/L High <47 [facility] Serum or plasma albumin andi urement (mass/volume)Ordered By: Edmund Awan on 08-10-2024 Albumin [Mass/Vol] 4.5 g/dL 3.5-5.0 [facility] Serum or plasma albumin/glob ulin mass ratioOrdered By: Edmund Awan on 08-10-2024 Albumin/Globulin [Mass ratio] 1.3 {ratio} 0.9-2.4 [facility] Serum or plasma alkaline roger sphatase measurementOrdered By: Edmund Awan on 08-10-2024 ALP [Catalytic activity/Vol] 91 U/L 40-129 [facility] Serum or plasma calcium andi urement (mass/volume)Ordered By: Edmund Awan on 08-10-2024 Calcium [Mass/Vol] 9.8 mg/dL 7.6-11.0 [facility] Serum or plasma cholesterol in HDL measurement (mass/volume)Ordered By: Edmund Awan on 08-10-2024 Cholesterol in HDL [Mass/Vol] 51 mg/dL >40 [facility] Comment on above: National Cholesterol Education Program (NCEP) guidelines:<40 mg/dL: Low HDL-cholesterol (major risk factor for CHD)>= 60 mg/dL: High HDL-cholesterol (negative risk factor for CHD)HDL-cholesterol is affected by a number of factors, e.g. smoking, exercise, hormones, sex and age. Serum or plasma cholesterol measurement (mass/volume)Ordered By: Edmund Awan on 08-10-2024 Cholesterol [Mass/Vol] 105 mg/dL <201 [facility] Comment on above: Cholesterol level, D esirable <200 mg/dLBorderline high cholesterol 200-239 mg/dLHigh cholesterol >=240 mg/dLRecommendations of the NCEP Adult Treatment Panel for the following risk-cutoff thresholds for the [place] Vincent[place] population. Serum or plasma urea nitroge n measurement (mass/volume)Ordered By: Edmund Awan on 08-10-2024 Urea nitrogen [Mass/Vol] 16 mg/dL 4-19 [facility] Sodium levelOrdered By: Edmund Awan on 08-10-2024 Sodium [Moles/Vol] 140 mmol/L 133-145 [facility] Squamous epithelial cells de tection in urine sediment by light microscopyOrdered By: Edmund Awan on 08-10-2024 Epithelial cells.squamous LM Ql (Urine sed) 0 SEEN /hpf 0-5 [facility] T4 Free Directon 08-10-2024 T4 FREE DIRECT 1.30 ng/dL Normal 0.76-1.46 [facility] Comment on above: Order Comment: Order Date: 03/23/24 Order Info: 0786-1 - CMP Order Info: [id number] - LIPID Order Info: [id number] - MG Order Info: 3016-3 - TSH Order Info: 3024-7 - T4F Performed By: #### L 100.0100, L500.4100, L501.5200, L500.4050, L501.9520 #### [facility] [place], [address] T4 freeOrdered By: Edmund armijo on 08-10-2024 Free T4 [Mass/Vol] 1.30 ng/dL 0.76-1.46 [facility] TSH DL <= 0.005 mIU/L QnOrde red By: Edmund Awan on 08-10-2024 TSH Qn 4.920 uIU/mL High 0.300-4.200 [facility] Thyroid Stim Hormone (TSH)on 08-10-2024 TSH 4.920 uIU/mL High 0.300-4.200 [facility] Comment on above: Order Comment: Order Date: 03/23/24 Order Info: 0786-1 - CMP Order Info: [id number] - LIPID Order Info: [id number] - MG Order Info: 3 - TSH Order Info: [id number] - T4F Performed By: #### L 100.0100, L500.4100, L501.5200, L500.4050, L501.9520 #### [facility] [address] [place], [place], [address] Total proteinOrdered By: Alirio Awan on 08-10-2024 Protein [Mass/Vol] 8.1 g/dL 5.9-8.4 [facility] Triglycerides measurementOrd ered By: Edmund Awan on 08-10-2024 Triglyceride [Mass/Vol] 70 mg/dL <199 [facility] Comment on above: The drugs N-Acetylcy steine and Metamizole may falsely depress this assay. Normal range: <150 mg/dLBorderline High: 150-199 mg/dLHigh: 200-499 mg/dLVery High: >500 mg/dL Urinalysis, Completeon 08-10 BACTERIA 0 SEEN Normal None Seen [facility] Comment on above: Order Comment: Order Date: 03/23/24 Order Info: 0786-1 - CMP Order Info: [id number] - LIPID Order Info: [id number] - MG Order Info: 3 - TSH Order Info: 7 - T4F Performed By: #### L 100.0100, L500.4100, L501.5200, L500.4050, L501.9520 #### [facility] [address] [place], [place], [address] EPI,SQUAMOUS 0 SEEN Normal 0-5 [facility] Comment on above: Order Comment: Order Date: 03/23/24 Order Info: 0786-1 - CMP Order Info: [id number] - LIPID Order Info: [id number] - MG Order Info: 3 - TSH Order Info: 30247 - T4F Performed By: #### L 100.0100, L500.4100, L501.5200, L500.4050, L501.9520 #### [facility] [address] [place], [address] Mucus Ql (Urine sed) 0 SEEN Normal [facility] Comment on above: Order Comment: Order Date: 03/23/24 Order Info: 0786-1 - CMP Order Info: [id number] - LIPID Order Info: [id number] - MG Order Info: 3016-3 - TSH Order Info: 3024-7 - T4F Performed By: #### L 100.0100, L500.4100, L501.5200, L500.4050, L501.9520 #### [facility] [address] [place], [address] RBC 0 SEEN Normal 0-5 [facility] Comment on above: Order Comment: Order Date: 03/23/24 Order Info: 07-1 - CMP Order Info: [id number] - LIPID Order Info: [id number] - MG Order Info: 3016-3 - TSH Order Info: 3024-7 - T4F Performed By: #### L 100.0100, L500.4100, L501.5200, L500.4050, L501.9520 #### [facility] [address] [place], [address] WBC 0 SEEN Normal 0-[address] [place] [address] Comment on above: Order Comment: Order Date: 03/23/24 Order Info: 0786-1 - CMP Order Info: [id number] - LIPID Order Info: [id number] - MG Order Info: 3016-3 - TSH Order Info: 3024-7 - T4F Performed By: #### L 100.0100, L500.4100, L501.5200, L500.4050, L501.9520 #### [facility] [address] [place], [address] Urine clarityOrdered By: Alirio Awan on 08-10-2024 Clarity (U) Clear Clear [facility] Urine color determinationOrd ered By: Edmund Awan on 08-10-2024 Color (U) Yellow Yellow [facility] Urine glucose detectionOrder ed By: Edmund Awan on 08-10-2024 Glucose Ql (U) Normal mg/dl Normal [facility] Urine leukocyte esterase det ection by dipstickOrdered By: Edmund Awan on 08-10-2024 Leukocyte esterase Test strip Ql (U) Negative Negative [facility] Urine pHOrdered By: Edmund funes on 08-10-2024 pH (U) 5.0 [pH] 5.0 - 8.0 [facility] Urine sediment bacteria coun t by microscopy (number/high power field)Ordered By: Edmund Awan on 08-10-2024 Bacteria LM.HPF (Urine sed) [#/Area] 0 /[HPF] None Seen [facility] Urine specific gravity measu rementOrdered By: Edmund Awan on 08-10-2024 Specific gravity (U) [Rel density] 1.015 1.002-1.030 [facility] Urine urobilinogen measureme ntOrdered By: Edmund Awan on 08-10-2024 Urobilinogen Ql (U) Normal mg/dl Normal [facility] White blood cell (WBC) count Ordered By: Edmund Awan on 08-10-2024 WBC (Bld) [#/Vol] 10.3 10*3/uL 4.4-11.0 [facility] White blood cell countOrdere d By: Edmund Awan on 08-10-2024 White blood cell count 0 SEEN /hpf 0-5 [facility] Duplex ultrasound of renal a rtery reportOrdered By: Jason Krishna on 06-05-2024 Study report [facility] [address] [place] [address] Renal Artery Duplex Ultrasound 06/02/24 0910 MR#: [id number] Acct: [id number] Name: TIPDORENE C Rep #:[id number] : 1980 44 From: Jason Cast Attending Dr: Dr. Edmund Awan MD Status: REG CLI Ordering Dr: Edmund Awan MD Date: 06/02/24 Location: CVS Sex: M C Admitted: Reason For Study Reason For Study: HTN Right Renal Artery Left Renal Artery Right renal artery ostium 83/27 RSV/EDV. Left renal artery ostium 67/21 PSV/EDV. Right renal artery proximal 92/25 Left renal artery proximal PSV/EDV PSV/EDV. 122/32 . Right renal artery mid 178/57 PSV/EDV. Left renal artery mid 181/45 PSV/EDV . Right renal artery distal 93/24 PSV/EDV. Left renal artery distal 66/23 PSV/EDV. Right Renal Parenchyma Left Renal Parenchyma Upper Pole Medula 51/17 PSV/EDV. Left upper pole medulla 51/17 PSV/EDV . Right upper pole medulla EDR 0.33 . Left upper pole medulla EDR 0.33 . Right upper pole medulla R.I. 0.66 . Left upper pole medulla R.I. 0.68 . Upper Maurice Cortx 27/12 PSV/EDV. UPCortex 21/8 PSV/EDV. Right upper pole cortex EDR 0.44 . Left upper pole cortex EDR 0.38 . Right upper pole cortex R.I. 0.57 . Left upper pole cortex R.I. 0.60 . Right lower Pole medulla 33/12 PSV/EDV . Left lower Pole medulla 37/12 PSV/EDV . Right lower pole medulla EDR 0.36 . Left lower pole medulla EDR 0.32 . Right lower pole medulla R.I. 0.64 . Left lower pole medulla R.I. 0.67 . Lower Pole Cortex 26/9 PSV/EDV. Lower Pole Cortx 21/8 PSV/EDV. Right lower pole cortex EDR 0.35 . Left lower pole cortex EDR 0.38 . Right lower pole cortex R.I. 0.65 . Left lower pole cortex R.I. 0.60 . Right Renal Hilar Left Renal Hilar Right Hilar avg 108/35 PSV/EDV. LTHilar avg 60/23 PSV/EDV . Right hilar acceleration time 50 m/sec. Left hilar acceleration time 40 m/sec. Right Renal Dimensions Left Renal Dimensions Right kidney size 13.0 cm . Left kidney size 12.77 cm . Right cortical dimension 1.93 cm . Left cortical dimension 1.95 cm . Aorta Proximal abdominal aorta 1.81cm x 2.06 cm . Proximal abdominal aorta peak systolic velocity is 109 cm/sec . Distal abdominal aorta 1.77cm x 1.97 cm . Distal abdominal aorta peak systolic velocityis 55 cm/sec . VL/Renal Artery Duplex Ultrasound Interpretation Summary Right renal artery patent with normal velocities and no evidence of stenosis. Left renal artery patent with normal velocities and no evidence of stenosis. Right renal vein patent. Left renal vein patent. Right kidney normal in size. Left kidney normal in size. Ordering Physician: Edmund Awan Referring Physician: Edmund Awan Performed By: Lola Sue, MARLENI, RVT 06/05/24 0849 Date _ Jason Krishna MD CC: Dr. Edmund Awan MD ~ Date Dictated: 06/02/24909 Date Transcribed: 06/05/24848 Runner Man: Signed [facility] Work Phone: Renal Artery Duplex Ultrasou ndon 06-02-2024 Renal Artery Duplex Ultrasound [facility] [address] [place] [address] Renal Artery Duplex Ultrasound 06/02/24909 MR#: [id number] Acct: [id number] Name: DORENE VÁZQUEZ Rep #: [id number] : 1980 44 From: Jason Krishna MD Attending Dr: Dr. Edmund Awan MD Status: R EG CLI Ordering Dr: Edmund Awan MD Date: 06/02/24 Location: CVS Sex: M C Admitted: Reason For Study Reason For Study: HTN Right Renal Artery Left Renal Artery Right renal artery ostium 83/27 RSV/EDV. Left renal artery ostium 67/21 PSV/EDV. Right renal artery proximal 92/25 Left renal artery proximal PSV/EDV PSV/EDV. 122/32 . Right renal artery mid 178/57 PSV/EDV. Left renal artery mid 181/45 PSV/EDV . Right renal artery distal 93/24 PSV/EDV. Left renal artery distal 66/23 PSV/EDV. Right Renal Parenchyma Left Renal Parenchyma Upper Pole Medula 51/17 PSV/EDV. Left upper pole medulla 51/17 PSV/EDV . Right upper pole medulla EDR 0.33 . Left upper pole medulla EDR 0.33 . Right upper pole medulla R.I. 0.66 . Left upper pole medulla R.I. 0.68 . Upper Maurice Cortx 27/12 PSV/EDV. UP Cortex 21/8 PSV/EDV. Right upper pole cortex EDR 0.44 . Left upper pole cortex EDR 0.38 . Right upper pole cortex R.I. 0.57 . Left upper pole cortex R.I. 0.60 . Right lower Pole medulla 33/12 PSV/EDV . Left lower Pole medulla 37/12 PSV/EDV . Right lower pole medulla EDR 0.36 . Left lower pole medulla EDR 0.32 . Right lower pole medulla R.I. 0.64 . Left lower pole medulla R.I. 0.67 . Lower Pole Cortex 26/9 PSV/EDV. Lower Pole Cortx 21/8 PSV/EDV. Right lower pole cortex EDR 0.35 . Left lower pole cortex EDR 0.38 . Right lower pole cortex R.I. 0.65 . Left lower pole cortex R.I. 0.60 . Right Renal Hilar Left Renal Hilar Right Hilar avg 108/35 PSV/EDV. LT Hilar avg 60/23 PSV/EDV . Right hilar acceleration time 50 m/sec. Left hilar acceleration time 40 m/sec. Right Renal Dimensions Left Renal Dimensions Right kidney size 13.0 cm . Left kidney size 12.77 cm . Right cortical dimension 1.93 cm . Left cortical dimension 1.95 cm . Aorta Proximal abdominal aorta 1.81cm x 2.06 cm . Proximal abdominal aorta peak systolic velocity is 109 cm/sec . Distal abdominal aorta 1.77cm x 1.97 cm . Distal abdominal aorta peak systolic velocity is 55 cm/sec . VL/Renal Artery Duplex Ultrasound Interpretation Summary Right renal artery patent with normal velocities and no evidence of stenosis. Left renal artery patent with normal velocities and no evidence of stenosis. Right renal vein patent. Left renal vein patent. Right kidney normal in size. Left kidney normal in size. Ordering Physician: Edmund Awan Referring Physician: Edmund Awan Performed By: Lola Sue, RDCS, RVT 06/05/2449 Date Jason Krishna MD CC: Dr. Edmund Awan MD Date Dictated: 06/02/24909 Date Transcribed: 06/05/24848 Runner Man: Signed Normal [facility] 025 Kidney and Bladder [facility] Imaging Services [address] [place] [address] [id number] Kidney and Bladder MR#: [id number] Acct: [id number] Name: DORENE VÁZQUEZ Rep #: [id number] : 1980 M 43 From: Keith Padilla MD PCP: Dr. Edmund Awan MD Status: [facility] Study: Kidney and Bladder Date of Exam: 05/11/24 Exam# [id number] Ordering Dr: Edmund Awan MD EXAM: US Retroperitoneal Limited, Renal CLINICAL INDICATION: TECHNIQUE: Real-time limited ultrasound of the retroperitoneum with image documentation. COMPARISON: No relevant prior studies available. FINDINGS: RIGHT KIDNEY: Right renal cysts measuring up to 1.9 cm. No stones. No hydronephrosis. The right kidney measures 13.5 x 5.7 x 6.7 cm. LEFT KIDNEY: Unremarkable. No stones. No hydronephrosis. The left kidney measures 30.0 x 5.1 x 6.4 cm. OTHER FINDINGS: Prevoid volume 335 cc. Postvoid volume of 166 cc. US/Kidney and Bladder IMPRESSION: Urinary retention. Simple right renal cyst. Reading Location: [facility] CC: Dr. Edmund Awan MD Runner Man: Signed Normal [facility] Albumin to globulin ratioOrd ered By: Edmund Awan on 04-27-2024 Albumin/Globulin [Mass ratio] 1.0 {ratio} Normal 0.9-2.4 [facility] Comment on above: Order Comment: Order Date: 03/23/24 Order Info: 0786-1 - CMP Order Info: [id number] - LIPID Order Info: [id number] - MG Order Info: 3016-3 - TSH Order Info: 3024-7 - T4F Performed By: #### L 100.0100, L500.4100, L501.5200, L500.4050, L501.9520 #### [facility] [address] [place], [address] Bilirubin, totalOrdered By: Edmund Awan on 04-27-2024 Bilirubin [Mass/Vol] 0.70 mg/dL Normal 0.20-1.00 [facility] Comment on above: For patients on eltr ombopag therapy, use of Dimension Kermit TBIL is not recommended. Order Comment: Order Date: 03/23/24 Order Info: 0786-1 - CMP Order Info: [id number] - LIPID Order Info: [id number] - MG Order Info: 3016-3 - TSH Order Info: 3024-7 - T4F Result Comment: For patients on eltrombopag therapy, use of Dimension Kermit TBIL is not recommended. Performed By: #### L 100.0100, L500.4100, L501.5200, L500.4050, L501.9520 #### [facility] [address] [place], [address] Blood urea nitrogen (BUN)/cr eatinine ratioOrdered By: Edmund Awan on 04-27-2024 Urea nitrogen/Creatinine [Mass ratio] 19.7 mg/mg 10-20 [facility] Carbon dioxide measurementOr dered By: Edmund Awan on 04-27-2024 CO2 [Moles/Vol] 26.0 mmol/L Normal 21.0-32.0 [facility] Comment on above: Order Comment: Order Date: 03/23/24 Order Info: 86-1 - CMP Order Info: [id number] - LIPID Order Info: [id number] - MG Order Info: 301-3 - TSH Order Info: 3024-7 - T4F Performed By: #### L 100.0100, L500.4100, L501.5200, L500.4050, L501.9520 #### [facility] [address] [place], [address] Chloride measurementOrdered By: Edmund Awan on 04-27-2024 Chloride [Moles/Vol] 106 mmol/L Normal 98-107 [facility] Comment on above: Order Comment: Order Date: 03/23/24 Order Info: 86-1 - CMP Order Info: [id number] - LIPID Order Info: [id number] - MG Order Info: 301-3 - TSH Order Info: 3024-7 - T4F Performed By: #### L 100.0100, L500.4100, L501.5200, L500.4050, L501.9520 #### [facility] [address] [place], [address] Comprehensive Metabolic Prof ilon 04-27-2024 ALK P 93 U/L Normal 45-117 [facility] Comment on above: Order Comment: Order Date: 03/23/24 Order Info: 0786-1 - CMP Order Info: [id number] - LIPID Order Info: [id number] - MG Order Info: 3016-3 - TSH Order Info: 302-7 - T4F Performed By: #### L 100.0100, L500.4100, L501.5200, L500.4050, L501.9520 #### [facility] [address] [place], [place], [address] BUN/CRE 19.7 RATIO Normal 10-20 [facility] Comment on above: Order Comment: Order Date: 03/23/24 Order Info: 0786-1 - CMP Order Info: [id number] - LIPID Order Info: [id number] - MG Order Info: 3 - TSH Order Info: 7 - T4F Performed By: #### L 100.0100, L500.4100, L501.5200, L500.4050, L501.9520 #### [facility] [address] [place], [place], [address] CA,Total 9.1 mg/dL Normal 8.5-10.1 [facility] Comment on above: Order Comment: Order Date: 03/23/24 Order Info: 86-1 - CMP Order Info: [id number] - LIPID Order Info: [id number] - MG Order Info: 3 - TSH Order Info: 7 - T4F Performed By: #### L 100.0100, L500.4100, L501.5200, L500.4050, L501.9520 #### [facility] [address] [place], [address] EST GFR - AA 108 mL/min Normal >60 [facility] Comment on above: Order Comment: Order Date: 03/23/24 Order Info: 86-1 - CMP Order Info: [id number] - LIPID Order Info: [id number] - MG Order Info: 3016-3 - TSH Order Info: 3024-7 - T4F Result Comment: Afri can Vincentian GFR Calc Performed By: #### L 100.0100, L500.4100, L501.5200, L500.4050, L501.9520 #### [facility] [address] [place], [address] GAP 6 Normal 5-15 [facility] Comment on above: Order Comment: Order Date: 03/23/24 Order Info: 0786-1 - CMP Order Info: 53656-2 - LIPID Order Info: [id number] - MG Order Info: 3016-3 - TSH Order Info: 3024-7 - T4F Performed By: #### L 100.0100, L500.4100, L501.5200, L500.4050, L501.9520 #### [facility] [address] [place], [address] T PROT 8.0 g/dL Normal 6.4-8.2 [facility] Comment on above: Order Comment: Order Date: 03/23/24 Order Info: 07-1 - CMP Order Info: [id number] - LIPID Order Info: [id number] - MG Order Info: 3016-3 - TSH Order Info: 3024-7 - T4F Performed By: #### L 100.0100, L500.4100, L501.5200, L500.4050, L501.9520 #### [facility] [address] [place], [address] Comprehensive Metabolic Prof ilOrdered By: Edmund Awan on 04-27-2024 AST [Catalytic activity/Vol] 40 U/L High 15-37 [facility] Comment on above: Order Comment: Order Date: 03/23/24 Order Info: 0786-1 - CMP Order Info: [id number] - LIPID Order Info: [id number] - MG Order Info: 3016-3 - TSH Order Info: 3024-7 - T4F Performed By: #### L 100.0100, L500.4100, L501.5200, L500.4050, L501.9520 #### [facility] [address] [place], [address] Estimated glomerular filtrat ion rate (GFR) AmericanOrdered By: Edmund Awan on 04-27-2024 Estimated GFR (MDRD) Amer 108 mL/min >60 [facility] Comment on above: GFR Calc Glomerular filtration rate ( GFR) estimationOrdered By: Edmund Awan on 04-27-2024 Estimated GFR (MDRD) Non-Af Amer 89 mL/min >60 [facility] Comment on above: Non- GFR Calc GFR/1.73 sq M.predicted among non-blacks MDRD (S/P/Bld) [Vol rate/Area] 89 mL/min/{1.73_m2} Normal >60 [facility] Comment on above: Non- GFR Calc Order Comment: Order Date: 03/23/24 Order Info: 0786-1 - CMP Order Info: [id number] - LIPID Order Info: 42761-1 - MG Order Info: 3013 - TSH Order Info: 7 T4F Result Comment: Non- GFR Calc Performed By: #### L 100.0100, L500.4100, L501.5200, L500.4050, L501.9520 #### [facility] [address] [place], [place], [address] Glucose measurementOrdered B y: Edmund Awan on 04-27-2024 Glucose [Mass/Vol] 104 mg/dL Normal 74-106 [facility] Comment on above: Fasting Glucose resu lt from 100 to 125 mg/dL suggests IMPAIRED HOMEOSTASIS per A.D.A. criteria. Order Comment: Order Date: 03/23/24 Order Info: 0786-1 - CMP Order Info: [id number] - LIPID Order Info: [id number] - MG Order Info: 3015-3 - TSH Order Info: 7 - T4F Result Comment: Fast ing Glucose result from 100 to 125 mg/dL suggests IMPAIRED HOMEOSTASIS per A.D.A. criteria. Performed By: #### L 100.0100, L500.4100, L501.5200, L500.4050, L501.9520 #### [facility] [address] [place], [address] Potassium measurementOrdered By: Edmund Awan on 04-27-2024 Potassium [Moles/Vol] 3.8 mmol/L Normal 3.5-5.1 [facility] Comment on above: Order Comment: Order Date: 03/23/24 Order Info: 86-1 - CMP Order Info: [id number] - LIPID Order Info: [id number] - MG Order Info: 3016-3 - TSH Order Info: 7 - T4F Performed By: #### L 100.0100, L500.4100, L501.5200, L500.4050, L501.9520 #### [facility] [address] [place], [address] Serum anion gap measurementO rdered By: Edmund Awan on 04-27-2024 Anion gap [Moles/Vol] 6 mmol/L 5-15 [facility] Serum globulin measurementOr dered By: Edmund Awan on 04-27-2024 Globulin (S) [Mass/Vol] 4.0 g/dL Normal 2.2-4.2 [facility] Comment on above: Order Comment: Order Date: 03/23/24 Order Info: 785-03 - CMP Order Info: [id number] - LIPID Order Info: [id number] - MG Order Info: 3 - TSH Order Info: 3023-09 - T4F Performed By: #### L 100.0100, L500.4100, L501.5200, L500.4050, L501.9520 #### [facility] [address] [place], [place], [address] Serum or plasma alanine thomason otransferase (ALT) measurementOrdered By: Edmund Awan on 04-27-2024 ALT [Catalytic activity/Vol] 124 U/L High 16-61 [facility] Comment on above: Order Comment: Order Date: 03/23/24 Order Info: 86-1 - CMP Order Info: [id number] - LIPID Order Info: [id number] - MG Order Info: 3016-3 - TSH Order Info: 3027 - T4F Performed By: #### L 100.0100, L500.4100, L501.5200, L500.4050, L501.9520 #### [facility] [address] [place], [place], [address] Serum or plasma albumin andi urement (mass/volume)Ordered By: Edmund Awan on 04-27-2024 Albumin [Mass/Vol] 4.0 g/dL Normal 3.2-5.0 [facility] Comment on above: Order Comment: Order Date: 03/23/24 Order Info: 0786-1 - CMP Order Info: [id number] - LIPID Order Info: [id number] - MG Order Info: 301-3 - TSH Order Info: 3023-09 - T4F Performed By: #### L 100.0100, L500.4100, L501.5200, L500.4050, L501.9520 #### [facility] [address] [place], [place], [id number] Serum or plasma alkaline roger sphatase measurementOrdered By: Edmund Awan on 04-27-2024 ALP [Catalytic activity/Vol] 93 U/L 45-117 [facility] Serum or plasma calcium andi urement (mass/volume)Ordered By: Edmund Awan on 04-27-2024 Calcium [Mass/Vol] 9.1 mg/dL 8.5-10.1 [facility] Serum or plasma creatinine m easurement (mass/volume)Ordered By: Edmund Awan on 04-27-2024 Creatinine [Mass/Vol] 0.96 mg/dL Normal 0.70-1.30 [facility] Comment on above: The validity of the calculated GFR & GFRAA in patients over 70 years has not been determined. Clinical correlation is essential. Order Comment: Order Date: 03/23/24 Order Info: 0786-1 - CMP Order Info: [id number] - LIPID Order Info: [id number] - MG Order Info: 3016-3 - TSH Order Info: 3023-7 - T4F Result Comment: The validity of the calculated GFR GFRAA in patients over 70 years has not been determined. Clinical correlation is essential. Performed By: #### L 100.0100, L500.4100, L501.5200, L500.4050, L501.9520 #### [facility] [address] [place], [address] Serum or plasma urea nitroge n measurement (mass/volume)Ordered By: Edmund Awan on 04-27-2024 Urea nitrogen [Mass/Vol] 19 mg/dL High 7-18 [facility] Comment on above: Order Comment: Order Date: 03/23/24 Order Info: 86-1 - CMP Order Info: [id number] - LIPID Order Info: [id number] - MG Order Info: 3016-3 - TSH Order Info: 3027 - T4F Performed By: #### L 100.0100, L500.4100, L501.5200, L500.4050, L501.9520 #### [facility] [address] [place], [address] Sodium levelOrdered By: Edmund Awan on 04-27-2024 Sodium [Moles/Vol] 138 mmol/L Normal 136-145 [facility] Comment on above: Order Comment: Order Date: 03/23/24 Order Info: 86-1 - CMP Order Info: [id number] - LIPID Order Info: [id number] - MG Order Info: 3016-3 - TSH Order Info: 3024-7 - T4F Performed By: #### L 100.0100, L500.4100, L501.5200, L500.4050, L501.9520 #### [facility] [address] [place], [address] Total proteinOrdered By: Alirio Awan on 04-27-2024 Protein [Mass/Vol] 8.0 g/dL 6.4-8.2 [facility] L3410.9999on 04-25-2024 [facility] Misc. COMMENT Normal . [facility] Comment on above: Order Comment: Order Date: 03/23/24 Order Info: 0786-1 - CMP Order Info: [id number] - LIPID Order Info: 14883-2 - MG Order Info: 3016-3 - TSH Order Info: 302-7 - T4F Result Comment: Test Ordered: [id number] Anti-Th/To Ab (RDL) Test(s) 828464-Bkct-Mt/To Ab (RDL) was developed and its performance characteristics determined by [facility]. It has not been cleared or approved by the Food and Drug Administration. Anti-Th/To Ab (RDL) Negative ESECF Reference Range: Negative Performed at: [facility] [address] [place] [id number] Client Relation Specialist: Arjun Salvador MD, Phone: [phone] Performed at: [address] [id number] Client Relation Specialist: Amari Gonsales PhD, Phone: [phone] Performed By: #### L 100.0100, L500.4100, L501.5200, L500.4050, L501.9520 #### [facility] [address] [facility] [place], [address] Hemoglobin A1con 03-28-2024 HbA1c (Bld) [Mass fraction] 5.3 % Normal 3.8-5.6 [facility] Comment on above: Order Comment: Order Date: 03/23/24 Order Info: 0786-1 - CMP Order Info: 22755-9 - LIPID Order Info: [id number] - MG Order Info: 3 - TSH Order Info: 3023-09 - T4F Result Comment: Norm al < 5.7 % Prediabetic 5.7 - 6.4 % Diabetic >or= 6.5 % Please note range changes. Performed By: #### L 100.0100, L500.4100, L501.5200, L500.4050, L501.9520 #### [facility] [address] [facility] [place], [address] Hemoglobin A1c percentageOrd ered By: Edmund Awan on 03-28-2024 HbA1c (Bld) [Mass fraction] 5.3 % 3.8-5.6 [facility] Comment on above: Normal < 5.7 % Predi abetic 5.7 - 6.4 % Diabetic >or= 6.5 % Please note range changes. Thyroidon 03-27-2024 Thyroid [facility] [address] [place] [address] Thyroid MR#: [id number] Acct: [id number] Name: DORENE VÁZQUEZ Rep #: [id number] : 1980 M 43 From: Quique Oro MD PCP: Dr. Edmund Awan MD Status: [facility] Study: Thyroid Date of Exam: 03/27/24 Exam# [id number] Ordering Dr: Edmund Awan MD [id number] STUDY: THYROID ULTRASOUND REASON FOR EXAM: Male, 43 years old. THYROMEGALY felt by doctor TECHNIQUE: Ultrasound evaluation of the thyroid was performed with real-time and static alexandra-scale imaging. COMPARISON: None. FINDINGS: RIGHT LOBE: The right lobe of the thyroid gland measures 5.4 x 2.0 x 1.8 cm. There is a homogeneous echotexture. There are no demonstrated solid, cystic or complex lesions. LEFT LOBE: The left lobe of the thyroid gland measures 4.9 x 1.9 x 1.8 cm. There is a homogeneous echotexture. There are no demonstrated solid, cystic or complex lesions. ISTHMUS: The isthmus measures 4 mm thick. . The regional lymph nodes are normal. US/Thyroid IMPRESSION: Normal ultrasound examination of the thyroid. Electronically Signed: Quique Oro MD at 13:06 EST , CC: Dr. Edmund Awan MD Runner Man: Signed Normal [facility] Thyroid Peroxidase ABon -2 THYR PEROX AB 12 IU/mL Normal 0-34 [facility] Comment on above: Order Comment: Order Date: 03/23/24 Order Info: 0786-1 - CMP Order Info: 91407-5 - LIPID Order Info: [id number] - MG Order Info: 3 - TSH Order Info: 3023-09 - T4F Result Comment: Perf ormed at: - [facility] [address] [id number] Client Relation Specialist: Castillo Mujica MD, Phone: [phone] Performed at: - [facility] [id number] Client Relation Specialist: Amari Gonsales PhD, Phone: [phone] Performed By: #### L 100.0100, L500.4100, L501.5200, L500.4050, L501.9520 #### [facility] [address] [place], [address] Thyroid Stim Immunoglobon THY STIM IMMUNO <0.10 Normal 0.00-0.55 [facility] Comment on above: Order Comment: Order Date: 03/23/24 Order Info: 0786-1 - CMP Order Info: 71331-9 - LIPID Order Info: [id number] - MG Order Info: 3 - TSH Order Info: 3023-09 - T4F Performed By: #### L 100.0100, L500.4100, L501.5200, L500.4050, L501.9520 #### [facility] [address] [place], [address] Absolute neutrophil countOrd ered By: Edmund Awan on 03-23-2024 Neutrophils (Bld) [#/Vol] 5.2 10*3/uL 2.0-7.7 [facility] Albumin to globulin ratioOrd ered By: Edmund Awan on 03-23-2024 Albumin/Globulin [Mass ratio] 0.9 {ratio} 0.9-2.4 [facility] Basophil percentageOrdered B y: Edmund Awan on 03-23-2024 Basophils/100 WBC (Bld) 0.9 % 0-1 [facility] Bilirubin Test strip Ql (U)O rdered By: Edmund Lv on 03-23-2024 Bilirubin Ql (U) Negative Negative [facility] Bilirubin, totalOrdered By: Edmund Awan on 03-23-2024 Bilirubin [Mass/Vol] 0.70 mg/dL 0.20-1.00 [facility] Comment on above: For patients on eltr ombopag therapy, use of Dimension Kermit TBIL is not recommended. Blood urea nitrogen (BUN)/cr eatinine ratioOrdered By: Edmund Awan on 03-23-2024 Urea nitrogen/Creatinine [Mass ratio] 14.9 mg/mg 10- [facility] CBC W/Diff, Automatedon 02-27 Absolute Lymph 1.94 X10 3/uL Normal 0.83-4.51 [facility] Comment on above: Order Comment: Order Date: 03/23/24 Order Info: 0184-1 - CBCD Performed By: #### L 100.0100, L500.4100, L501.5200, L500.4050, L501.9520 #### [facility] [address] [place], [address] Absolute Neut 5.2 X10 3/uL Normal 2.0-7.7 [facility] Comment on above: Order Comment: Order Date: 03/23/24 Order Info: 0184-1 - CBCD Performed By: #### L 100.0100, L500.4100, L501.5200, L500.4050, L501.9520 #### [facility] [address] [place], [place], [phone] Basophils/100 WBC (Bld) 0.9 % Normal 0-1 [facility] Comment on above: Order Comment: Order Date: 03/23/24 Order Info: 0184-1 - CBCD Performed By: #### L 100.0100, L500.4100, L501.5200, L500.4050, L501.9520 #### [facility] [address] [place], [address] Eosinophils/100 WBC (Bld) 2.2 % Normal 0-5 [facility] Comment on above: Order Comment: Order Date: 03/23/24 Order Info: 0184-1 - CBCD Performed By: #### L 100.0100, L500.4100, L501.5200, L500.4050, L501.9520 #### [facility] [address] [place], [address] Erythrocyte distribution width (RBC) [Ratio] 12.7 % Normal 11.6-14.6 [facility] Comment on above: Order Comment: Order Date: 03/23/24 Order Info: 0184-1 - CBCD Performed By: #### L 100.0100, L500.4100, L501.5200, L500.4050, L501.9520 #### [facility] [address] [place], [address] Hematocrit (Bld) [Volume fraction] 48.8 % Normal 40-54 [facility] Comment on above: Order Comment: Order Date: 03/23/24 Order Info: 0184- - CBCD Performed By: #### L 100.0100, L500.4100, L501.5200, L500.4050, L501.9520 #### [facility] [address] [place], [address] Hemoglobin (Bld) [Mass/Vol] 16.4 g/dL Normal 13.0-16.5 [facility] Comment on above: Order Comment: Order Date: 03/23/24 Order Info: 0184-1 - CBCD Performed By: #### L 100.0100, L500.4100, L501.5200, L500.4050, L501.9520 #### [facility] [address] [place], [address] IG% 0.600 Normal 0.0-0.9 [facility] Comment on above: Order Comment: Order Date: 03/23/24 Order Info: 018- - CBCD Result Comment: IG% - Immature Granulocytes (promyelocytes, myelocytes and metamyelocytes) > 1% indicates that a LEFT SHIFT is Present. Performed By: #### L 100.0100, L500.4100, L501.5200, L500.4050, L501.9520 #### [facility] [address] [place], [address] Lymphocytes/100 WBC (Bld) 24.1 % Normal 19-41 [facility] Comment on above: Order Comment: Order Date: 03/23/24 Order Info: 01806-27 - CBCD Performed By: #### L 100.0100, L500.4100, L501.5200, L500.4050, L501.9520 #### [facility] [address] [place], [address] MCH (RBC) [Entitic mass] 29.2 pg Normal 27.0-32.0 [facility] Comment on above: Order Comment: Order Date: 03/23/24 Order Info: 01806-27 - CBCD Performed By: #### L 100.0100, L500.4100, L501.5200, L500.4050, L501.9520 #### [facility] [address] [place], [address] MCHC (RBC) [Mass/Vol] 33.6 g/dL Normal 32-36 [facility] Comment on above: Order Comment: Order Date: 03/23/24 Order Info: 018- - CBCD Performed By: #### L 100.0100, L500.4100, L501.5200, L500.4050, L501.9520 #### [facility] [address] [place], [address] MCV (RBC) [Entitic vol] 86.8 fL Normal 80-94 [facility] Comment on above: Order Comment: Order Date: 03/23/24 Order Info: 0184-1 - CBCD Performed By: #### L 100.0100, L500.4100, L501.5200, L500.4050, L501.9520 #### [facility] [address] [place], [address] Monocytes/100 WBC (Bld) 8.3 % Normal 0-10 [facility] Comment on above: Order Comment: Order Date: 03/23/24 Order Info: 0184- - CBCD Performed By: #### L 100.0100, L500.4100, L501.5200, L500.4050, L501.9520 #### [facility] [address] [place], [address] Neutrophils/100 WBC (Bld) 63.9 % Normal 47-70 [facility] Comment on above: Order Comment: Order Date: 03/23/24 Order Info: 0184- - CBCD Performed By: #### L 100.0100, L500.4100, L501.5200, L500.4050, L501.9520 #### [facility] [address] [place], [address] Nucleated RBC (Bld) [#/Vol] 0 10*3/uL Normal 0-5 [facility] Comment on above: Order Comment: Order Date: 03/23/24 Order Info: 0184- - CBCD Performed By: #### L 100.0100, L500.4100, L501.5200, L500.4050, L501.9520 #### [facility] [address] [place], [address] Platelet mean volume (Bld) [Entitic vol] 11.8 fL Normal 6.2-12.0 [facility] Comment on above: Order Comment: Order Date: 03/23/24 Order Info: 0184-1 - CBCD Performed By: #### L 100.0100, L500.4100, L501.5200, L500.4050, L501.9520 #### [facility] [address] [place], [address] Platelets (Bld) [#/Vol] 208 10*3/uL Normal 150-450 [facility] Comment on above: Order Comment: Order Date: 03/23/24 Order Info: 0184-1 - CBCD Performed By: #### L 100.0100, L500.4100, L501.5200, L500.4050, L501.9520 #### [facility] [address] [place], [address] RBC (Bld) [#/Vol] 5.62 10*6/uL Normal 4.6-6.2 [facility] Comment on above: Order Comment: Order Date: 03/23/24 Order Info: 0184-1 - CBCD Performed By: #### L 100.0100, L500.4100, L501.5200, L500.4050, L501.9520 #### [facility] [address] [place], [address] RDW SD 39.8 fl Normal 35.1-43.9 [facility] Comment on above: Order Comment: Order Date: 03/23/24 Order Info: 0184-1 - CBCD Performed By: #### L 100.0100, L500.4100, L501.5200, L500.4050, L501.9520 #### [facility] [address] [place], [address] WBC (Bld) [#/Vol] 8.1 10*3/uL Normal 4.4-11.0 [facility] Comment on above: Order Comment: Order Date: 03/23/24 Order Info: 0184-1 - CBCD Performed By: #### L 100.0100, L500.4100, L501.5200, L500.4050, L501.9520 #### [facility] [address] [place], [place], [id number] Carbon dioxide measurementOr dered By: Edmund Awan on 03-23-2024 CO2 [Moles/Vol] 25.0 mmol/L 21.0-32.0 [facility] Chloride measurementOrdered By: Edmund Awan on 03-23-2024 Chloride [Moles/Vol] 104 mmol/L 98-107 [facility] Comprehensive Metabolic Prof ilon 03-23-2024 Albumin [Mass/Vol] 3.7 g/dL Normal 3.2-5.0 [facility] Comment on above: Order Comment: Order Date: 03/23/24 Order Info: 0786-1 - CMP Order Info: 07474-4 - LIPID Order Info: 16213-3 - MG Order Info: 3016-3 - TSH Order Info: 3024-7 - T4F Performed By: #### L 100.0100, L500.4100, L501.5200, L500.4050, L501.9520 #### [facility] [address] [place], [address] Albumin/Globulin [Mass ratio] 0.9 {ratio} Normal 0.9-2.4 [facility] Comment on above: Order Comment: Order Date: 03/23/24 Order Info: 0786-1 - CMP Order Info: 55128-0 - LIPID Order Info: 53523-8 - MG Order Info: 3016-3 - TSH Order Info: 3024-7 - T4F Performed By: #### L 100.0100, L500.4100, L501.5200, L500.4050, L501.9520 #### [facility] [address] [place], [place], [address] ALK P 80 U/L Normal 45-117 [facility] Comment on above: Order Comment: Order Date: 03/23/24 Order Info: 0786-1 - CMP Order Info: 87912-5 - LIPID Order Info: [id number] - MG Order Info: 3016-3 - TSH Order Info: 3024-7 - T4F Performed By: #### L 100.0100, L500.4100, L501.5200, L500.4050, L501.9520 #### [facility] [address] [place], [address] ALT [Catalytic activity/Vol] 155 U/L High 16-61 [facility] Comment on above: Order Comment: Order Date: 03/23/24 Order Info: 0786-1 - CMP Order Info: 78329-3 - LIPID Order Info: 55145-4 - MG Order Info: 3015-3 - TSH Order Info: 302-7 - T4F Performed By: #### L 100.0100, L500.4100, L501.5200, L500.4050, L501.9520 #### [facility] [address] [place], [place], [address] AST [Catalytic activity/Vol] 52 U/L High 15-37 [facility] Comment on above: Order Comment: Order Date: 03/23/24 Order Info: 86-1 - CMP Order Info: 10619-5 - LIPID Order Info: 52510-5 - MG Order Info: 3016-3 - TSH Order Info: 302-7 - T4F Performed By: #### L 100.0100, L500.4100, L501.5200, L500.4050, L501.9520 #### [facility] [address] [place], [address] Bilirubin [Mass/Vol] 0.70 mg/dL Normal 0.20-1.00 [facility] Comment on above: Order Comment: Order Date: 03/23/24 Order Info: 0786-1 - CMP Order Info: 84817-2 - LIPID Order Info: 64855-2 - MG Order Info: 3016-3 - TSH Order Info: 3024-7 - T4F Result Comment: For patients on eltrombopag therapy, use of Dimension Kermit TBIL is not recommended. Performed By: #### L 100.0100, L500.4100, L501.5200, L500.4050, L501.9520 #### [facility] [address] [place], [address] BUN/CRE 14.9 RATIO Normal 10-20 [facility] Comment on above: Order Comment: Order Date: 03/23/24 Order Info: 0786-1 - CMP Order Info: [id number] - LIPID Order Info: 10804-1 - MG Order Info: 3016-3 - TSH Order Info: 3024-7 - T4F Performed By: #### L 100.0100, L500.4100, L501.5200, L500.4050, L501.9520 #### [facility] [address] [place], [address] CA,Total 8.8 mg/dL Normal 8.5-10.1 [facility] Comment on above: Order Comment: Order Date: 03/23/24 Order Info: 86-1 - CMP Order Info: 41410-9 - LIPID Order Info: 06241-1 - MG Order Info: 3016-3 - TSH Order Info: 3024-7 - T4F Performed By: #### L 100.0100, L500.4100, L501.5200, L500.4050, L501.9520 #### [facility] [address] [place], [address] Chloride [Moles/Vol] 104 mmol/L Normal 98-107 [facility] Comment on above: Order Comment: Order Date: 03/23/24 Order Info: 0786-1 - CMP Order Info: 78350-6 - LIPID Order Info: 52976-4 - MG Order Info: 3016-3 - TSH Order Info: 3024-7 - T4F Performed By: #### L 100.0100, L500.4100, L501.5200, L500.4050, L501.9520 #### [facility] [address] [place], [address] CO2 [Moles/Vol] 25.0 mmol/L Normal 21.0-32.0 [facility] Comment on above: Order Comment: Order Date: 03/23/24 Order Info: 785-1 - CMP Order Info: 98508-7 - LIPID Order Info: 11902-7 - MG Order Info: 3016-3 - TSH Order Info: 3027 - T4F Performed By: #### L 100.0100, L500.4100, L501.5200, L500.4050, L501.9520 #### [facility] [address] [place], [address] Creatinine [Mass/Vol] 0.87 mg/dL Normal 0.70-1.30 [facility] Comment on above: Order Comment: Order Date: 03/23/24 Order Info: 785-03 - CMP Order Info: 31801-2 - LIPID Order Info: 67589-4 - MG Order Info: 3 - TSH Order Info: 7 - T4F Result Comment: The validity of the calculated GFR GFRAA in patients over 70 years has not been determined. Clinical correlation is essential. Performed By: #### L 100.0100, L500.4100, L501.5200, L500.4050, L501.9520 #### [facility] [address] [place], [address] EST GFR - AA 121 mL/min Normal >60 [facility] Comment on above: Order Comment: Order Date: 03/23/24 Order Info: 785- - CMP Order Info: [id number] - LIPID Order Info: 25842-4 - MG Order Info: 6-3 - TSH Order Info: 302-7 - T4F Result Comment: Afri can Vincentian GFR Calc Performed By: #### L 100.0100, L500.4100, L501.5200, L500.4050, L501.9520 #### [facility] [address] [place], [address] GAP 6 Normal 5-15 [facility] Comment on above: Order Comment: Order Date: 03/23/24 Order Info: 785-1 - CMP Order Info: 12728-2 - LIPID Order Info: 09072-9 - MG Order Info: 3015-3 - TSH Order Info: 3023-7 - T4F Performed By: #### L 100.0100, L500.4100, L501.5200, L500.4050, L501.9520 #### [facility] [address] [place], [address] GFR/1.73 sq M.predicted among non-blacks MDRD (S/P/Bld) [Vol rate/Area] 100 mL/min/{1.73_m2} Normal >60 [facility] Comment on above: Order Comment: Order Date: 03/23/24 Order Info: 785-1 - CMP Order Info: 20839-7 - LIPID Order Info: 22355-0 - MG Order Info: 3 - TSH Order Info: 7 - T4F Result Comment: Non- GFR Calc Performed By: #### L 100.0100, L500.4100, L501.5200, L500.4050, L501.9520 #### [facility] [address] [place], [address] Globulin (S) [Mass/Vol] 4.1 g/dL Normal 2.2-4.2 [facility] Comment on above: Order Comment: Order Date: 03/23/24 Order Info: 785- - CMP Order Info: 88705-8 - LIPID Order Info: 23020-9 - MG Order Info: 3 - TSH Order Info: 3023-7 - T4F Performed By: #### L 100.0100, L500.4100, L501.5200, L500.4050, L501.9520 #### [facility] [address] [place], [address] Glucose [Mass/Vol] 103 mg/dL Normal 74-106 [facility] Comment on above: Order Comment: Order Date: 03/23/24 Order Info: 785-1 - CMP Order Info: 83615-2 - LIPID Order Info: 88120-5 - MG Order Info: 3 - TSH Order Info: 7 - T4F Result Comment: Fast ing Glucose result from 100 to 125 mg/dL suggests IMPAIRED HOMEOSTASIS per A.D.A. criteria. Performed By: #### L 100.0100, L500.4100, L501.5200, L500.4050, L501.9520 #### [facility] [address] [place], [address] Potassium [Moles/Vol] 3.8 mmol/L Normal 3.5-5.1 [facility] Comment on above: Order Comment: Order Date: 03/23/24 Order Info: 86-1 - CMP Order Info: [id number] - LIPID Order Info: 66215-4 - MG Order Info: 3 - TSH Order Info: 7 - T4F Performed By: #### L 100.0100, L500.4100, L501.5200, L500.4050, L501.9520 #### [facility] [address] [place], [address] Sodium [Moles/Vol] 135 mmol/L Low 136-145 [facility] Comment on above: Order Comment: Order Date: 03/23/24 Order Info: 0786-1 - CMP Order Info: 04145-9 - LIPID Order Info: 54321-9 - MG Order Info: 3 - TSH Order Info: 3027 - T4F Performed By: #### L 100.0100, L500.4100, L501.5200, L500.4050, L501.9520 #### [facility] [address] [place], [address] T PROT 7.8 g/dL Normal 6.4-8.2 [facility] Comment on above: Order Comment: Order Date: 03/23/24 Order Info: 0786-1 - CMP Order Info: 02350-1 - LIPID Order Info: 13204-6 - MG Order Info: 3013 - TSH Order Info: 3027 - T4F Performed By: #### L 100.0100, L500.4100, L501.5200, L500.4050, L501.9520 #### [facility] [address] [place], [place], [address] Urea nitrogen [Mass/Vol] 13 mg/dL Normal 7-18 [facility] Comment on above: Order Comment: Order Date: 03/23/24 Order Info: 0786-1 - CMP Order Info: 89511-3 - LIPID Order Info: 32824-3 - MG Order Info: 3016-3 - TSH Order Info: 3023-09 - T4F Performed By: #### L 100.0100, L500.4100, L501.5200, L500.4050, L501.9520 #### [facility] [address] [facility] [place], [place], [id number] Direct serum free thyroxine (FT4) measurementOrdered By: Edmund Awan on 03-23-2024 Free T4 [Mass/Vol] 1.27 ng/dL 0.76-1.46 [facility] Eosinophil percentageOrdered By: Edmund Awan on 03-23-2024 Eosinophils/100 WBC (Bld) 2.2 % 0-5 [facility] Epithelial cells.squamous LM Ql (Urine sed)Ordered By: Edmund Awan on 03-23-2024 Epithelial cells.squamous LM.HPF (Urine sed) [#/Area] 0 /[HPF] 0-5 [facility] Erythrocyte distribution wid th ratioOrdered By: Edmund Awan on 03-23-2024 Erythrocyte distribution width (RBC) [Ratio] 12.7 % 11.6-14.6 [facility] Erythrocyte distribution wid th standard deviationOrdered By: Edmund Awan on 03-23-2024 Erythrocyte distribution width (RBC) [Entitic vol] 39.8 fL 35.1-43.9 [facility] Estimated glomerular filtrat ion rate (GFR) AmericanOrdered By: Edmund Awan on 03-23-2024 Estimated GFR (MDRD) Amer 121 mL/min >60 [facility] Comment on above: GFR Calc Glomerular filtration rate ( GFR) estimationOrdered By: Edmund Awan on 03-23-2024 Estimated GFR (MDRD) Non-Af Amer 100 mL/min >60 [facility] Comment on above: Non- GFR Calc Glucose Ql (U)Ordered By: Radha Awan on 03-23-2024 Urine Glucose (UA) Normal mg/dl Normal [facility] Glucose measurementOrdered B y: Edmund Awan on 03-23-2024 Glucose [Mass/Vol] 103 mg/dL 74-106 [facility] Comment on above: Fasting Glucose resu lt from 100 to 125 mg/dL suggests IMPAIRED HOMEOSTASIS per A.D.A. criteria. Hematocrit Auto (Bld) [Volum e fraction]Ordered By: Edmund Awan on 03-23-2024 Hematocrit (Bld) [Volume fraction] 48.8 % 40-54 [facility] Hemoglobin measurementOrdere d By: Edmund Awan on 03-23-2024 Hemoglobin (Bld) [Mass/Vol] 16.4 g/dL 13.0-16.5 [facility] High density lipoprotein (HD L) measurementOrdered By: Edmund Awan on 03-23-2024 Cholesterol in HDL [Mass/Vol] 60 mg/dL >40 [facility] Comment on above: The drugs N-Acetylcy steine and Metamizole may falsely depress this assay. Reference Range HDL <40 mg/dL Low HDL Cholesterol HDL >or= 60 mg/dL High HDL Cholesterol Immature granulocytes/100 WB C Auto (Bld)Ordered By: Edmund Awan on 03-23-2024 Immature granulocytes/100 WBC (Bld) 0.600 % 0.0-0.9 [facility] Comment on above: IG% - Immature Granu locytes (promyelocytes, myelocytes and metamyelocytes) > 1% indicates that a LEFT SHIFT is Present. Ketones Test strip Ql (U)Ord ered By: Edmund Awan on 03-23-2024 Ketones Ql (U) Negative Negative [facility] - Chemistry and C hemistry - challengeOrdered By: Edmund Awan on 03-23-2024 AST [Catalytic activity/Vol] 52 U/L High 15-37 [facility] Lipid Profileon 03-23-2024 Cholesterol [Mass/Vol] 116 mg/dL Normal 200 [facility] Comment on above: Order Comment: Order Date: 03/23/24 Order Info: 785-1 - CMP Order Info: - LIPID Order Info: 10296-6 - MG Order Info: 3 - TSH Order Info: 3023-09 - T4F Result Comment: <200 mg/dL Desirable 200-240 mg/dL Borderline >240 mg/dL High Risk Performed By: #### L 100.0100, L500.4100, L501.5200, L500.4050, L501.9520 #### [facility] [address] [place], [address] Cholesterol in HDL [Mass/Vol] 60 mg/dL Normal [facility] Comment on above: Order Comment: Order Date: 03/23/24 Order Info: 785-03 - CMP Order Info: - LIPID Order Info: [id number] - MG Order Info: 3015-05 - TSH Order Info: 3023-09 - T4F Result Comment: The drugs N-Acetylcysteine and Metamizole may falsely depress this assay. Reference Range HDL <40 mg/dL Low HDL Cholesterol HDL >or= 60 mg/dL High HDL Cholesterol Performed By: #### L 100.0100, L500.4100, L501.5200, L500.4050, L501.9520 #### [facility] [address] [place], [address] Cholesterol in LDL [Mass/Vol] 41 mg/dL Normal 0-130 [facility] Comment on above: Order Comment: Order Date: 03/23/24 Order Info: 785-03 - CMP Order Info: - LIPID Order Info: 13082-8 - MG Order Info: 3 - TSH Order Info: 3023-09 - T4F Performed By: #### L 100.0100, L500.4100, L501.5200, L500.4050, L501.9520 #### [facility] [address] [place], [place], [address] Cholesterol in VLDL [Mass/Vol] 15 mg/dL Normal 5-40 [facility] Comment on above: Order Comment: Order Date: 03/23/24 Order Info: 0786-1 - CMP Order Info: [id number] - LIPID Order Info: [id number] - MG Order Info: 3016-3 - TSH Order Info: 302-7 - T4F Performed By: #### L 100.0100, L500.4100, L501.5200, L500.4050, L501.9520 #### [facility] [address] [place], [place], [address] Triglyceride [Mass/Vol] 77 mg/dL Normal [facility] Comment on above: Order Comment: Order Date: 03/23/24 Order Info: 0786-1 - CMP Order Info: [id number] - LIPID Order Info: [id number] - MG Order Info: 3016-3 - TSH Order Info: 7 - T4F Result Comment: The drugs N-Acetylcysteine and Metamizole may falsely depress this assay. Serum Triglycerides Reference Interval Normal <150 mg/dL Borderline high 150 - 199 mg/dL High 200 - 499 mg/dL Very High > or = 500 mg/dL Performed By: #### L 100.0100, L500.4100, L501.5200, L500.4050, L501.9520 #### [facility] [address] [place], [address] Low density lipoprotein (LDL ) cholesterol measurementOrdered By: Edmund Awan on 03-23-2024 Cholesterol in LDL [Mass/Vol] 41 mg/dL 0-130 [facility] Lymphocytes Auto (Unsp spec) [#/Vol]Ordered By: Edmund Awan on 03-23-2024 Lymphocytes (Bld) [#/Vol] 1.94 10*3/uL 0.83-4.51 [facility] Lymphocytes/100 WBC Auto (Un sp spec)Ordered By: Edmund Awan on 03-23-2024 Lymphocytes/100 WBC (Bld) 24.1 % 19-41 [facility] MCV (mean corpuscular volume ) determinationOrdered By: Edmund Awan on 03-23-2024 MCV (RBC) [Entitic vol] 86.8 fL 80-94 [facility] Magnesiumon 03-23-2024 Magnesium [Mass/Vol] 2.1 mg/dL Normal 1.6-2.6 [facility] Comment on above: Order Comment: Order Date: 03/23/24 Order Info: 0786-1 - CMP Order Info: 85855-6 - LIPID Order Info: [id number] - MG Order Info: 3016-3 - TSH Order Info: 3024-7 - T4F Performed By: #### L 100.0100, L500.4100, L501.5200, L500.4050, L501.9520 #### [facility] [place], [address] Magnesium measurementOrdered By: Edmund Awan on 03-23-2024 Magnesium [Mass/Vol] 2.1 mg/dL 1.6-2.6 [facility] Mean corpuscular hemoglobin (MCH) determinationOrdered By: Edmund Awan on 03-23-2024 MCH (RBC) [Entitic mass] 29.2 pg 27.0-32.0 [facility] Mean corpuscular hemoglobin concentration (MCHC) determinationOrdered By: Edmund Awan on 03-23-2024 MCHC (RBC) [Mass/Vol] 33.6 g/dL 32-36 [facility] Mean platelet volume determi nationOrdered By: Edmund Awan on 03-23-2024 Platelet mean volume (Bld) [Entitic vol] 11.8 fL 6.2-12.0 [facility] Microscopic analysis of urin e for red blood cells (RBC)Ordered By: Edmund Awan on 03-23-2024 Urine RBC 0 SEEN /hpf 0-5 [facility] Monocyte percentageOrdered B y: Edmund Awan on 03-23-2024 Monocytes/100 WBC (Bld) 8.3 % 0-10 [facility] Mucus LM Ql (Urine sed)Order ed By: Edmund Awan on 03-23-2024 Mucus Ql (Urine sed) 0 SEEN /hpf [facility] Neutrophil percentageOrdered By: Edmund Awan on 03-23-2024 Neutrophils/100 WBC (Bld) 63.9 % 47-70 [facility] Nitrite Test strip Ql (U)Ord ered By: Edmund Awan on 03-23-2024 Nitrite Ql (U) Negative Negative [facility] No Panel InformationOrdered By: Edmund Awan on 03-23-2024 Miscellaneous Test COMMENT . [facility] Comment on above: Test Ordered: [id number] Anti-Th/To Ab (RDL)Test(s) 625341-Soev-Ni/To Ab (RDL)was developed and its performance characteristicsdetermined by [employer]. It has not been cleared or approvedby the Food and Drug Administration.Anti-Th/To Ab (RDL) Negative [facility] Reference Range: NegativePerformed at: [facility] [address] [id number] Director: Arjun Salvador MD, Phone: [phone] at: [address] [id number] Director: Amari Gonsales PhD, Phone: [phone] Nucleated red blood cell per centageOrdered By: Edmund Awan on 03-23-2024 Nucleated RBC/100 WBC (Bld) [Ratio] 0 % 0-5 [facility] Platelet countOrdered By: Radha Awan on 03-23-2024 Platelets (Bld) [#/Vol] 208 10*3/uL 150-450 [facility] Potassium measurementOrdered By: Edmund Awan on 03-23-2024 Potassium [Moles/Vol] 3.8 mmol/L 3.5-5.1 [facility] Protein Test strip Ql (U)Ord ered By: Edmund Awan on 03-23-2024 Protein Ql (U) 30 mg/dl High Negative [facility] RBC Auto (Bld) [#/Vol]Ordere d By: Edmund Awan on 03-23-2024 RBC (Bld) [#/Vol] 5.62 10*6/uL 4.6-6.2 [facility] Serum anion gap measurementO rdered By: Edmund Awan on 03-23-2024 Anion gap [Moles/Vol] 6 mmol/L 5-15 [facility] Serum globulin measurementOr dered By: Edmund Awan on 03-23-2024 Globulin (S) [Mass/Vol] 4.1 g/dL 2.2-4.2 [facility] Serum or plasma alanine thomason otransferase (ALT) measurementOrdered By: Edmund Awan on 03-23-2024 ALT [Catalytic activity/Vol] 155 U/L High 16-61 [facility] Serum or plasma albumin andi urement (mass/volume)Ordered By: Edmund Awan on 03-23-2024 Albumin [Mass/Vol] 3.7 g/dL 3.2-5.0 [facility] Serum or plasma alkaline roger sphatase measurementOrdered By: Edmund Awan on 03-23-2024 ALP [Catalytic activity/Vol] 80 U/L 45-117 [facility] Serum or plasma calcium andi urement (mass/volume)Ordered By: Edmund Awan on 03-23-2024 Calcium [Mass/Vol] 8.8 mg/dL 8.5-10.1 [facility] Serum or plasma cholesterol measurement (mass/volume)Ordered By: Edmund Awan on 03-23-2024 Cholesterol [Mass/Vol] 116 mg/dL <200 [facility] Comment on above: <200 mg/dL Desirable 200-240 mg/dL Borderline >240 mg/dL High Risk Serum or plasma creatinine m easurement (mass/volume)Ordered By: Edmund Awan on 03-23-2024 Creatinine [Mass/Vol] 0.87 mg/dL 0.70-1.30 [facility] Comment on above: The validity of the calculated GFR & GFRAA in patients over 70 years has not been determined. Clinical correlation is essential. Serum or plasma urea nitroge n measurement (mass/volume)Ordered By: Edmund Awan on 03-23-2024 Urea nitrogen [Mass/Vol] 13 mg/dL 7-18 [facility] Sodium levelOrdered By: Edmund Awan on 03-23-2024 Sodium [Moles/Vol] 135 mmol/L Low 136-145 [facility] T4 Free Directon 03-23-2024 T4 FREE DIRECT 1.27 ng/dL Normal 0.76-1.46 [facility] Comment on above: Order Comment: Order Date: 03/23/24 Order Info: 0786-1 - CMP Order Info: 17234-7 - LIPID Order Info: [id number] - MG Order Info: 3016-3 - TSH Order Info: 3024-7 - T4F Performed By: #### L 100.0100, L500.4100, L501.5200, L500.4050, L501.9520 #### [facility] [address] [place], [place], [id number] TPO Ab QnOrdered By: Edmund cali on 03-23-2024 Thyroid Peroxidase Antibodies 12 IU/mL 0-34 [facility] Comment on above: Performed at: [address] [id number] Director: Castillo Mujica MD, Phone: [phone] at: [facility] [id number] Director: Amari Gonsales PhD, Phone: [phone] TSH QnOrdered By: Edmund delgado on 03-23-2024 Thyroid Stimulating Hormone (TSH) 3.960 uIU/mL High 0.358-3.740 [facility] Thyroid Stim Hormone (TSH)on 03-23-2024 TSH 3.960 uIU/mL High 0.358-3.740 [facility] Comment on above: Order Comment: Order Date: 03/23/24 Order Info: 0786-1 - CMP Order Info: [id number] - LIPID Order Info: 11264-0 - MG Order Info: 3016-3 - TSH Order Info: 3027 - T4F Performed By: #### L 100.0100, L500.4100, L501.5200, L500.4050, L501.9520 #### [facility] [address] [place], [address] Thyroid stimulating immunogl obulins Ql (S)Ordered By: Edmund Awan on 03-23-2024 Thyroid Stimulating Immunoglobulin <0.10 IU/L 0.00-0.55 [facility] Total proteinOrdered By: Alirio Awan on 03-23-2024 Protein [Mass/Vol] 7.8 g/dL 6.4-8.2 [facility] Triglycerides measurementOrd ered By: Edmund Awan on 03-23-2024 Triglyceride [Mass/Vol] 77 mg/dL <199 [facility] Comment on above: The drugs N-Acetylcy steine and Metamizole may falsely depress this assay.Serum Triglycerides Reference Interval Normal <150 mg/dL Borderline high 150 - 199 mg/dL High 200 - 499 mg/dL Very High > or = 500 mg/dL Urinalysis, Completeon 03-23 BACTERIA 0 SEEN Normal None Seen [facility] Comment on above: Order Comment: Order Date: 03/23/24 Order Info: 0786-1 - CMP Order Info: [id number] - LIPID Order Info: 91253-4 - MG Order Info: 301-3 - TSH Order Info: 302-7 - T4F Performed By: #### L 100.0100, L500.4100, L501.5200, L500.4050, L501.9520 #### [facility] [address] [place], [address] EPI,SQUAMOUS 0 SEEN Normal 0-5 [facility] Comment on above: Order Comment: Order Date: 03/23/24 Order Info: 0786-1 - CMP Order Info: 69828-4 - LIPID Order Info: 24675-7 - MG Order Info: 3016-3 - TSH Order Info: 3024-7 - T4F Performed By: #### L 100.0100, L500.4100, L501.5200, L500.4050, L501.9520 #### [facility] [address] [place], [address] Mucus Ql (Urine sed) 0 SEEN Normal [facility] Comment on above: Order Comment: Order Date: 03/23/24 Order Info: 0786-1 - CMP Order Info: 28965-5 - LIPID Order Info: 75827-8 - MG Order Info: 3016-3 - TSH Order Info: 3024-7 - T4F Performed By: #### L 100.0100, L500.4100, L501.5200, L500.4050, L501.9520 #### [facility] [address] [place], [address] RBC 0 SEEN Normal 0-5 [facility] Comment on above: Order Comment: Order Date: 03/23/24 Order Info: 0786-1 - CMP Order Info: 10438-1 - LIPID Order Info: 87795-2 - MG Order Info: 3 - TSH Order Info: 3027 - T4F Performed By: #### L 100.0100, L500.4100, L501.5200, L500.4050, L501.9520 #### [facility] [address] [place], [address] WBC 0 SEEN Normal 0-5 [facility] Comment on above: Order Comment: Order Date: 03/23/24 Order Info: 0786-1 - CMP Order Info: 71101-8 - LIPID Order Info: 47530-4 - MG Order Info: 30163 - TSH Order Info: 302-7 - T4F Performed By: #### L 100.0100, L500.4100, L501.5200, L500.4050, L501.9520 #### [facility] [address] [place], [address] Urine blood detectionOrdered By: Edmund Awan on 03-23-2024 Urine Occult Blood Negative Negative [facility] Urine clarityOrdered By: Alirio Awan on 03-23-2024 Clarity (U) Clear Clear [facility] Urine color determinationOrd ered By: Edmund Awan on 03-23-2024 Color (U) Yellow Yellow [facility] Urine leukocyte esterase det ection by dipstickOrdered By: Edmund Awan on 03-23-2024 Leukocyte esterase Test strip Ql (U) Negative Negative [facility] Urine pHOrdered By: Edmund funes on 03-23-2024 pH (U) 6.5 [pH] 5.0 - 8.0 [facility] Urine sediment bacteria coun t by microscopy (number/high power field)Ordered By: Edmund Awan on 03-23-2024 Bacteria LM.HPF (Urine sed) [#/Area] 0 /[HPF] None Seen [facility] Urine specific gravity measu rementOrdered By: Edmund Awan on 03-23-2024 Specific gravity (U) [Rel density] 1.010 1.002-1.030 [facility] Urobilinogen Ql (U)Ordered B y: Edmund Awan on 03-23-2024 Urine Urobilinogen Normal mg/dl Normal [facility] Very low density lipoprotein (VLDL) cholesterol measurementOrdered By: Edmund Awan on 03-23-2024 VLDL Cholesterol 15 mg/dL 5-40 [facility] White blood cell (WBC) count Ordered By: Edmund Awan on 03-23-2024 WBC (Bld) [#/Vol] 8.1 10*3/uL 4.4-11.0 [facility] White blood cell countOrdere d By: Edmund Awan on 03-23-2024 Urine WBC 0 SEEN /hpf 0-5 [facility] Miscellaneous Lab Procedureo n 03-06-2024 MISC LAB TEST Normal [facility] Comment on above: Order Comment: Order Date: 03/23/24 Order Info: 0786-1 - CMP Order Info: [id number] - LIPID Order Info: 55166-1 - MG Order Info: 3016-3 - TSH Order Info: 3024-7 - T4F Result Comment: TEST RESULTS LIMITS Liver-Kidney Microsomal Ab <1.0 Units 0.0-20.0 Negative 0.0 - 20.0 Equivocal 20.1 - 24.9 Positive >24.9 LKM type 1 antibodies are detected in patients with autoimmune hepatitis type 2 and in up to 8% of patients with chronic HCV infection. TESTING PERFORMED AT [facility]. ORIGINAL REPORT ON FILE IN LAB CONTAINS ADDITIONAL TEST SITE INFORMATION. Performed By: #### L 100.0100, L500.4100, L501.5200, L500.4050, L501.9520 #### [facility] [address] [place], [place], [id number] ANTINUCLEAR ANTIBODIES DIREC Ton 03-03-2024 CHIP,DIRECT Positive Abnormal Negative [facility] Comment on above: Result Comment: Perf ormed at: [address] [id number] Client Relation Specialist: Amari Gonsales PhD, Phone: [phone] Performed By: #### L 100.0100, L500.4100, L501.5200, L500.4050, L501.9520 #### [facility] [address] [place], [place], [address] Anti-Mitochondrial ABon ANTIMITOCHON AB <20.0 Normal 0.0-20.0 [facility] Comment on above: Result Comment: Nega tive 0.0 - 20.0 Equivocal 20.1 - 24.9 Positive >24.9 Mitochondrial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 degenerative disc disease..No other significant abnormality.Counting reference: Craniocervical junction.Anterior bridging bone C2-C4 with preserved disc spaces would be consistent with syndesmophytes. Cervical facet joints are preservedThoracic spine vertebral body heights are preserved without signs of syndesmophytes.IMPRESSIO N:Bilateral sacroiliitis with ankylosis is consistent with ankylosing spondylitis.Lumbosacral spine. Syndesmophytes at L3-4 and discovertebral erosions at L1-2. These were not present 7 years earlier.Fusion of the L4-S1 facet joints is likely secondary to ankylosing spondylitis.Cervical spine. C2-C4 syndesmophytes.Thoracic spine. No significant finding.Runner Man : PSCRasheed Transcribe Date/Time: Sep 22 2017 4:17PDictated by : GAYATRI FRANCIS MDThiaria examination was interpreted and the report reviewed and electronically signed by: GAYATRI FRANCIS MD on Sep 22 2017 4:30PM [id number] N Normal [facility] XR THORACIC 3V AP/LAT/SWIMME RSon 09-22-2017 XR THORACIC 3V AP/LAT/SWIMMERS * * *Final Report* * *DATE OF EXAM: Sep 22 2017 12:45PM AOX 5261 - XR THORACIC 3V AP/LAT/SWIMMERS / REASON: multiple diagnoses * * * * Physician Interpretation * * * * EXAMINATION: XR SI JTS 2V AP PELV/LANDRY, XR CERVICAL 4V AP/LAT/OBL, XR LUMBAR 3V AP/LAT/L5-S1, XR THORACIC 3V AP/LAT/SWIMMERSHISTORY: follow up for anklyosing spondylitis Ankylosing spondylitis of multiple sites in spine Major depressive disorder, single episode, severe without psychotic features Proteinuria, unspecified .TECHNIQUE: XR SI JTS 2V AP PELV/LANDRY, XR CERVICAL 4V AP/LAT/OBL, XR LUMBAR 3V AP/LAT/L5-S1, XR THORACIC 3V AP/LAT/SWIMMERS Laterality: NOT APPLICABLE Number of different views (projections): 2 (accession [id number]), 4 (accession [id number]), 3 (accession [id number]), 3 (accession [id number]) M: XB_1COMPARISON: Lumbosacral spine 11/20/2010RESULT:Sacroil iac joints. Bilaterally the anterior synovial segments of the sacroiliac joints have ankylosed in the posterior segments of the joint are significantly narrowed consistent with ankylosing spondylitis.Counting Reference: Lumbosacral junction. For the purposes of this report, the most caudal normal disc space in the lumbar region will be labeled as L5-S1. The iliac crest will serve as a secondary landmark to identify the L4-5 level. Exceptions: noneSyndesmophytes are present at L3-L4 and possibly discovertebral erosions at L1-2Sclerosis about the L4-S1 facet joints is likely related to ankylosing spondylitis.These findings were not present on the lumbar spine examination of 7 years earlierNarrowed L5-S1 disc space consistent with degenerative disc disease..No other significant abnormality.Counting reference: Craniocervical junction.Anterior bridging bone C2-C4 with preserved disc spaces would be consistent with syndesmophytes. Cervical facet joints are preservedThoracic spine vertebral body heights are preserved without signs of syndesmophytes.IMPRESSIO N:Bilateral sacroiliitis with ankylosis is consistent with ankylosing spondylitis.Lumbosacral spine. Syndesmophytes at L3-4 and discovertebral erosions at L1-2. These were not present 7 years earlier.Fusion of the L4-S1 facet joints is likely secondary to ankylosing spondylitis.Cervical spine. C2-C4 syndesmophytes.Thoracic spine. No significant finding.Runner [facility] Transcribe Date/Time: Sep 22 2017 4:17PDictated by : GAYATRI FRANCIS MDThis examination was interpreted and the report reviewed and electronically signed by: GAYATRI FRANCIS MD on Sep 22 2017 4:30PM [id number] N Normal [facility] Vital Signs Date Time Vital Sign Value Performing Clinician Facility 08-30-2024 11:15-0400 Diastolic blood pressure 95 mm[Hg] Dr. Edmund Awan MD Work Phone: [facility] 08-30-2024 11:15-0400 Heart rate 95 /min Dr. Edmund Awan MD Work Phone: [facility] 08-30-2024 11:15-0400 Respiratory rate 16 /min Dr. Edmund Awan MD Work Phone: [facility] 08-30-2024 11:15-0400 SaO2% (BldA) [Mass fraction] 95 % Dr. Edmund Awan MD Work Phone: [facility] 08-30-2024 11:15-0400 Systolic blood pressure 152 mm[Hg] Dr. Edmund Awan MD Work Phone: [facility] 08-30-2024 09:18-0400 Body height 175.[address] Edmund Awan MD Work Phone: [facility] 08-30-2024 09:18-0400 Body mass index (BMI) [Ratio] 34 kg/m2 Dr. Edmund Awan MD Work Phone: [facility] 08-30-2024 09:18-0400 Body temperature 97.7 [degF] Dr. Edmund A[facility] [facility] 08-30-2024 09:18-0400 Body weight 104.[address] Edmund Awan MD Work Phone: [facility] 10-15-2017 07:49-0400 BMI (Body Mass Index) 33.36 kg/m2 Alka Sands [facility] Internal Medicine Work Phone: 10-15-2017 07:49-0400 Body Temperature 97.2 [degF] Alka Dimasemani [facility] Work Phone: Comment on above: Method: Temporal 10-15-2017 07:49-0400 Body weight 100.25 kg Alka Sands [facility] Work Phone: 10-15-2017 07:49-0400 BP Diastolic 80 mm[Hg] Alka Sands [facility] Work Phone: Comment on above: Patient Position: Sitting; Cuff Location : Left Arm; Cuff Size: Standard 10-15-2017 07:49-0400 BP Systolic 132 mm[Hg] Alka Dimasemani [facility] Work Phone: Comment on above: Patient Position: Sitting; Cuff Location : Left Arm; Cuff Size: Standard 10-15-2017 07:49-0400 BSA (Body Surface Area) 2.14 m2 Alka Sands [facility] Work Phone: 10-15-2017 07:49-0400 Height 173.35 cm Alka Sands [facility] Work Phone: 10-15-2017 07:49-0400 Pulse (Heart Rate) 84 /min Alka Sands [facility] Work Phone: Comment on above: Pattern: Regular 10-15-2017 07:49-0400 Respiratory Rate 16 /min Alka Sands [facility] Work Phone: Comment on above: Pattern: Unlabored Encounters Encounter Date Encounter Type Care Provider Facility Start: 09-20-2024 ambulatory Edmund Awan Facilit y:[facility] Start: 09-14-2024 End: 09-14-2024 Patient encounter procedure Agusto Can [facility] Work Phone: Start: 09-14-2024 End: 09-14-[address] Edmund Awan MD Work Phone: [facility] Work Phone: Start: 09-06-2024 Encounter for other preprocedural examination Agusto [facility] Start: 08-30-2024 End: 08-30-[address] Edmund Awan MD Work Phone: [facility] Work Phone: Start: 08-30-2024 End: 08-30-2024 [facility] Work Phone: Start: 08-30-2024 End: 08-30-2024 ambulatory Edmund Awan Facility:[facility] Start: 08-15-2024 End: 08-15-[address] Edmund Awan MD Work Phone: [facility] Work Phone: Start: 08-15-2024 End: 08-15-2024 Patient encounter procedure Agusto North DO -Laboratory Work Phone: Start: 08-15-2024 End: 08-15-2024 Patient encounter procedure Agusto [place] [facility] [facility] Work Phone: Start: 08-15-2024 End: 08-15-[address] Edmund Awan MD Work Phone: [facility] Work Phone: Start: 08-15-2024 End: 08-15-2024 ambulatory Edmund Awan Facility:[facility] Start: 08-10-2024 End: 08-10-[address] Edmund Awan MD Work Phone: [facility] Work Phone: Start: 08-10-2024 End: 08-10-[address] Edmund Awan MD -Laboratory [facility] Start: 08-10-2024 End: 08-10-2024 ambulatory Edmund Awan Facility:[facility] Start: 06-02-2024 Non-patient / Non-visit Dr. Jason decker MD -[facility] Start: 06-02-2024 End: 06-02-[address] Amalia Wu DO Work Phone: [facility] Work Phone: Start: 06-02-2024 End: 06-02-[address] Edmund Awan MD -Cardiovascular Services Work Phone: Start: 06-02-2024 End: 06-02-2024 ambulatory Edmund Awan Facility:[facility] Start: 05-11-2024 End: 05-11-[address] Edmund Awan MD -Ultrasound, [facility] Work Phone: Start: 05-11-2024 End: 05-11-2024 ambulatory Edmund Awan Facility:[facility] Start: 04-27-2024 End: 04-27-[address] Edmund Awan MD -Laboratory, [facility] Phone: Start: 04-27-2024 End: 04-27-2024 ambulatory Edmund Awan Facility:[facility] Start: 03-27-2024 End: 03-27-[address] Edmund Awan MD -Ultrasound, [facility] Work Phone: Start: 03-27-2024 End: 03-27-2024 ambulatory Edmund Awan Facility:[facility] Start: 03-23-2024 End: 03-23-[address] Edmund Awan MD -Laboratory, [facility] Start: 03-23-2024 End: 03-23-2024 ambulatory Edmund Awan Facility:[facility] Start: 03-01-2024 End: 03-01-[address] Amari Serra MD -Laboratory, [place] Work Phone: Start: 03-01-2024 End: 03-01-2024 ambulatory Amalia Fast Facility:[facility] Start: 01-31-2024 End: 01-31-2024 Emergency department patient visit Amalia Fast Facility:[facility] Start: 01-14-2024 End: 01-14-2024 ambulatory Amalia Fast Facility:[facility] Start: 01-13-2022 ambulatory Amalia A Fast DO [facility] Start: 01-04-2018 End: 01-05-2018 Patient encounter ART GROSS [facility] Start: 01-04-2018 End: 01-04-2018 Patient encounter ART GROSS [facility] Start: 10-26-2017 End: 10-26-2017 Phone Encounter Amalia Wu [facility] Start: 10-19-2017 End: 10-19-2017 Office outpatient visit 5 minutes Amalia Bryce [facility] Start: 10-15-2017 End: 10-17-2017 Office outpatient visit 40 minutes Amalia Wu [facility] Start: 09-22-2017 End: 09-24-2017 Patient encounter NIKKI KOWALSKI [facility] Start: 09-22-2017 End: 09-27-2017 Patient encounter NIKKI KOWALSKI [facility] Procedures Date Procedure Procedure Detail Performing Clinician Start: 08-30-2024 Biopsy/Inj or Needle Placement Dr. Edmund Awan MD Work Phone: Start: 08-15-2024 Albumin/Globulin ratio Dr. Edmund Awan MD Work Phone: Start: 08-15-[address] Edmund Awan MD Work Phone: Comment on above: The atypical pANCA pattern has been obse rved in asignificant percentage of patients with ulcerative colitis,primary sclerosing cholangitis and autoimmune hepatitis. Start: 08-15-2024 Antibody to centromere measurement Dr. Karolyn Awan MD Work Phone: Comment on above: Test not performed Previous reported re sult: TNP AIEdited by: INFCE on 08/18/24:1408 AMENDED REPORT 08/18/24 1408 ANTI-CENT B previously reported as: Test not performed Start: 08-15-2024 Antibody to extractable nuclear antigen measurement Dr. Edmund Awan MD Work Phone: Comment on above: Test not performed Previous reported re sult: TNP AIEdited by: INFCE on 08/18/24:1408 AMENDED REPORT 08/18/24 1408 BYNUM Ab previously reported as: Test not performed Start: 08-15-2024 Antibody to RADHA-[address] Edmund cali MD Work Phone: Comment on above: Test not performed Previous reported re sult: TNP AIEdited by: INFCE on 08/18/24:1408 AMENDED REPORT 08/18/24 1408 ANTI-RADHA previously reported as: Test not performed Start: 08-15-2024 Antibody to lupus La protein measurement Dr. Edmund Awan MD Work Phone: Start: 08-15-2024 Antibody to SS-A measurement Dr. Edmund cali MD Work Phone: Start: 08-15-[address] Edmund pierre MD Work Phone: Comment on above: Test not performed Previous reported re sult: TNP AIEdited by: BIA on 08/18/24:1408 AMENDED REPORT 08/18/24 1408 ANTICHROMATIN previously reported as: Test not performed Start: 08-15-[address] Edmund delgado MD Work Phone: Start: 08-15-2024 Copper measurement, serum Dr. Edmund delgado MD Work Phone: Comment on above: Detection Limit = 5 Start: 08-15-2024 Hepatitis A virus antibody, IgM type Dr. Edmund Awan MD Work Phone: Comment on above: A negative anti-HAV IgM result suggests no recent orcurrent HAV infection. Start: 08-15-2024 Hepatitis B core antibody measurement, IgM type Dr. Edmund Awan MD Work Phone: Start: 08-15-2024 Hepatitis C antibody measurement Dr. Alirio Awan MD Work Phone: Start: 08-15-2024 [address] M measurement Dr. Edmund cali MD Work Phone: Start: 08-15-2024 In-vitro immunologic test Dr. Edmund delgado MD Work Phone: Comment on above: Test not performed Test not performedTe st not performed Start: 08-15-[address] Edmund armijo MD Work Phone: Start: 08-15-[address] Edmund Awan MD Work Phone: Comment on above: TEST RESULTS LIMITSHered.Hemochromatosis , DNA Hereditary Hemochromatosis Result: c.845G>A (p.Zbr299Dgo) - Not Detected c.187C>G (p.Nwc71Jix) - Not Detected c.193A>T (p.Iou51Gmg) - Not Detected Not associated with increased risk to develop clinical symptoms of Hereditary Hemochromatosis. In symptomatic individuals, other causes of iron overload should be evaluated. See Additional Information and Comments.Please Note: Additional Clinical Information:Hereditary hemochromatosis (HFE related) is an autosomal recessive iron storage disorder. Patients may have a genetic diagnosis of hereditary hemochromatosis and never show clinical symptoms. Clinical symptoms typically appear between 40 to 60 years in males and after menopause in females. Signs and symptoms may include organ damage, primarily in the liver, risk for hepatocellular carcinoma, diabetes, and heart disease due to iron accumulation. Life expectancy may be decreased in individuals who develop cirrhosis. Treatment for clinically symptomatic individuals may include therapeutic phlebotomy. Liver transplant may be used to treat end stage liver failure. For preventive care, monitoring for iron overload is recommended for patients who are homozygous for c.845G>A (p.Nji390Tvj) and have yet to experience clinical symptoms.Comments:The most common HFE variants associated with hereditaryhemochromatosis are c.845G>A (p.Fqv274Lvl), c.187C>G (p.Mir93Ulp), c.193A>T (p.Sjo31Zyh). While patients homozygous for c.845G>A (p.Dts508Klm) are the most likely to present clinical symptoms, less than 10% develop clinically significant iron overload with tissue and organ damage.Genetic counseling is recommended to discuss the potential clinical implications of positive results, as well as recommendations for testing family members.Genetic Coordinators are available for health care providers todiscuss results at [phone]).Test Details:Three variants analyzed:c.845G>A (p.Eob952Mvn), commonly referred to as C282Yc.187C>G (p.Vyr48Nyq), commonly referred to as H63Dc.193A>T (p.Ekv94Vbu), commonly referred to as U42JNnlxsng/Limitations:DNA Analysis of the HFE gene (NM_000410.4) was performed by PCRamplification followed by restriction enzyme digestion analyses.Results must be combined with clinical information for the mostaccurate interpretation. Molecular-based testing is highly accurate, but as in any laboratory test, diagnostic errors may occur. False positive or false negative results may occur for reasons that include genetic variants, blood transfusions, bone marrow transplantation, somatic or tissue-specific mosaicism, mislabeled samples, or erroneous representation of family relationships.This test was developed and its performance characteristicsdetermined by [facility]. It has not been cleared or approved by the Food and Drug Administration.References:Tato BR, Emmanuel PC, Arturo KV, Alex LW, Frank ; AmericanAssociation for the Study of Liver Diseases. Diagnosis and management of hemochromatosis: 2011 practice guideline by the [place] Association for the Study of Liver Diseases. Hepatology. 2011 Sep;54(1):328-43. doi: 10.1002/hep.90092. PMID: 75677371; PMCID: TKD7962080.Bao G, Nedra P, Antonio DW, Koki H, Erwin O, Malcom S, Wali I, Bernabe M, Ivette S. QN best practice guidelines for the molecular genetic diagnosis of hereditary hemochromatosis (HH). Eur J Hum Agueda. 2016 Jun;24(4):479-95. doi: 10.1038/ejhg.2015.128.Epub 2014Oct 03. PMID: 98113372; PMCID: PTI0760651.Reviewed by: Technical Component performed at [facility] RTPProfessional Component performed by:Piero Garcia, PhD, [id number], [facility], [address] [facility] [place] [address] TESTING PERFORMED AT [facility]. ORIGINAL REPORT ON FILE IN LAB CONTAINS ADDITIONAL TEST SITE INFORMATION. Start: 08-15-2024 PROCUREMENT CONSULTANT antibody measurement Dr. Edmund pierre MD Work Phone: Comment on above: Test not performed Previous reported re sult: DEEJAY AIEdited by: BIA on 08/18/24:1408 AMENDED REPORT 08/18/241407 PROCUREMENT CONSULTANT Ab previously reported as: Test not performed Start: 08-15-2024 Emelyn Moralezner MD Work Phone: Start: 08-15-[address] Edmund Awan MD Work Phone: Comment on above: Performed at: [facility] [employer] [id number] [place], [place] [id number] Director: Amari Gonsales PhD, Phone: [phone] at: [facility] [id number] Director: Castillo Mujica MD, Phone: [phone] Start: 08-15-[address] Edmund Awan MD Work Phone: Start: 08-15-2024 Total iron binding capacity measurement Dr. Edmund Awan MD Work Phone: Start: 08-10-2024 Urnls dip stick/tablet reagent auto microscopy Dr. Edmund Awan MD Work Phone: Start: 08-10-2024 Prostate specific antigen measurement Dr. Edmund Awan MD Work Phone: Comment on above: This test was performed using the [employer] tPSA method. Measured values of a patient sample can vary depending on the testing procedure used. PSA values determined on patient samples by different testing procedures cannot be used interchangeably. If there is a change in PSA assays while monitoring therapy, sequential testing should be performed to confirm baseline values. Start: 05-11-2024 Complete ultrasound of kidneys and bladder Dr. Amalia Wu DO Work Phone: Start: 04-27-2024 Measurement of renal function Dr. Edmund soares MD Work Phone: Comment on above: GFR Calc Start: 03-27-2024 US scan of thyroid Dr. Amalia Wu DO Work Phone: Start: 11-27-2016 End: 11-27-2016 Rick Sands Comment on above: repeat in [address] Ponce Sands Comment on above: Autoimmune Dr. Kilo joaquin Comment on above: Nephrology Plan of Treatment Date Care Activity Detail Author Start: 08-30-2024 Biopsy liver needle percutaneous NEEDLE BIOPSY OF LIVER PERQ [facility] Start: 08-30-2024 Catheterization of vein [facility] Start: 08-30-2024 Oxygen therapy [facility] Start: 08-30-2024 Patient discharge [facility] Start: 08-30-2024 Vital signs measurements [facility] Start: 08-30-2024 Following clinical pathway protocol [facility] Start: 08-15-2024 Acute hepatitis 2000 panel - Serum [facility] Start: 08-15-2024 Aldolase [Enzymatic activity/volume] in Serum or Plasma [facility] Start: 08-15-2024 Ceruloplasmin [Mass/volume] in Serum or Plasma [facility] Start: 08-15-2024 Copper [Moles/volume] in Serum or Plasma [facility] Start: 08-15-2024 Haptoglobin [Mass/volume] in Serum or Plasma [facility] Start: 08-15-2024 In-vitro immunologic test [facility] Start: 08-15-2024 Mitochondria Ab [Presence] in Serum [facility] Start: 08-15-2024 Procedure [facility] Start: 08-15-2024 Serum immunofixation [facility] Start: 08-15-2024 Smooth muscle Ab [Presence] in Serum [facility] Start: 08-15-2024 Testosterone measurement [facility] Start: 08-15-2024 [facility] Start: 10-17-2017 Comprehensive metabolic panel METABOLIC PANEL, COMPREHENSIVE (47612) [facility] Work Phone: Start: 10-15-2017 Procedure Education Eprescribed prescriptions (G8553) [facility] Work Phone: Start: 10-15-2017 Creatinine clearance CREATININE CLEARANCE (71465) [facility] Work Phone: Start: 10-15-2017 Protein (U) [Mass/Vol] Total Protein,24 Hour Urine (14053) [facility] Work Phone: Start: 10-15-2017 Protein total xcpt refractometry urine Total Protein,24 Hour Urine (30428) [facility]; [facility] Work Phone: Start: 10-15-2017 aPTT Coag (Bld) [Time] PTT (Activated Partial Thromboplastin Time) (84390) [facility] Work Phone: Start: 10-15-2017 Thromboplastin time partial plasma/whole blood PTT (Activated Partial Thromboplastin Time) (56311) [facility]; [facility] Work Phone: Start: 10-15-2017 Prothrombin time PT (Prothrobim Time) (28767) [facility]; [facility] Work Phone: Start: 10-15-2017 PT Coag (PPP) [Time] PT (Prothrobim Time) (55395) [facility] Work Phone: Start: 10-15-2017 Tb cell mediated antign respnse gamma interferon Quantiferron gold test (64558) [facility] Work Phone: Start: 10-15-2017 Immunoassay analyte qual/semiqual multiple step [facility] Work Phone: Albumin [Moles/volum e] in Serum or Plasma [facility] Albumin/Globulin ratio [facility] Antibody to lupus La protein measurement [facility] Antibody to SS-A measurement [facility] Clam IgE Ab [Units/volume] in Serum [facility] Codfish IgE Ab [Units/volume] in Serum [facility] [place] IgE Ab [Units/volume] in Serum [facility] Cow milk IgE Ab [Units/volume] in Serum [facility] Creatine kinase [Enzymatic activity/volume] in Serum or Plasma [facility] DNA double strand Ab [Units/volume] in Serum [facility] Egg white RAST [facility] Electrophoresis: [id number] [facility] Electrophoresis: gissell ma globulin [facility] Ferritin [Mass/volum e] in Serum or Plasma [facility] Globulin measurement [facility] Hepatitis A virus Ig M Ab [Presence] in Serum [facility] Hepatitis B core ant ibody measurement, IgM type [facility] Hepatitis B surface antigen measurement [facility] Hepatitis C antibody measurement [facility] IgA [Mass/volume] in Serum or Plasma [facility] IgG [Mass/volume] in Serum or Plasma [facility] IgM [Mass/volume] in Serum or Plasma [facility] Iron and Iron bindin g capacity panel - Serum or Plasma [facility] Laboratory data interpretation [facility] MR Biliary ducts and Pancreatic duct WO contrast [facility] Mycobacterium tuberculosis tuberculin stimulated gamma interferon [Presence] in Blood [facility] Neutrophil cytoplasm ic Ab.classic [Units/volume] in Serum [facility] P-ANCA measurement [facility] Patient Education RAD RN Biopsy Liver Dc RAD RN Procedural Sedation [facility] Work Phone: Patient referral [facility] Work Phone: Peanut IgE Ab [Units/volume] in Serum [facility] Protein electrophore sis panel - Serum or Plasma [facility] Scallop RAST [facility] Serum testosterone measurement [facility] Sesame seed RAST [facility] Shrimp IgE Ab [Units/volume] in Serum [facility] Soybean IgE Ab [Units/volume] in Serum [facility] Testosterone Free [Mass/volume] in Serum or Plasma [facility] Hooppole RAST [facility] Wheat IgE Ab [Units/volume] in Serum [facility] Work Phone: [facility] Work Phone: Payers Date Payer Category Payer Self-pay 2024 Unknown [id number] 2016 Unknown [id number] 1980 Unknown [id number] .16.84 [id number] Unknown Tiny BC/BS Unknown [id number] 2.16.8 [id number] Unknown [id number] .16.8 [id number] Unknown [id number] 2.16.8 [id number] Unknown [id number] 2.16.8 [id number] Unknown [id number] 2.16.8 [id number] Unknown [id number] 2.16.8 [id number] Unknown [id number] 2.16.8 40.1.564547.3.579.2.462 Unknown [id number] 2.16.8 [id number] Unknown [id number] 2.16.8 [id number] Unknown [id number] 2.16.8 [id number] Unknown [id number] 2.16.8 40.1.196022.3.579.2.462 Unknown [id number] 2.16.8 [id number] Unknown [id number] 2.16.8 [id number] Unknown [id number] 2.16.8 [id number] Unknown [id number] 2.16.8 [id number] Social History Date Type Detail Facility Caffeine Use Caffeine Use [facility] Work Phone: Comment on above: trying to stay away - 2 children 7 years old and 5 month old boys workss at [employer] [facility] [employer] - but didnt finish Tobacco use: Tobacco use: [facility] Work Phone: Tobacco use: Tobacco use: [facility] Work Phone: Start: 01-31-2024 End: 08-30-2024 Tobacco smoking status NHIS Never smoked tobacco (finding) [facility] Start: 05-02-2020 Occasional Occasional [facility] Start: 05-02-2020 None None [facility] Start: 05-02-2020 With Family With Family [facility] Start: 05-02-2020 Non-smoker Non-smoker [facility] Start: 06-12-2024 Sex Male (finding) [facility] Start: 1980 Sex Assigned At Male [facility] Mental Status Date Assessment Result Facility 08-30-2024 Cognitive function Awake;Alert;Appropriat e [facility] Work Phone: Radiology Diagnostic study note 08-30-2024 Note Date & Type Note Facility 08-30-2024 Radiology Diagnostic study note [facility] Imaging Services [address] [place] [address] Biopsy/Inj or Needle Placement MR#: [id number] Acct: [id number] Name: DORENE VÁZQUEZ Rep #: [id number] : 1980 M 44 From: Susan Egan MD PCP: Dr. Edmund Awan MD Status: RE G CLI Study:Biopsy/Inj or Needle Placement Date of Exam: 08/30/24 Exam# [id number] Ordering Dr: Dayana North DO PROCEDURE: LIVER BIOPSY UNDER CT GUIDANCE 08/30/2024 REASON FOR EXAM: ELEVATED LIVER ENZYMES FATTY LIVER. TECHNIQUE: Contiguous axial scans of 2.5 mm slice thicknesses obtained through the liver. One or more dose reduction techniques were used (e.g., automated exposure control, adjustment of mA and/or kv according to patient size, use of iterative reconstruction technique). RADIATION DOSE SUMMARY: DLP: 1153.15 mGycm COMPARISON: Ultrasound dated 05/11/2024 and 01/14/2024. KUB dated 01/31/2024. FINDINGS: The biopsy procedure was explained to the patient. Informed consent was obtained and the patient was given the opportunity to ask questions concerning the procedure. Patient was placed on the gantry table in a supine position. The marker grid was placed on the right hemiabdomen and scanning was initiated. The site of biopsy was localized as usual and documented. Sterile preparation of the skin was performed in the usual fashion. Local anesthesia was accomplished with lidocaine 2%. An 18 gauge, 10 cm in length, coaxial CorVocet biopsy set was utilized to perform the biopsies. A total of 3 core biopsy specimens were obtained and preserved in formalin. Adequate specimens were documented. Following the final biopsy the coaxial needle was removed and firm pressure was applied to the biopsy site. Sterile dressing was applied as usual. Post biopsy imaging shows no signs of hemorrhage or other abnormalities. SEDATION: 3 MG of Versed intravenously. 50 MCG of fentanyl intravenously. The patient's vital signs were monitored by telemetry during the procedure. CT/Biopsy/Inj or Needle Placement IMPRESSION: 1. SUCCESSFUL RANDOM DIAGNOSTIC LIVER BIOPSY UNDER CT GUIDANCE. PATIENT TOLERATED THE PROCEDURE WELL. THANK YOU FOR THIS REFERRAL. Reading Location: [place] [address] CC: Dr. Edmund Awan MD; Agusto Friend, DO ~ Runner Man: Signed [facility] Evaluation note 08-15-2024 Note Date & Type Note Facility 08-15-2024 Evaluation note Diagnosis Onset Date Resolution Hepatitis acute August 15, 2024 8:56am Obesity acute August 15, 2024 8:56am [facility] Work Phone: Evaluation note Note Date & Type Note Facility Evaluation note No assessment information availa ble [facility] Work Phone: Evaluation note Note Date & Type Note Facility Evaluation note Diagnosis Onset Date Resolution Hepatitis acute August 15, 2024 8:56am Obesity acute August 15, 2024 8:56am [facility] Work Phone: Instructions Note Date & Type Note Facility Instructions Name How to access health information online Indication:Ulcerative colitis Start: 8 Instruction Type:Patient Education How to access health information online - Detail Indication:Ulcerative colitis Start: 8 Instruction Type:Patient Education Patient Instructions Indication:Ulcerative colitis Start: Instruction Type:Provider Instructions for Treatment [facility] Work Phone: Instructions Note Date & Type Note Facility Instructions Name How to access health information online Indication:Ulcerative colitis Start: 8 Instruction Type:Patient Education How to access health information online - Detail Indication:Ulcerative colitis Start: Instruction Type:Patient Education Patient Instructions Indication:Ulcerative colitis Start: 8 Instruction Type:Provider Instructions for Treatment [facility] Work Phone: Reason for referral (narrative) Note Date & Type Note Facility Reason for referral (narrative) No reason for referral information available [facility] Work Phone: Summary Purpose Family History No Family History Records FoundUnknown Family Member Name Dates Details Father Comments:breathing issues Status:Active Maternal Grandfather Comments: Status:Active Maternal Grandmother Comments:dementia or alzheim ers Status:Active Mother Comments:IBS Status:Active Paternal Grandfather Comments:alive and well Status:Active Paternal Grandmother Comments:alive and well Status:Active Unknown Family Member Name Dates Details Father Comments:breathing issues Status:Active Maternal Grandfather Comments: Status:Active Maternal Grandmother Comments:dementia or alzheim ers Status:Active Mother Comments:IBS Status:Active Paternal Grandfather Comments:alive and well Status:Active Paternal Grandmother Comments:alive and well Status:Active Unknown Family Member Name Dates Details Father Comments:breathing issues Status:Active Maternal Grandfather Comments: Status:Active Maternal Grandmother Comments:dementia or alzheim ers Status:Active Mother Comments:IBS Status:Active Paternal Grandfather Comments:alive and well Status:Active Paternal Grandmother Comments:alive and well Status:Active Unknown Family Member Name Dates Details Father Comments:breathing issues Status:Active Maternal Grandfather Comments: Status:Active Maternal Grandmother Comments:dementia or alzheim ers Status:Active Mother Comments:IBS Status:Active Paternal Grandfather Comments:alive and well Status:Active Paternal Grandmother Comments:alive and well Status:Active Relationship Condition Age at Onset Recorded Date/T jason Unknown Family History?- Unknown April 6:02pm Family History?- Unknown April 6:02pm Advance Directives No Advanced Directives Records FoundNo Advanced Directives Records FoundNo Advanced Directives Records Found Instructions Name Dates Details How to access health informa tion online Indication:Ulcerative colitis Start:15-Oct-2017 Instruction Type:Patient Education How to access health informa tion online - Detail Indication:Ulcerative colitis Start:15-Oct-2017 Instruction Type:Patient Education Patient Instructions Indication:Ulcerative colitis Start:15-Oct-2017 Instruction Type:Provider Instructions for Treatment Name Dates Details How to access health informa tion online Indication:Ulcerative colitis Start:15-Oct-2017 Instruction Type:Patient Education How to access health informa tion online - Detail Indication:Ulcerative colitis Start:15-Oct-2017 Instruction Type:Patient Education Patient Instructions Indication:Ulcerative colitis Start:15-Oct-2017 Instruction Type:Provider Instructions for Treatment Name Dates Details How to access health informa tion online Indication:Ulcerative colitis Start:15-Oct-2017 Instruction Type:Patient Education How to access health informa tion online - Detail Indication:Ulcerative colitis Start:15-Oct-2017 Instruction Type:Patient Education Patient Instructions Indication:Ulcerative colitis Start:15-Oct-2017 Instruction Type:Provider Instructions for Treatment Chief Complaint and Reason for Visit Chief Complaint Admit Date LABWORK March 01, 2024 3 :58pm THYROMEGALY March 27, 2024 1:58pm E-ORDER April 27, 2024 1 0:01am HYPERTENSION May 11, 2024 12:21pm HYPERTENSION June 02, 2024 8:51 am Chief Complaint Admit Date E-ORDER April 27, 2024 1 0:01am HYPERTENSION May 11, 2024 12:21pm HYPERTENSION June 02, 2024 8:51 am 2ND OPINION -FATTY LIVER - PER HIS MOM S EE DR. Ordoñez August 15, 2024 8:56am Reason for Visit Admit Date Hepatitis August 15, 2024 8:56a m Obesity August 15, 2024 8:56a m Chief Complaint Admit Date E-ORDER April 27, 2024 1 0:01am HYPERTENSION May 11, 2024 12:21pm HYPERTENSION June 02, 2024 8:51 am 2ND OPINION -FATTY LIVER - PER HIS MOM S EE DR. Ordoñez August 15, 2024 8:56am INT LAB ORDERS August 15, 2024 10:32 am Chief Complaint Admit Date HYPERTENSION May 11, 2024 12:21pm HYPERTENSION June 02, 2024 8:51 am 2ND OPINION -FATTY LIVER - PER HIS MOM S EE DR. Ordoñez August 15, 2024 8:56am INT LAB ORDERS August 15, 2024 10:32 am ELEVATED LIVER ENZYMES, HEPATITIS, OBESI TY August 30, 2024 8:47am Chief Complaint Admit Date HYPERTENSION June 02, 2024 8:51 am 2ND OPINION -FATTY LIVER - PER HIS MOM S EE DR. Ordoñez August 15, 2024 8:56am INT LAB ORDERS August 15, 2024 10:32 am ELEVATED LIVER ENZYMES, HEPATITIS, OBESI TY August 30, 2024 8:47am Test Result September 14, 2024 2:55 pm Additional Source Comments (unrecognized sect ion and content) No Status Records FoundNo Status Records FoundNo Status Records Found INFORMATION SOURCE (unrecogn ized section and content) DATE CREATED AUTHOR 02/13/2018 [facility] DATE CREATED AUTHOR AUTHOR'S ORGANIZ ATION [facility] DATE CREATED AUTHOR AUTHOR'S ORGANIZ ATION 09/19/2024 [facility] Teams (unrecognized sec tion and content) Team Status: Active Member Role Status Dates Dr. Edmund Awan MD Primary Care Provider Active Team Status: Inactive Member Role Status Dates Dr. Amalia Wu DO Primary Care Provider Active Start: March 01, 2024 End: March 01, 2024 Dr. Amari Serra MD Attending Provider Active Start: March 01, 2024 End: March 01, 2024 Dr. Amari Serra MD Referring Provider Active Start: March 01, 2024 End: March 01, 2024 Team Status: Inactive Member Role Status Dates Dr. Amalia Wu DO Primary Care Provider Active Start: March 23, 2024 End: March 23, 2024 Dr. Edmund Awan MD Attending Provider Active Start: March 23, 2024 End: March 23, 2024 Dr. Edmund Awan MD Referring Provider Active Start: March 23, 2024 End: March 23, 2024 Team Status: Inactive Member Role Status Dates Dr. Edmund Awan MD Primary Care Provider Active Start: March 27, 2024 End: March 27, 2024 Dr. Edmund Awna MD Attending Provider Active Start: March 27, 2024 End: March 27, 2024 Dr. Edmund Awan MD Referring Provider Active Start: March 27, 2024 End: March 27, 2024 Team Status: Inactive Member Role Status Dates Dr. Edmund Awan MD Primary Care Provider Active Start: April 27, 2024 End: April 27, 2024 Dr. Edmund Awan MD Attending Provider Active Start: April 27, 2024 End: April 27, 2024 Dr. Edmund Awan MD Referring Provider Active Start: April 27, 2024 End: April 27, 2024 Team Status: Inactive Member Role Status Dates Dr. Edmund Awan MD Primary Care Provider Active Start: May 11, 2024 End: May 11, 2024 Dr. Edmund Awan MD Attending Provider Active Start: May 11, 2024 End: May 11, 2024 Dr. Edmund Awan MD Referring Provider Active Start: May 11, 2024 End: May 11, 2024 Team Status: Inactive Member Role Status Dates Dr. Edmund Awan MD Primary Care Provider Active Start: June 02, 2024 End: June 02, 2024 Dr. Edmund Awan MD Attending Provider Active Start: June 02, 2024 End: June 02, 2024 Dr. Edmund Awan MD Referring Provider Active Start: June 02, 2024 End: June 02, 2024 Team Status: Active Member Role Status Dates Dr. Edmund Awan MD Primary Care Provider Active Start: June 02, 2024 Dr. Edmund Awan MD Referring Provider Active Start: June 02, 2024 Dr. Jason Krishna MD Attending Provider Active S tart: June 02, 2024 Team Status: Active Member Role Status Dates Dr. Edmund Awan MD Primary Care Provider Active Start: August 10, 2024 Dr. Edmund Awan MD Attending Provider Active Start: August 10, 2024 Dr. Edmund Awan MD Referring Provider Active Start: August 10, 2024 Team Status: Inactive Member Role Status Dates Dr. Edmund Awan MD Primary Care Provider Active Start: August 15, 2024 End: August 15, 2024 Dr. Edmund Awan MD Referring Provider Active Start: August 15, 2024 End: August 15, 2024 Dr. Agusto North DO Attending Provider Active Start: August 15, 2024 End: August 15, 2024 Team Status: Inactive Member Role Status Dates Dr. Edmund Awan MD Primary Care Provider Active Start: August 10, 2024 End: August 10, 2024 Dr. Edmund Awan MD Attending Provider Active Start: August 10, 2024 End: August 10, 2024 Dr. Edmund Awan MD Referring Provider Active Start: August 10, 2024 End: August 10, 2024 Team Status: Active Member Role Status Dates Dr. Edmund Awan MD Primary Care Provider Active Start: August 15, 2024 Dr. Agusto North DO Attending Provider Active Start: August 15, 2024 Dr. Agusto North DO Referring Provider Active Start: August 15, 2024 Team Status: Inactive Member Role Status Dates Dr. Edmund Awan MD Primary Care Provider Active Start: August 15, 2024 End: August 15, 2024 Dr. Agusto North DO Attending Provider Active Start: August 15, 2024 End: August 15, 2024 Dr. Agusto North DO Referring Provider Active Start: August 15, 2024 End: August 15, 2024 Team Status: Inactive Member Role Status Dates Dr. Edmund Awan MD Primary Care Provider Active Start: August 30, 2024 End: August 30, 2024 Dr. Agusto North DO Attending Provider Active Start: August 30, 2024 End: August 30, 2024 Dr. Agusto North DO Referring Provider Active Start: August 30, 2024 End: August 30, 2024 Dr. Andrew Ramirez MD Other Provider Active Start: August 30, 2024 End: August 30, 2024 Team Status: Inactive Member Role Status Dates Dr. Edmund Awan MD Primary Care Provider Active Start: September 14, 2024 End: September 14, 2024 Dr. Edmund Awan MD Referring Provider Active Start: September 14, 2024 End: September 14, 2024 Dr. Agusto North DO Attending Provider Active Start: September 14, 2024 End: September 14, 2024 Goals (unrecognized section and content) Goals may be documented in a n alternate sectionGoals may be documented in an alternate sectionGoals may be documented in an alternate sectionGoals may be documented in an alternate sectionGoals may be documented in an alternate sectionGoals may be documented in an alternate section FOR RECORDS PERTAINING TO PATIENTS WHO ARE OR HAVE BEEN ENROLLED IN A CHEMICAL DEPENDENCY/SUBSTANCEABUSE PROGRAM, SOME INFORMATION MAY BE OMITTED. This clinical summary was aggregated from multiple sources. Caution should be exercised in using it in the provision of clinical care. This summary normalizes information from multiple sources, and as a consequence, information in this document may materially change the coding, format and clinical context of patient data. In addition, data may be omitted in some cases. CLINICAL DECISIONS SHOULD BE BASED ON THE PRIMARY CLINICAL RECORDS. [employer] [facility]. provides no warranty or guarantee of the accuracy or completeness of information in this document.
== END | disposition home or self-care (01) ==
LOC: MRI 07:24 → OPMRI 07:28
PROVIDERS: PCP Family Medicine; Referring Provider Internal Medicine Gastroenterology; Visit Provider Internal Medicine Gastroenterology
DX: K75.9 Inflammatory liver disease, unspecified (principal); E66.9 Obesity, unspecified
CPT/HCPCS: 74181

== ENCOUNTER → 2024-10-06 | Outpatient (CLI) | payer OTHER, SELFPAY ==
--- NOTE | 2024-10-06 12:53 | CT_ITS ---
PROCEDURE: SINUS/FACIAL BONE 10/06/2024 REASON FOR EXAM: OTHER CHRONIC SINUSITIS TECHNIQUE: SINUS/FACIAL BONE Coronal and Sagittal reconstruction series were provided. One or more dose reduction techniques were used (e.g., Automated exposure control, adjustment of the mA and/or kV according to patient size, use of iterative reconstruction technique). RADIATION DOSE SUMMARY: CTDlvol: 33.06 mGy DLP: 730.55 mGycm COMPARISON: None FINDINGS: Frontal: Unremarkable Ethmoid: Minimal mucosal thickening. Sphenoid: Unremarkable Maxillary: Focal polyp or retention cyst in the anterior inferior medial aspect of the left maxillary sinus. Turbinates: Hypertrophy of the inferior turbinate in the left nasal fossa. Nasal Septum: Nasal septal deviation towards the left side of the midline. Mastoids/Middle Ears: Unremarkable CT/Sinus/Facial Bone IMPRESSION: Focal polyp or retention cyst along the anterior inferior medial aspect of the left maxillary sinus. Minimal mucosal thickening of the ethmoid sinuses. Nasal septal deviation towards the left side of the midline. Hypertrophy of the inferior turbinate in the left nasal fossa. Reading Location: [place] [id number]
== END | disposition home or self-care (01) ==
LOC: CT 12:50
PROVIDERS: PCP Family Medicine; Referring Provider Otolaryngology; Visit Provider Otolaryngology
DX: J32.9 Chronic sinusitis, unspecified (principal)
CPT/HCPCS: 70486

== ENCOUNTER → 2025-01-19 | Outpatient (CLI) | payer OTHER, SELFPAY ==
[2025-01-19 11:11] LABS: Mucous, Urine 0 SEEN /hpf (<or=2+); Red Blood Cells-Urine 0 SEEN /hpf (0-5); Squamous Epithelial Cells - UA 0 SEEN /hpf (0-5)
[2025-01-19 12:16] LABS: Hematocrit 48.2 % (40-54); Hemoglobin 17.0 g/dL (13.0-16.5); Immature Granulocytes Count 0.050 X10^3/uL (0.0-0.0); Mean Corp Hgb Conc 35.3 g/dL (32-36); Mean Corpuscular Volume 83.5 fL (80-94); Mean Platelet Vol. 12.5 fl (6.2-12.0); NRBC Flagged by Analyzer 0 % (0-5); Platelet Count 192 K/mm3 (150-450); RBC Distribution Width CV 13.2 % (11.6-14.6); RBC Distribution Width SD 39.8 fl (35.1-43.9); Red Blood Count 5.77 M/mm3 (4.6-6.2); White Blood Count 7.6 K/mm3 (4.4-11.0)
[2025-01-19 12:31] LABS: Color, Urine Yellow (Yellow); Glucose, Dipstick Normal (Normal); Ketone-Dipstick Negative (Negative); Leukocyte Esterase-Dipstick Negative /ul (Negative); Nitrite-Dipstick Negative (Negative); Occult Blood-Urine Negative /ul (Negative); Protein-Dipstick 100 mg/dl (Negative); Specific Gravity, Urine 1.020 (1.002-1.030); Urine Bilirubin Dipstick Negative (Negative)
[2025-01-19 15:28] LABS: AST(SGOT) 39 U/L (<=37); Alanine Aminotransfer ALT/SGPT 84 U/L (<=46); Albumin, Serum 4.3 g/dL (3.5-5.0); Alkaline Phosphatase 74 U/L (40-129); Anion Gap 11 (5-15); BUN 14 mg/dL (4-19); BUN/Creat Ratio 14.8 RATIO (10-20); Calcium,Total 9.2 mg/dL (7.6-11.0); Carbon Dioxide 22.9 mmol/L (21.0-32.0); Chloride 106 mmol/L (98-108); Cholesterol 111 mg/dL (<=200); Globulin 3.2 g/dL (2.2-4.2); Glucose 120 mg/dL (70-99); Low Density Lipoprotein Calc. 40 mg/dL; Potassium 4.2 mmol/L (3.3-5.1); Triglycerides 76 mg/dL; Very Low Density Lipoprotein 15 mg/dL (5-40); cholesterol:hdl ratio screen 1.99
[2025-01-23 15:35] LABS: Hepatitis B Surface Antigen Nonreactive (Nonreactive); Hepatitis C Antibody Nonreactive (Nonreactive)
== END | disposition home or self-care (01) ==
LOC: MFPLAB 11:08
PROVIDERS: PCP Family Medicine; Visit Provider Family Medicine
DX: I10 Essential (primary) hypertension (principal); E03.8 Other specified hypothyroidism; R73.09 Other abnormal glucose; R79.89 Other specified abnormal findings of blood chemistry
CPT/HCPCS: 36415; 80053; 80061; 81001; 83036; 84439; 84443; 85025; 86706; 86803; 87340